=== PATIENT | female | born 1940 | race Caucasian/White ===

== ENCOUNTER 2016-08-28 13:36 | Inpatient (IN) | payer OTHER ==
[~2016-08-28] VITALS: Ht 165.1 cm; Wt 68.1 kg
[~2016-08-28 13:36] MED LIST: HYDC25 PO; LVXUNK
[2016-08-28] MEDS ORDERED: SODIUM CHLORIDE 0.9% 1000ML 1,000 ML IV STA ×2 (14:14→16:19)
[2016-08-28] MEDS ORDERED: ALBUT/IPRATROP 3MG/0.5MG NEB 3 ML VIAL INH STA (14:19)
[2016-08-28 14:30] LABS: INR 1.3 (0.9-1.1); PROTHROMBIN TIME (PATIENT) 14.3 SECONDS (9.0-12.0)
[2016-08-28 14:37] LABS: HEMATOCRIT 32.1 % (37-47); MEAN CELL VOLUME 85.4 fL (80-100); MEAN CORPUSCULAR HEMOGLOBIN 30.3 pg (25-34); MEAN CORPUSCULAR HGB CONC 35.5 g/dl (32-36); PLATELET COUNT 21 K/uL (130-400); RED BLOOD COUNT 3.76 M/uL (4.2-5.4)
[2016-08-28 14:40] LABS: ALT/SGPT 25 U/L (12-78); AST/SGOT 68 U/L (15-37); BLOOD UREA NITROGEN 16 mg/dl (7-18); BUN/CREATININE RATIO 18.5 (10-20); CALCIUM 7.8 mg/dl (8.5-10.1); CARBON DIOXIDE 24 mmol/L (21-32); CHLORIDE 95 mmol/L (98-107); CREATININE 0.88 mg/dl (0.60-1.20); GLUCOSE 91 mg/dl (70-99); POTASSIUM 3.4 mmol/L (3.5-5.1); SODIUM 131 mmol/L (136-145)
[2016-08-28 14:45] LABS: ALB/GLOB RATIO 1.3 (0.9-2); ALKALINE PHOSPHATASE 114 U/L (45-117)
[2016-08-28] MEDS ORDERED: HYDR12.56 PO (14:51)
[2016-08-28] MEDS ORDERED: LEVO100T PO (14:51)
[2016-08-28] MEDS ORDERED: CHOL100010 PO (14:51)
[2016-08-28 14:53] LABS: BASO % 0.3 %; BASO ABS # 0.01 K/uL (0-0.2); COMPLETE YES; IG% 1.5 %; LYMPH % 28.8 %; LYMPH ABS # 0.95 K/uL (1.2-3.4); NEUT % 49.4 %
--- NOTE | 2016-08-28 14:53 | DIAGNOSTIC IMAGING REPORT ---
CHEST ONE VIEW PORTABLE CLINICAL HISTORY: sob dyspnea COMPARISON STUDY: 09/15/2009 FINDINGS: The bones soft tissues and hemidiaphragms are normal. The cardiomediastinal silhouette is normal. The lungs are clear. The pulmonary vasculature is normal. IMPRESSION: Negative chest. Electronically signed by: Bassam Veliz M.D. 08/28/2016 2:52 PM Dictated Date/Time: 08/28/2016 2:51 PM
[2016-08-28] MEDS ORDERED: ONDANSETRON INJ 2 MG/ML 2 ML VIAL IV PRN (17:45)
--- NOTE | 2016-08-28 17:55 | EMERGENCY ROOM VISIT NOTE ---
History Report prepared by [place]: Nyasia Campos Under the Supervision of: Dr. Radha Lee D.O. First contact with patient: 13:58 Chief Complaint: SHORTNESS OF BREATH Stated Complaint: CAN'T BREATH -DIZZY Nursing Triage Summary: pt here with increased sob, dizziness x a few days. pt currently undergoing chemo tx for lymphoma. denies any cough or fevers History of Present Illness The patient is a 76 year old female who presents to the Emergency Room with complaints of worsening shortness of breath that started several weeks ago. The shortness of breath is worse with exertion. The patient's daughter states that the patient has received two chemotherapy treatments for lymphoma in her chest and abdomen. The patient's most recent treatment was around August 07 and she is due for her next treatment on September 09. The patient receives fluids the day after receiving treatment to make sure that she stays hydrated. The patient is also experiencing dizziness and lightheadedness with changes in position as well as a decreased appetite. She is also experiencing diffuse abdominal pain, but denies abdominal bloating. The patient states that her bowel movements have been intermittent, which may be secondary to her decreased food intake as well as being on pain pills prior to starting chemotherapy treatments. The patient's daughter states that the patient experienced constipation when she was on pain medication, but since then she has been taking a stool softener. She denies fevers, chills, chest pain or pressure, and diarrhea. The patient's daughter states that the patient has experienced some nausea and vomiting this morning. The patient is on medication for hypertension, which she took this morning. The patient's daughter adds that the patient was seen by her PCP twice, once 4 days ago and once 7 days ago. The patient was tachycardic during both of those visits in the 110s, per the patient's daughter. When the patient was seen by her PCP 7 days ago, she had an EKG and a chest x-ray done, which were both unremarkable. She also had a chest CT done 4 days ago and it showed that the lymphoma in her chest has decreased in size. The patient's daughter adds that the patient has an order for nasal cannula oxygen, but they have not picked it up yet. The patient's daughter called the patient's PCP and they recommended coming into the ED to make sure that there wasn't anything more significant going on. The patient denies any history of heart problems and she is not on any blood thinners. She denies any history of asthma or COPD. Source of History: patient, family (daughter) Onset: several weeks ago Position: chest Quality: other (shortness of breath) Timing: worsening Associated Symptoms: + abdominal pain (diffuse), + nausea, + vomiting, No chest pain, No chills, No diarrhea, No fevers Note: dizziness and lightheadedness with changes in position, decreased appetite, no abdominal bloating Review of Systems See HPI for pertinent positives & negatives. A total of 10 systems reviewed and were otherwise negative. 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 (2) Hypertension (3) Lymphoma (4) SOBOE (shortness of breath on exertion) (5) Thrombocytopenia Surgical Problems: (1) History of hysterectomy Family History Cancer Heart disease Hypertension Social History Smoking Status: Former Smoker Marital Status: Current/Historical Medications Scheduled Cholecalciferol (Vitamin D), 1,000 UNITS PO DAILY Hydrochlorothiazide (Hctz), 12.5 MG PO DAILY Levothyroxine Sodium (Synthroid), 100 MCG PO DAILY Allergies Coded Allergies: No Known Allergies (Unverified , 08/28/16) Physical Exam Vital Signs Date Time Temp Pulse Resp B/P Pulse Ox O2 Delivery O2 Flow Rate FiO2 08/28/16 17:17 94/47 08/28/16 17:16 82 23 95 08/28/16 16:46 92 23 77 08/28/16 16:41 107/48 08/28/16 16:34 95 22 92/42 94 Room Air 08/28/16 16:16 94 21 08/28/16 16:08 92/42 08/28/16 16:07 82/41 08/28/16 15:46 93 20 08/28/16 15:41 95 17 08/28/16 15:13 89/50 08/28/16 15:11 98 15 08/28/16 14:41 102 18 08/28/16 14:36 101 13 08/28/16 14:31 106 19 08/28/16 14:26 107 21 08/28/16 14:21 104 20 08/28/16 14:16 105 15 08/28/16 14:11 110 15 08/28/16 14:06 109 18 08/28/16 14:01 109 16 08/28/16 13:56 112 22 08/28/16 13:55 95 Room Air 08/28/16 13:55 37.1 114 20 75/44 95 Room Air 08/28/16 13:53 95 Room Air 08/28/16 13:52 114 08/28/16 13:51 95 Room Air 08/28/16 13:51 93/49 08/28/16 13:39 37.1 118 20 75/44 88 Room Air Physical Exam GENERAL: alert, ill appearing, well nourished, no distress, non-toxic, thin EYE EXAM: normal conjunctiva, PERRL and EOM's grossly intact OROPHARYNX: dentures in place, no exudate, no erythema, lips, buccal mucosa, and tongue normal and mucous membranes are moist NECK: supple, no nuchal rigidity, no adenopathy, non-tender LUNGS: Clear to auscultation. Normal chest wall mechanics HEART: no murmurs, S1 normal and S2 normal ABDOMEN: abdomen soft, generalized discomfort during exam, normo-active bowel sounds, no masses, no rebound or guarding. BACK: Back is symmetrical on inspection and there is no deformity, no midline tenderness, no CVA tenderness. SKIN: no rashes and no bruising UPPER EXTREMITIES: upper extremities are grossly normal. LOWER EXTREMITIES: No pitting edema. NEURO EXAM: Normal sensorium, cranial nerves II-XII grossly intact, normal speech, no gross weakness of arms, no gross weakness of legs. Medical Decision & Procedures ER Provider Diagnostic Interpretation: Radiology results have been interpreted by the radiologist and reviewed by me. CHEST ONE VIEW PORTABLE FINDINGS: The bones soft tissues and hemidiaphragms are normal. The cardiomediastinal silhouette is normal. The lungs are clear. The pulmonary vasculature is normal. IMPRESSION: Negative chest. Electronically signed by: Bassam Veliz M.D. 08/28/2016 2:52 PM Dictated Date/Time: 08/28/2016 2:51 PM Laboratory Results 08/28/16 14:06 Red Blood Count 3.76, Mean Corpuscular Volume 85.4, Mean Corpuscular Hemoglobin 30.3, Mean Corpuscular Hemoglobin Concent 35.5, Neutrophils (%) (Auto) 49.4, Lymphocytes (%) (Auto) 28.8, Monocytes (%) (Auto) 20.0, Eosinophils (%) (Auto) 0.0, Basophils (%) (Auto) 0.3, Neutrophils # (Auto) 1.63, Lymphocytes # (Auto) 0.95, Monocytes # (Auto) 0.66, Eosinophils # (Auto) 0.00, Basophils # (Auto) 0.01 08/28/16 14:06 Test 08/28/16 14:06 08/28/16 14:32 White Blood Count 3.30 K/uL (4.8-10.8) Red Blood Count 3.76 M/uL (4.2-5.4) Hemoglobin 11.4 g/dL (12.0-16.0) Hematocrit 32.1 % (37-47) Mean Corpuscular Volume 85.4 fL (80-100) Mean Corpuscular Hemoglobin 30.3 pg (25-34) Mean Corpuscular Hemoglobin Concent 35.5 g/dl (32-36) Platelet Count 21 K/uL (130-400) Neutrophils (%) (Auto) 49.4 % Lymphocytes (%) (Auto) 28.8 % Monocytes (%) (Auto) 20.0 % Eosinophils (%) (Auto) 0.0 % Basophils (%) (Auto) 0.3 % Neutrophils # (Auto) 1.63 K/uL (1.4-6.5) Lymphocytes # (Auto) 0.95 K/uL (1.2-3.4) Monocytes # (Auto) 0.66 K/uL (0.11-0.59) Eosinophils # (Auto) 0.00 K/uL (0-0.5) Basophils # (Auto) 0.01 K/uL (0-0.2) RDW Standard Deviation 53.5 fL (36.4-46.3) RDW Coefficient of Variation 17.1 % (11.5-14.5) Immature Granulocyte % (Auto) 1.5 % Immature Granulocyte # (Auto) 0.05 K/uL (0.00-0.02) Nucleated RBC Absolute Count (auto) 0.03 K/uL (0-0) Nucleated Red Blood Cells % 0.8 % Prothrombin Time 14.3 SECONDS (9.0-12.0) Prothromb Time International Ratio 1.3 (0.9-1.1) Activated Partial Thromboplast Time 25.2 SECONDS (21.0-31.0) Partial Thromboplastin Ratio 1.0 D-Dimer 370 ug/L FEU (0-500) Anion Gap 12.0 mmol/L (3-11) Est Creatinine Clear Calc Drug Dose 45.3 ml/min Estimated GFR () 74.5 Estimated GFR (Non- 64.3 BUN/Creatinine Ratio 18.5 (10-20) Calcium Level 7.8 mg/dl (8.5-10.1) Total Bilirubin 1.7 mg/dl (0.2-1) Aspartate Amino Transf (AST/SGOT) 68 U/L (15-37) Alanine Aminotransferase (ALT/SGPT) 25 U/L (12-78) Alkaline Phosphatase 114 U/L (45-117) Troponin I < 0.015 ng/ml (0-0.045) Pro-B-Type Natriuretic Peptide 868 pg/ml (0-900) Total Protein 5.0 gm/dl (6.4-8.2) Albumin 2.8 gm/dl (3.4-5.0) Globulin 2.2 gm/dl (2.5-4.0) Albumin/Globulin Ratio 1.3 (0.9-2) Bedside Troponin I 0.000 ng/ml (0-0.045) Laboratory results per my review. Medications Administered Medications (Trade) Dose Ordered Sig/Shiela Route Start Time Stop Time Status Last Admin Dose Admin Sodium Chloride (Nss 1000ml) 1,000 ml @ 999 mls/hr Q1H1M STAT IV 08/28/16 14:14 08/28/16 15:14 DC 08/28/16 14:54 999 MLS/HR Albuterol/ Ipratropium 3 ml 3 ml NOW STAT INH 08/28/16 14:19 08/28/16 14:20 DC 08/28/16 14:52 3 ML Sodium Chloride (Nss 1000ml) 1,000 ml @ 999 mls/hr Q1H1M STAT IV 08/28/16 16:19 08/28/16 17:19 DC 08/28/16 16:34 999 MLS/HR Acetaminophen (Tylenol Tab) 650 mg Q4H PRN PO 08/28/16 17:45 09/27/16 17:44 08/28/16 23:15 650 MG ECG Indication: SOB/dyspnea Rate (beats per minute): 110 Rhythm: sinus tachycardia Findings: PAC (occasional), no acute ischemic change, left axis deviation ( otherwise normal intervals), other (low voltage throughout) ED Course 1400: The patient was evaluated in room C8. A complete history and physical exam was performed. 1414: Ordered Sodium Chloride 1000 ml @ 999 mls/hr IV 1419: Ordered DuoNeb 3 ml INH 1507: I reassessed the patient. Her breathing is better and her tachycardia has improved. She is still hypotensive. 1607: I reevaluated the patient. She is resting comfortably, but her blood pressure is still low. 1619: Ordered Sodium Chloride 1000 ml @ 999 mls/hr IV 1640: I reassessed the patient. Her blood pressure is coming up. 1709: I reviewed the patient's case with Dr. Davi John. He asked me to call Hematology/Oncology. He will evaluate the patient for further management. 1716: Upon reevaluation, the patient is resting comfortably. I discussed the findings and the treatment plan with the patient. She expresses agreement and understanding. [facility] The patient will be evaluated for further management. 1725: I reviewed the patient's case with Dr. Hernandez - Hematology. He is in agreement with the treatment plan and agrees with not doing anything to further treat the patient at this time. Medical Decision Differential diagnoses includes but is not limited to pneumonia, bronchitis, COPD/Asthma exacerbation, pneumothorax, pulmonary embolism, congestive heart failure, acute coronary syndrome. Medication Reconciliation: I attest that I have personally reviewed the patient' s current medication list. Blood pressure screening: Patient was found to have an elevated blood pressure and was referred to their primary doctor for recheck and further treatment. Pt improved here following IVF and neb tx. No hypoxia. BP improved into 2nd liter of IVF. No further difficulty breathing after neb tx. Likely underlying copd, pt is a reformed smoker. Dimer negative, cxr negative, given improvement in breathing did not feel warranted emergent repeat chest Ct. Doubt cardiac pathology. Pt dehydrated, pancytopenic and worsening thrombocytopenia compared to outpt labs last week reviewed. Bilirubin improved from last week. No abd pain. Pt Bp and HR improved here, however pt still clinically dehydrated, admitted given immunocompromised, dehydrated, monitoring of labs. No active bleeding noted. No indication for platelet transfusion. Doubt bacteremia/ sepsis. Doubt neutropenic fever. Doubt vascular etiology. Other labs reassuring, doubt acute Gi pathology. Generalized discomfort, doubt perf, mesenteric ischemia, colitis, volvulus, Gu pathology. Pt with constipation and dehydration, decreased po intake all likely contributing. Abd soft, no r/g, no distention or tympany. Consults Time Called: 1705 Consulting Physician: Dr. Davi John Returned Call: 1709 I reviewed the patient's case with Dr. Davi John. He asked me to call Hematology/Oncology. He will evaluate the patient for further management. Additional Consults: Time Called: 1716 Consulted Physician: Dr. David Benson Returned Call: 1725 Additional Comments: I reviewed the patient's case with Dr. David Benson. He is in agreement with the treatment plan and agrees with not doing anything to further treat the patient at this time. Impression Primary Impression: Dehydration Additional Impressions: Dyspnea Hypotension Critical Care I have personally spent 30 minutes of critical care time in the direct management of this patient. This includes bedside care, interpretation of diagnostic studies, and testing, discussion with consultants, patient, and family members, and other required patient management activities. This 30 minutes is in excess of all separately billable procedures. Scribe Attestation The scribe's documentation has been prepared under my direction and personally reviewed by me in its entirety. I confirm that the note above accurately reflects all work, treatment, procedures, and medical decision making performed by me. Departure Information Dispostion Being Evaluated By Hospitalist Laurita Acuña M.D. (PCP) Patient Instructions My [facility] Problem Qualifiers Additional Impressions: Dyspnea Dyspnea type: dyspnea on exertion Qualified Codes: R06.09 - Other forms of dyspnea Hypotension Hypotension type: unspecified hypotension type Qualified Codes: I95.9 - Hypotension, unspecified
[2016-08-28] MEDS ORDERED: ALBUTEROL 0.083% NEBU SOLN 3 ML VIAL INH PRN (18:00)
[2016-08-28 18:30] VITALS: BP 95/56; TEMP 37; BMI 19.3
[2016-08-28 18:36] VITALS: BP 95/56; PULSE 97; TEMP 37; O2SAT 92
[2016-08-28] MEDS ORDERED: IV FLUIDS COMPLETED PRN (19:30)
--- NOTE | 2016-08-28 19:57 | HISTORY & PHYSICAL EXAMINATION ---
DATE OF ADMISSION: 08/28/2016 PRIMARY CARE PHYSICIAN: Dr. Azevedo. CHIEF COMPLAINT: Shortness of breath for the last 2 months. HISTORY OF PRESENT COMPLAINT: She is a 76-year-old female with significant past medical history including chronic lymphocytic leukemia, in relapse on monthly chemotherapy, chronic kidney disease stage III, thrombocytopenia, hypertension, hypothyroidism, apparently has been complaining of shortness of breath which has been ongoing for the last few months. The condition has gotten worse for the last few days and apparently she was seen by her primary care physician on for the same problem. She was advised to take oxygen, but the condition got worse and she was brought into the Emergency Room for further evaluation. She has had her chemo on 12 of August with [place] and she has had blood test done on that showed a white count of 4.30, hemoglobin 12.8, hematocrit 37.5, and platelets 49. She also had a CAT scan done that was on 24 August and reported as improved lymphadenopathy in the chest and abdomen with the exception of an enlarging right hilar lymph node with possible post infection/inflammatory changes in the right lung. In the Emergency Room, she got better with treatment with albuterol and also she got some IV fluid. She denies to any fever, chills or rigors. No abdominal pain, nausea, vomiting, no swelling of the legs. No weight gain, no chest pain, palpitation, no problem with urine and/or bowel habit. No dizziness, no blurred vision, no numbness or tingling in the extremities. At ER, her lab works remained fairly unremarkable, but she was admitted to medical floor for continuation of care. PAST MEDICAL HISTORY: Significant for chronic lymphocytic leukemia, in relapse and with ongoing chemo; thrombocytopenia, chronic kidney disease stage III, hypothyroidism and hypertension. PAST SURGICAL HISTORY: Significant for total hysterectomy in 1983 secondary to fibroids. FAMILY HISTORY: Brother has heart disease status post PTCA; father had heart disease, CABGs at the age of 50s and at 82; sister has heart disease as well; mother had a stroke at the age of 82. SOCIAL HISTORY: She is a . She lives alone. She quit smoking years ago with a 10-year, 10-packet history of smoking, does not use any alcohol and she has been reasonably ambulant. ALLERGIES: NKDA. MEDICATIONS AN OUTPATIENT: She has been on hydrochlorothiazide 12.5 mg daily, vitamin D 1000 units daily, and levothyroxine 100 mcg daily. REVIEW OF SYSTEMS: Other systemic system review unremarkable except those mentioned in history of present complaint. PHYSICAL EXAMINATION: GENERAL: On examination, in the Emergency Room, she was not having any acute distress. VITAL SIGNS: Temperature 37.1, pulse was 93, blood pressure 92/42 and saturation 95% on room air. HEENT: Unremarkable. NECK: Supple. No JVD, no bruit. CHEST: Clear to auscultate bilaterally. HEART: S1, S2 regular, no murmur. ABDOMEN: Soft, benign, nontender, no organomegaly. Bowel sounds present. EXTREMITIES: 1+ edema bilaterally. MUSCULOSKELETAL SYSTEM: No acute arthritis involving any joint. CENTRAL NERVOUS SYSTEM: She was alert, awake, oriented x3 and no focal sensory and/or motor deficit appreciated. LABORATORY DATA: Noted today - white count was 3.30, H\T\H 11.4/32.1 and platelet was 21. Her counts are better on with a white count 4.30, H\T\H 12.8/37.5, platelets 49. Sodium 131, potassium 3.4, chloride 95, carbon dioxide 24, BUN 16, creatinine 0.88, random glucose 91. Calcium 7.8, total bilirubin 1.7, AST 68. Troponin less than 0.05. Albumin was 2.8. PT/INR unremarkable. Her INR 1.3. IMAGING DATA: Chest x-ray, negative chest. EKG was in sinus rhythm, a rate of 110 per minute, normal axis and a few atrial premature complexes. IMPRESSION AND PLAN: 1. Progressive shortness of breath, the causes could be related to chronic obstructive pulmonary disease of being a smoker in the past. No evidence of any infiltration and/or effusion on x-ray, no evidence of congestive heart failure. We will get echocardiograph to evaluate cardiac function. The patient improved with bronchodilator. We will give nebulized bronchodilator while in the hospital. Will need to see bread racker as an outpatient and no antibiotic at this time because no signs or symptoms of infection. 2. Chronic lymphocytic leukemia in the labs, has been getting chemotherapy monthly. Last chemo was on 12 of August. She does have pancytopenia with Platelet count of 21, as of today. Will observe that in the hospital. 3. Pancytopenia with thrombocytopenia, in part due to ongoing chemo. No transfusion until the Platelet count is count below 10 or any bleeding episodes. The case was discussed with it applications manager home school coordinator. 4. Hypertension, has been on hydrochlorothiazide. Will hold for hypotension and give her a small amount of IV fluid. 5. Hyperthyroidism. Continue with replacement. 6. Gastrointestinal prophylaxis with Maalox, Mylanta. 7. Deep venous thrombosis prophylaxis with sequential compression devices. No pharmacological anticoagulation due to low platelet. 8. Code status - she will be a full code. In my clinical judgment, the beneficiary meets criteria as per CMS for 2-midnight stay in the hospital. MTDD
[2016-08-28] MEDS: NSS + 20MEQ KCL 1000ML 1,000 ML IV SCH (20:23)
[2016-08-28] MEDS: ACETAMINOPHEN 325 MG TAB PO PRN (23:15)
[2016-08-28 23:54] VITALS: BP 96/54; PULSE 107; TEMP 38.8; O2SAT 94
[2016-08-29] VITALS (12 sets, daily range): BP systolic 80–119; BP diastolic 45–68; PULSE 75–100; TEMP 36.4–37.6; O2SAT 92–99; BMI 20.2
[2016-08-29] MEDS: LEVOTHYROXINE 100 MCG TAB PO SCH (06:28)
[2016-08-29 06:57] LABS: BUN/CREATININE RATIO 18.1 (10-20); CALCIUM 7.1 mg/dl (8.5-10.1); CREATININE 0.72 mg/dl (0.60-1.20); MAGNESIUM 1.5 mg/dl (1.8-2.4); PHOSPHORUS 1.6 mg/dl (2.5-4.9); POTASSIUM 3.1 mmol/L (3.5-5.1)
[2016-08-29 07:00] LABS: HEMATOCRIT 28.5 % (37-47); MEAN CELL VOLUME 85.8 fL (80-100); MEAN CORPUSCULAR HEMOGLOBIN 28.6 pg (25-34); MEAN CORPUSCULAR HGB CONC 33.3 g/dl (32-36); PLATELET COUNT 14 K/uL (130-400); RED BLOOD COUNT 3.32 M/uL (4.2-5.4); WHITE BLOOD COUNT 2.32 K/uL (4.8-10.8)
[2016-08-29] MEDS ORDERED: POTASSIUM PHOS 3 MMOL/1 ML INFUSION IV STA (07:52)
[2016-08-29] MEDS ORDERED: POTASSIUM PHOSPHATE INJ 30 MMOL in SODIUM CHLORIDE 0.9% 500ML 500 ML IV ONE (08:30)
[2016-08-29] MEDS: CHOLECALCIFEROL 1000 INTER.UNIT TAB PO SCH (08:32)
[2016-08-29] MEDS: NSS + 20MEQ KCL 1000ML 1,000 ML IV SCH ×2 (08:36→23:53)
[2016-08-29] MEDS: MAGNESIUM SULFATE 1GM / D5W 1 GM in PREMIXED IN D5W 100 ML IV SCH ×2 (08:41→10:09)
[2016-08-29] MEDS: ACETAMINOPHEN 325 MG TAB PO PRN (15:32)
--- NOTE | 2016-08-29 16:28 | Progress Note ---
Internal Med Progress Note Date of Service: August 29, 2016. Provider Documentation: SUBJECTIVE: The patient was seen and examined Much better today NO SOB at rest OBJECTIVE: Vital Signs-as noted below Exam: General-no distress at rest Eyes-normal ENT-normal Neck-supple Lungs-Clear to auscultate bilaterally Heart-Regular,no murmur Abdomen-Benign,no masses,bowel sound present Extremities-trace edema bilaterally [id number] Lab data as noted below. ASSESSMENT & PLAN: Progressive shortness of breath, -The causes could be related to chronic obstructive pulmonary disease of being a smoker in the past. -No evidence of any infiltration and/or effusion on x-ray, -No evidence of any overt congestive heart failure. -We will get echocardiograph to evaluate cardiac function. -Nebulized Bronchodilators -Inhalers on discharge and OP Pulmonary appoint Electrolytes Imbalance Will supplement Recheck Chronic lymphocytic leukemia in the labs, has been getting chemotherapy monthly. Last chemo was on 12 of August. She does have pancytopenia with Platelet count of 21, as of today. Platelet 14 today Discussed with Oncology No platelet until it drops below Hypertension, has been on hydrochlorothiazide. Will hold for hypotension and give her a small amount of IV fluid. Hyperthyroidism. Continue with replacement. Gastrointestinal prophylaxis with Maalox, Mylanta. Deep venous thrombosis prophylaxis with sequential compression devices. No pharmacological anticoagulation due to low platelet. Code status Vital Signs: Date Time Temp Pulse Resp B/P Pulse Ox O2 Delivery O2 Flow Rate FiO2 08/29/16 14:51 37.6 94 16 97/45 93 Room Air 08/29/16 11:10 37.1 85 18 87/54 95 08/29/16 10:59 91 88/46 08/29/16 10:11 83 84/47 08/29/16 08:00 Room Air 08/29/16 07:17 36.5 75 16 80/46 99 Room Air 08/29/16 04:00 36.4 84 20 87/54 95 Room Air 87/45 08/29/16 02:13 36.6 08/29/16 00:00 95 Room Air 08/28/16 23:54 38.8 107 20 96/54 94 Room Air 08/28/16 18:36 37.0 97 20 95/56 92 08/28/16 18:30 37.0 20 95/56 Room Air 08/28/16 18:16 37.1 96 23 94/47 95 08/28/16 17:55 96 08/28/16 17:17 94/47 08/28/16 17:16 82 23 95 08/28/16 16:46 92 23 77 08/28/16 16:41 107/48 08/28/16 16:34 95 22 92/42 94 Room Air Lab Results: Results Past 24 Hours Test 08/29/16 05:43 Range/Units White Blood Count 2.32 4.8-10.8 K/uL Red Blood Count 3.32 4.2-5.4 M/uL Hemoglobin 9.5 12.0-16.0 g/dL Hematocrit 28.5 37-47 % Mean Corpuscular Volume 85.8 80-100 fL Mean Corpuscular Hemoglobin 28.6 25-34 pg Mean Corpuscular Hemoglobin Concent 33.3 32-36 g/dl RDW Standard Deviation 54.3 36.4-46.3 fL RDW Coefficient of Variation 17.1 11.5-14.5 % Platelet Count 14 130-400 K/uL Sodium Level 135 136-145 mmol/L Potassium Level 3.1 3.5-5.1 mmol/L Chloride Level 102 98-107 mmol/L Carbon Dioxide Level 23 21-32 mmol/L Anion Gap 10.0 3-11 mmol/L Blood Urea Nitrogen 13 7-18 mg/dl Creatinine 0.72 0.60-1.20 mg/dl Est Creatinine Clear Calc Drug Dose 58.8 ml/min Estimated GFR () 94.9 Estimated GFR (Non- 81.9 BUN/Creatinine Ratio 18.1 10-20 Random Glucose 97 70-99 mg/dl Calcium Level 7.1 8.5-10.1 mg/dl Phosphorus Level 1.6 2.5-4.9 mg/dl Magnesium Level 1.5 1.8-2.4 mg/dl
[2016-08-30] VITALS (10 sets, daily range): BP systolic 90–136; BP diastolic 50–72; PULSE 74–120; TEMP 36.4–38.1; O2SAT 90–96; BMI 21.0
[2016-08-30] MEDS: LEVOTHYROXINE 100 MCG TAB PO SCH (07:03)
[2016-08-30] MEDS: CHOLECALCIFEROL 1000 INTER.UNIT TAB PO SCH (07:57)
[2016-08-30 08:18] LABS: PLATELET COUNT 11 K/uL (130-400)
[2016-08-30 08:19] LABS: HEMATOCRIT 27.2 % (37-47); MEAN CELL VOLUME 86.3 fL (80-100); MEAN CORPUSCULAR HEMOGLOBIN 30.2 pg (25-34); RED BLOOD COUNT 3.15 M/uL (4.2-5.4); WHITE BLOOD COUNT 2.87 K/uL (4.8-10.8)
[2016-08-30 08:34] LABS: BUN/CREATININE RATIO 15.4 (10-20); CREATININE 0.59 mg/dl (0.60-1.20); MAGNESIUM 1.7 mg/dl (1.8-2.4); POTASSIUM 3.9 mmol/L (3.5-5.1)
[2016-08-30 08:48] LABS: MEAN CORPUSCULAR HGB CONC 34.9 g/dl (32-36)
[2016-08-30 08:50] LABS: CALCIUM 7.3 mg/dl (8.5-10.1); PHOSPHORUS 1.4 mg/dl (2.5-4.9)
[2016-08-30] MEDS ORDERED: SODIUM PHOSPHATE 3 MMOL/1 ML INFUSION IV STA (09:00)
[2016-08-30] MEDS ORDERED: SODIUM PHOSPHATE INJ 30 MMOL in SODIUM CHLORIDE 0.9% 500ML 500 ML IV ONE (09:45)
--- NOTE | 2016-08-30 09:50 | ECHOCARDIOGRAM REPORT ---
*NOTICE TO RECEIVING [facility] This information is strictly Confidential and protected under [place] law. [place] law prohibits you from making any further disclosure of this information unless further disclosure is expressly permitted by the written consent of the person to whom it pertains or is authorized by law. A general authorization for the release of medical or other information is not sufficient for this purpose. Hospital accepts no responsibility if the information is made available to any other person, INCLUDING THE PATIENT. Interpretation Summary * Name: KIERA STARKEY Study Date: 08/30/2016 07:39 AM BP: 90/50 mmHg * Patient Location: [id number]\S\E419\S\1 HR: 88 * : 1940 (M/d/yyyy) Gender: Female Height: 64 in * Age: 76 yrs Ethnicity: CA Weight: 114 lb * Ordering Physician: Thien Tomlinson * Referring Physician: Laurita Azevedo * Performed By: Irina Foster * * Reason For Study: PROGRESSIVE SOB, LEG EDEMA * BSA: 1.5 m2 * -- Conclusions -- * The left ventricle is normal in size. * The left ventricular wall motion is normal. * Ejection Fraction = >70 %. * Grade I diastolic dysfunction, (abnormal relaxation pattern). * There is mild tricuspid regurgitation. * Right ventricular systolic pressure is elevated at 40-50mmHg. Procedure Details * A complete two-dimensional transthoracic echocardiogram was performed (2D, M-mode, Doppler and color flow Doppler). Left Ventricle * The left ventricle is normal in size. * There is moderate concentric left ventricular hypertrophy. * Ejection Fraction = >70 %. * Left ventricular systolic function is normal. * The left ventricular wall motion is normal. Right Ventricle * The right ventricle is normal in size and function. Atria * The left atrial size is normal. * Right atrial size is normal. * No ASD detected; PFO is not assessed. Mitral Valve * The mitral valve anatomy is normal. * There is no mitral valve stenosis. * There is trace mitral regurgitation. Tricuspid Valve * The tricuspid valve anatomy is normal. * There is no tricuspid stenosis. * There is mild tricuspid regurgitation. * Right ventricular systolic pressure is elevated at 40-50mmHg. Aortic Valve * The aortic valve is trileaflet. * No hemodynamically significant valvular aortic stenosis. * No aortic regurgitation is present. Pulmonic Valve * The pulmonic valve is not well visualized. * There is no pulmonic valvular stenosis. * Trace pulmonic valvular regurgitation. Great Vessels * The aortic root is normal size. Pericardium/Pleural * There is no pericardial effusion. Great Vessels * Normal inferior vena cava diameter and respiratory variation suggests normal central venous pressure. Left Ventricular Diastolic Function * Grade I diastolic dysfunction, (abnormal relaxation pattern). MMode 2D Measurements and Calculations IVSd 1.4 cm IVSs 1.9 cm LVIDd 3.4 cm LVIDs 2.0 cm LVPWd 1.0 cm LVPWs 1.6 cm IVS/LVPW 1.3 FS 41.6 % EDV(Teich) 46.9 ml ESV(Teich) 12.3 ml EF(Teich) 73.7 % EDV(cubed) 38.8 ml ESV(cubed) 7.7 ml EF(cubed) 80.1 % % IVS thick 38.8 % % LVPW thick 57.5 % LV mass(C)d 130.4 grams LV mass(C)dI 84.7 grams/m\S\2 LV mass(C)s 134.2 grams LV mass(C)sI 87.1 grams/m\S\2 SV(Teich) 34.6 ml SI(Teich) 22.4 ml/m\S\2 SV(cubed) 31.0 ml SI(cubed) 20.1 ml/m\S\2 ACS 1.7 cm LA dimension 2.6 cm asc Aorta Diam 3.1 cm LVOT diam 2.0 cm LVOT area 3.3 cm\S\2 LVAd ap4 17.4 cm\S\2 LVLd ap4 6.6 cm EDV(MOD-sp4) 38.9 ml EDV(sp4-el) 39.2 ml LVAs ap4 8.0 cm\S\2 LVLs ap4 5.3 cm ESV(MOD-sp4) 11.0 ml ESV(sp4-el) 10.4 ml EF(MOD-sp4) 71.6 % EF(sp4-el) 73.4 % LVAd ap2 14.2 cm\S\2 LVLd ap2 6.3 cm EDV(MOD-sp2) 27.1 ml EDV(sp2-el) 27.1 ml LVAs ap2 6.5 cm\S\2 LVLs ap2 5.1 cm ESV(MOD-sp2) 7.4 ml ESV(sp2-el) 7.1 ml EF(MOD-sp2) 72.7 % EF(sp2-el) 73.7 % LVLd %diff -4.07 % EDV(MOD-bp) 33.0 ml LVLs %diff -3.27 % ESV(MOD-bp) 9.1 ml EF(MOD-bp) 72.5 % SV(MOD-sp4) 27.9 ml SI(MOD-sp4) 18.1 ml/m\S\2 SV(MOD-sp2) 19.7 ml SI(MOD-sp2) 12.8 ml/m\S\2 SV(MOD-bp) 23.9 ml SI(MOD-bp) 15.5 ml/m\S\2 SV(sp4-el) 28.8 ml SI(sp4-el) 18.7 ml/m\S\2 SV(sp2-el) 20.0 ml SI(sp2-el) 13.0 ml/m\S\2 Doppler Measurements and Calculations MV E max vic 72.3 cm/sec MV A max vic 82.5 cm/sec MV E/A 0.88 MV dec time 0.33 sec Ao V2 max 125.8 cm/sec Ao max PG 6.3 mmHg Ao max PG (full) 2.2 mmHg DEVONTE(V,A) 2.6 cm\S\2 DEVONTE(V,D) 2.6 cm\S\2 LV V1 max PG 4.1 mmHg LV V1 max 101.4 cm/sec PA V2 max 82.0 cm/sec PA max PG 2.7 mmHg PI end-d vic 95.1 cm/sec TR max vic 335.5 cm/sec
[2016-08-30] MEDS: MAGNESIUM SULFATE 1GM / D5W 1 GM in PREMIXED IN D5W 100 ML IV SCH ×2 (10:01→11:11)
[2016-08-30] MEDS: NSS + 20MEQ KCL 1000ML 1,000 ML IV SCH (11:15)
[2016-08-30] MEDS: ACETAMINOPHEN 325 MG TAB PO PRN (13:25)
[2016-08-30] MEDS ORDERED: VANCOMYCIN 1GM/270ML NSS IV STA (13:32)
--- NOTE | 2016-08-30 14:10 | Progress Note ---
Internal Med Progress Note Date of Service: August 30, 2016. Provider Documentation: SUBJECTIVE: The patient was seen and examined This morning and again immediately after Platelet transfusion Has had fever of 39 deg and shakes with confusion immediately after the transfusion OBJECTIVE: Vital Signs-as noted below Exam: General-minimal distress at rest Pleasantly confused Eyes-normal ENT-normal Neck-supple Lungs-occasional crackles bilaterally Heart-Regular,no murmur Abdomen-Benign,no masses,bowel sound present Extremities-trace edema bilaterally Neuro-AAox3 Lab data as noted below. ASSESSMENT & PLAN: Fever,chills with confusion Immediately after Platelet transfusion Could be secondary to transfusion reaction,Sepsis with neutropenia No focal neuro deficit to suggest any IC bleed-will monitor Blood cultures,CXR,Blood tests including Lactate and started on IV Zosyn and Vanco for sepsis If deteriorates will transfer to [facility] Progressive shortness of breath, -The causes could be related to chronic obstructive pulmonary disease of being a smoker in the past. -No evidence of any infiltration and/or effusion on x-ray, -No evidence of any overt congestive heart failure. -We will get echocardiograph to evaluate cardiac function. -Nebulized Bronchodilators -Inhalers on discharge and OP Pulmonary appoint Electrolytes Imbalance Will supplement Recheck Chronic lymphocytic leukemia in the labs, has been getting chemotherapy monthly. Last chemo was on 12 of August. She does have pancytopenia with Platelet count of 21, as of today. Platelet 11 today Discussed with Oncology Transfused 1 unit of platelet Hypertension, has been on hydrochlorothiazide. Will hold for hypotension and give her a small amount of IV fluid. Hyperthyroidism. Continue with replacement. Gastrointestinal prophylaxis with Maalox, Mylanta. Deep venous thrombosis prophylaxis with sequential compression devices. No pharmacological anticoagulation due to low platelet. Code status -Full Discussed with the Daughter Vital Signs: Date Time Temp Pulse Resp B/P Pulse Ox O2 Delivery O2 Flow Rate FiO2 08/30/16 13:16 38.1 119 24 120/63 90 Room Air 08/30/16 11:44 37.1 108 18 136/72 08/30/16 11:29 37.1 96 18 101/61 08/30/16 11:09 36.7 105 20 93/52 96 Room Air 08/30/16 08:00 Room Air 08/30/16 07:24 36.5 88 18 90/50 92 08/30/16 04:12 36.9 120 24 97/55 92 Room Air 08/30/16 00:00 95 Room Air 08/29/16 23:47 37.6 100 20 119/68 93 Room Air 08/29/16 23:38 37.6 100 20 119/68 93 Room Air 08/29/16 19:01 36.5 81 18 91/53 92 Room Air 08/29/16 16:30 36.7 08/29/16 16:00 Room Air 08/29/16 14:51 37.6 94 16 97/45 93 Room Air Lab Results: Results Past 24 Hours Test 08/30/16 08:00 08/30/16 13:32 08/30/16 13:39 Range/Units White Blood Count 2.87 4.8-10.8 K/uL Red Blood Count 3.15 4.2-5.4 M/uL Hemoglobin 9.5 12.0-16.0 g/dL Hematocrit 27.2 37-47 % Mean Corpuscular Volume 86.3 80-100 fL Mean Corpuscular Hemoglobin 30.2 25-34 pg Mean Corpuscular Hemoglobin Concent 34.9 32-36 g/dl RDW Standard Deviation 55.3 36.4-46.3 fL RDW Coefficient of Variation 17.6 11.5-14.5 % Platelet Count 11 130-400 K/uL Sodium Level 135 136-145 mmol/L Potassium Level 3.9 3.5-5.1 mmol/L Chloride Level 103 98-107 mmol/L Carbon Dioxide Level 21 21-32 mmol/L Anion Gap 11.0 3-11 mmol/L Blood Urea Nitrogen 9 7-18 mg/dl Creatinine 0.59 0.60-1.20 mg/dl Est Creatinine Clear Calc Drug Dose 74.1 ml/min Estimated GFR () 103.9 Estimated GFR (Non- 89.7 BUN/Creatinine Ratio 15.4 10-20 Random Glucose 93 70-99 mg/dl Calcium Level 7.3 8.5-10.1 mg/dl Phosphorus Level 1.4 2.5-4.9 mg/dl Magnesium Level 1.7 1.8-2.4 mg/dl Microbiology Results 08/30/16 Blood Culture, Fabi Batch Pending 08/30/16 Blood Culture, Fabi Batch Pending
[2016-08-30 14:26] LABS: INR 1.3 (0.9-1.1); PROTHROMBIN TIME (PATIENT) 13.7 SECONDS (9.0-12.0)
[2016-08-30] MEDS ORDERED: HYDROCORTISONE IV 100 MG in SYRINGE 0 ML IV ONE (14:30)
[2016-08-30] MEDS ORDERED: PIPERACILL/TAZOBAC CONSULT ACTIVE PRN (14:30)
[2016-08-30] MEDS ORDERED: VANCOMYCIN CONSULT ACTIVE PRN (14:30)
[2016-08-30 14:39] LABS: HEMATOCRIT 26.8 % (37-47); MEAN CELL VOLUME 86.5 fL (80-100); MEAN CORPUSCULAR HEMOGLOBIN 30.3 pg (25-34); MEAN CORPUSCULAR HGB CONC 35.1 g/dl (32-36); PLATELET COUNT 20 K/uL (130-400); WHITE BLOOD COUNT 2.66 K/uL (4.8-10.8)
[2016-08-30 14:43] LABS: BUN/CREATININE RATIO 11.6 (10-20); CALCIUM 7.1 mg/dl (8.5-10.1); CREATININE 0.81 mg/dl (0.60-1.20); POTASSIUM 3.9 mmol/L (3.5-5.1)
--- NOTE | 2016-08-30 14:45 | DIAGNOSTIC IMAGING REPORT ---
CHEST ONE VIEW PORTABLE CLINICAL HISTORY: Sepsis. COMPARISON STUDY: Chest radiograph August 28, 2016. FINDINGS: The patient is mildly rotated. Cardiomediastinal silhouette is stable. There is no pneumothorax or pleural effusion. There is no evidence of pulmonary edema. Minimal right lower lung opacity is present. IMPRESSION: Minimal right lower lung opacity which could reflect atelectasis or a mild infectious process. Electronically signed by: Kelton Garvey M.D. 08/30/2016 2:44 PM Dictated Date/Time: 08/30/2016 2:42 PM
[2016-08-30] MEDS ORDERED: PIPERACILL/TAZOBAC IV 3.375 GM in DEXTROSE 5% 100ML 100 ML IV SCH (15:00)
[2016-08-30] MEDS ORDERED: VANCOMYCIN INJ 1,400 MG in SODIUM CHLORIDE 0.9% 500ML 500 ML IV SCH (15:00)
[2016-08-30 15:10] LABS: ANISOCYTOSIS PRESENT; COMPLETE YES; LYMPH ABS # 0.87 K/uL (1.2-3.4); LYMPHOCYTE % 32.8 %; META ABS # 0.02 K/uL (0-0); METAMYELOCYTE % 0.9 %; NEUTROPHILS % 53.4 %; SMUDGE CELLS PRESENT
--- NOTE | 2016-08-30 15:13 | Pharmacy Progress Note ---
Pharmacy Abx Initial Consult Date of Service August 30, 2016. Pharmacy Dosing Scope Date of Consult: 08/30/16 Consultation requested by: Dr. Tomlinson Pharmacy is consulted to initiate Vancomycin IV dosing therapy, order appropriate labs and adjust drug dose/frequency. Subjective The patient is a 76 year old female admitted on August 28, 2016 at 17:48. Objective Height (Feet): 5 Height (Inches): 5.00 Weight (Kilograms): 57.300 Vital Signs (Past 12Hrs) Vital Signs Past 12 Hours Date Time Temp Pulse Resp B/P Pulse Ox O2 Delivery O2 Flow Rate FiO2 08/30/16 14:35 94 Nasal Cannula 2.0 08/30/16 14:29 37.4 18 104/61 92 Room Air 08/30/16 13:16 38.1 119 24 120/63 90 Room Air 08/30/16 11:44 37.1 108 18 136/72 08/30/16 11:29 37.1 96 18 101/61 08/30/16 11:09 36.7 105 20 93/52 96 Room Air 08/30/16 08:00 Room Air 08/30/16 07:24 36.5 88 18 90/50 92 08/30/16 04:12 36.9 120 24 97/55 92 Room Air Lab Results (24Hrs) Test 08/30/16 08:00 08/30/16 14:01 White Blood Count 2.87 K/uL (4.8-10.8) 2.66 K/uL (4.8-10.8) Red Blood Count 3.15 M/uL (4.2-5.4) 3.10 M/uL (4.2-5.4) Hemoglobin 9.5 g/dL (12.0-16.0) 9.4 g/dL (12.0-16.0) Hematocrit 27.2 % (37-47) 26.8 % (37-47) Mean Corpuscular Volume 86.3 fL (80-100) 86.5 fL (80-100) Mean Corpuscular Hemoglobin 30.2 pg (25-34) 30.3 pg (25-34) Mean Corpuscular Hemoglobin Concent 34.9 g/dl (32-36) 35.1 g/dl (32-36) RDW Standard Deviation 55.3 fL (36.4-46.3) 55.7 fL (36.4-46.3) RDW Coefficient of Variation 17.6 % (11.5-14.5) 17.7 % (11.5-14.5) Platelet Count 11 K/uL (130-400) 20 K/uL (130-400) Sodium Level 135 mmol/L (136-145) 135 mmol/L (136-145) Potassium Level 3.9 mmol/L (3.5-5.1) 3.9 mmol/L (3.5-5.1) Chloride Level 103 mmol/L (98-107) 103 mmol/L (98-107) Carbon Dioxide Level 21 mmol/L (21-32) 24 mmol/L (21-32) Anion Gap 11.0 mmol/L (3-11) 8.0 mmol/L (3-11) Blood Urea Nitrogen 9 mg/dl (7-18) 9 mg/dl (7-18) Creatinine 0.59 mg/dl (0.60-1.20) 0.81 mg/dl (0.60-1.20) Est Creatinine Clear Calc Drug Dose 74.1 ml/min 54.0 ml/min Estimated GFR () 103.9 82.3 Estimated GFR (Non- 89.7 71.0 BUN/Creatinine Ratio 15.4 (10-20) 11.6 (10-20) Random Glucose 93 mg/dl (70-99) 110 mg/dl (70-99) Calcium Level 7.3 mg/dl (8.5-10.1) 7.1 mg/dl (8.5-10.1) Phosphorus Level 1.4 mg/dl (2.5-4.9) Magnesium Level 1.7 mg/dl (1.8-2.4) Nucleated RBC Absolute Count (auto) 0.03 K/uL (0-0) Nucleated Red Blood Cells % 1.2 % Prothrombin Time 13.7 SECONDS (9.0-12.0) Prothromb Time International Ratio 1.3 (0.9-1.1) Activated Partial Thromboplast Time 26.8 SECONDS (21.0-31.0) Partial Thromboplastin Ratio 1.0 Lactic Acid Level 3.7 mmol/L (0.4-2.0) Total Bilirubin 1.0 mg/dl (0.2-1) Direct Bilirubin 0.3 mg/dl (0-0.2) Aspartate Amino Transf (AST/SGOT) 65 U/L (15-37) Alanine Aminotransferase (ALT/SGPT) 20 U/L (12-78) Alkaline Phosphatase 107 U/L (45-117) Total Protein 4.2 gm/dl (6.4-8.2) Albumin 2.2 gm/dl (3.4-5.0) Micro Results Date/Time Source Procedure Growth Status 08/30/16 14:01 Blood Blood Culture Pending Received 08/30/16 13:57 Blood Blood Culture Pending Received 08/28/16 14:25 Blood Blood Culture - Preliminary NO GROWTH TO DATE. Resulted 08/28/16 14:06 Blood Blood Culture - Preliminary NO GROWTH TO DATE. Resulted Risk Factors for Resistance * Immunocompromised because of monthly chemotherapy. Patient has CLL. Assessment & Plan Assessment 76 year old female on monthly chemotherapy for CLL. Immunocompromised and probably with neutropenia. Plan Vancomycin for empiric treatment of possible Sepsis with neutropenia. Vancomycin IV * Loading dose: 1400 mg (25mg/kg) ordered today. * Maintenance dose: Vancomycin 1000 mg IV (17.5 mg/kg) every 24 hours * Goal trough level for Sepsis : 15 to 20 mcg/mL * A trough level has not been ordered yet since Vancomycin is going to auto-d/c after 48 hrs since indication of empiric therapy. * If Sepsis is confirmed and Vanco continues beyond 48h, will draw a trough on . * Patient with CKD stage [address] Tomlinson's notes. Hence will use Scr of 0.8, Crcl ~54. Pharmacy will continue to follow and will adjust dose/frequency as necessary. Thank you.
[2016-08-30] MEDS ORDERED: SODIUM CHLORIDE 0.9% 1000ML 1,000 ML IV SCH (16:00)
[2016-08-30] MEDS ORDERED: NURSING VERBAL MED ORDER ONE (16:15)
[2016-08-30] MEDS: PIPERACILL/TAZOBAC IV 3.375 GM in DEXTROSE 5% 100ML 100 ML IV SCH (20:26)
[2016-08-31] VITALS (8 sets, daily range): BP systolic 91–113; BP diastolic 56–73; PULSE 71–98; TEMP 36.4–36.7; O2SAT 93–97; Ht 165.1 cm; Wt 68.1 kg
[2016-08-31] MEDS: NSS + 20MEQ KCL 1000ML 1,000 ML IV SCH ×2 (01:40→13:58)
[2016-08-31] MEDS: PIPERACILL/TAZOBAC IV 3.375 GM in DEXTROSE 5% 100ML 100 ML IV SCH ×3 (03:49→21:59)
[2016-08-31] MEDS: LEVOTHYROXINE 100 MCG TAB PO SCH (05:49)
[2016-08-31 07:08] LABS: BUN/CREATININE RATIO 14.5 (10-20); CALCIUM 7.3 mg/dl (8.5-10.1); CREATININE 0.58 mg/dl (0.60-1.20); POTASSIUM 4.1 mmol/L (3.5-5.1)
[2016-08-31 07:31] LABS: HEMATOCRIT 30.9 % (37-47); MEAN CELL VOLUME 86.3 fL (80-100); MEAN CORPUSCULAR HEMOGLOBIN 29.9 pg (25-34); MEAN CORPUSCULAR HGB CONC 34.6 g/dl (32-36); PLATELET COUNT 10 K/uL (130-400); RED BLOOD COUNT 3.58 M/uL (4.2-5.4); WHITE BLOOD COUNT 3.07 K/uL (4.8-10.8)
[2016-08-31 07:32] LABS: PLT ESTIMATE SIGNIFIC DECREASED
[2016-08-31] MEDS: CHOLECALCIFEROL 1000 INTER.UNIT TAB PO SCH (07:38)
[2016-08-31] MEDS ORDERED: SODIUM PHOSPHATE 3 MMOL/1 ML INFUSION IV STA (09:55)
[2016-08-31] MEDS ORDERED: SODIUM PHOSPHATE INJ 24 MMOL in SODIUM CHLORIDE 0.9% 500ML 500 ML IV SCH (10:30)
[2016-08-31] MEDS ORDERED: VANCOMYCIN INJ 1,000 MG in SODIUM CHLORIDE 0.9% 250ML 250 ML IV SCH (14:00)
--- NOTE | 2016-08-31 14:51 | Progress Note ---
Internal Med Progress Note Date of Service: August 31, 2016. Provider Documentation: SUBJECTIVE: The patient was seen and examined This morning and again immediately after Platelet transfusion Has had fever of 39 deg and shakes with confusion immediately after the transfusion 08/30/16 Much better now No more confusion OBJECTIVE: Vital Signs-as noted below Exam: General-minimal distress at rest Pleasantly confused Eyes-normal ENT-normal Neck-supple Lungs-occasional crackles bilaterally Heart-Regular,no murmur Abdomen-Benign,no masses,bowel sound present Extremities-trace edema bilaterally Neuro-AAox3 Lab data as noted below. ASSESSMENT & PLAN: Fever,chills with confusion Immediately after Platelet transfusion Could be secondary to transfusion reaction,Sepsis with neutropenia No focal neuro deficit to suggest any IC bleed-will monitor Blood cultures,CXR,Blood tests including Lactate and started on IV Zosyn and Vanco for sepsis If deteriorates will transfer to [facility] Resolved Received another unit of Platelet without any problem Continue current antibiotic for now Progressive shortness of breath, -The causes could be related to chronic obstructive pulmonary disease of being a smoker in the past. -No evidence of any infiltration and/or effusion on x-ray, -No evidence of any overt congestive heart failure. -We will get echocardiograph to evaluate cardiac function. -ECHO:: * The left ventricle is normal in size. * The left ventricular wall motion is normal. * Ejection Fraction = >70 %. * Grade I diastolic dysfunction, (abnormal relaxation pattern). * There is mild tricuspid regurgitation. * Right ventricular systolic pressure is elevated at 40-50mmHg. -Nebulized Bronchodilators -Inhalers on discharge and OP Pulmonary appoint Electrolytes Imbalance Will supplement Recheck Chronic lymphocytic leukemia in the labs, has been getting chemotherapy monthly. Last chemo was on 12 of August. She does have pancytopenia with Platelet count of 21, as of today. Platelet 11 today Discussed with Oncology Transfused 2 units of platelet so far Hypertension, has been on hydrochlorothiazide. Will hold for hypotension and give her a small amount of IV fluid. Hyperthyroidism. Continue with replacement. Gastrointestinal prophylaxis with Maalox, Mylanta. Deep venous thrombosis prophylaxis with sequential compression devices. No pharmacological anticoagulation due to low platelet. Code status -Full Discussed with the Daughter again Likely home in a day or two Vital Signs: Date Time Temp Pulse Resp B/P Pulse Ox O2 Delivery O2 Flow Rate FiO2 08/31/16 11:50 36.5 98 16 112/73 96 08/31/16 11:20 36.4 89 16 100/65 08/31/16 11:05 36.5 89 16 103/64 97 08/31/16 10:45 36.6 97 18 107/68 08/31/16 08:06 36.5 80 16 111/65 95 Room Air 08/31/16 08:00 Room Air 08/31/16 03:57 36.4 71 20 91/56 97 Room Air 08/31/16 00:00 Room Air 08/30/16 23:19 36.4 74 18 107/65 96 Room Air 08/30/16 16:00 Room Air Lab Results: Results Past 24 Hours Test 08/31/16 06:25 Range/Units White Blood Count 3.07 4.8-10.8 K/uL Red Blood Count 3.58 4.2-5.4 M/uL Hemoglobin 10.7 12.0-16.0 g/dL Hematocrit 30.9 37-47 % Mean Corpuscular Volume 86.3 80-100 fL Mean Corpuscular Hemoglobin 29.9 25-34 pg Mean Corpuscular Hemoglobin Concent 34.6 32-36 g/dl RDW Standard Deviation 55.3 36.4-46.3 fL RDW Coefficient of Variation 17.3 11.5-14.5 % Platelet Count 10 130-400 K/uL Platelet Estimate SIGNIFIC DECREASED Sodium Level 139 136-145 mmol/L Potassium Level 4.1 3.5-5.1 mmol/L Chloride Level 107 98-107 mmol/L Carbon Dioxide Level 24 21-32 mmol/L Anion Gap 8.0 3-11 mmol/L Blood Urea Nitrogen 8 7-18 mg/dl Creatinine 0.58 0.60-1.20 mg/dl Est Creatinine Clear Calc Drug Dose 75.4 ml/min Estimated GFR () 104.5 Estimated GFR (Non- 90.2 BUN/Creatinine Ratio 14.5 10-20 Random Glucose 113 70-99 mg/dl Calcium Level 7.3 8.5-10.1 mg/dl Phosphorus Level 2.0 2.5-4.9 mg/dl Magnesium Level 2.0 1.8-2.4 mg/dl
--- NOTE | 2016-08-31 15:17 | Pharmacy Progress Note ---
Pharmacy Antibiotic Prog Note Date of Service August 31, 2016. Subjective The patient is currently receiving vancomycin and zosyn for PNA The patient is currently on day # 2 of IV therapy. Objective Height (Feet): 5 Height (Inches): 5.00 Weight (Kilograms): 60.000 Lab Results (24hrs): Test 08/31/16 06:25 White Blood Count 3.07 K/uL (4.8-10.8) Red Blood Count 3.58 M/uL (4.2-5.4) Hemoglobin 10.7 g/dL (12.0-16.0) Hematocrit 30.9 % (37-47) Mean Corpuscular Volume 86.3 fL (80-100) Mean Corpuscular Hemoglobin 29.9 pg (25-34) Mean Corpuscular Hemoglobin Concent 34.6 g/dl (32-36) RDW Standard Deviation 55.3 fL (36.4-46.3) RDW Coefficient of Variation 17.3 % (11.5-14.5) Platelet Count 10 K/uL (130-400) Platelet Estimate SIGNIFIC DECREASED Sodium Level 139 mmol/L (136-145) Potassium Level 4.1 mmol/L (3.5-5.1) Chloride Level 107 mmol/L (98-107) Carbon Dioxide Level 24 mmol/L (21-32) Anion Gap 8.0 mmol/L (3-11) Blood Urea Nitrogen 8 mg/dl (7-18) Creatinine 0.58 mg/dl (0.60-1.20) Est Creatinine Clear Calc Drug Dose 75.4 ml/min Estimated GFR () 104.5 Estimated GFR (Non- 90.2 BUN/Creatinine Ratio 14.5 (10-20) Random Glucose 113 mg/dl (70-99) Calcium Level 7.3 mg/dl (8.5-10.1) Phosphorus Level 2.0 mg/dl (2.5-4.9) Magnesium Level 2.0 mg/dl (1.8-2.4) Assessment & Plan Patient on vancomycin and zosyn empirically for possible pneumonia. BC x 2 are no growth, repeat BC are pending. Vancomycin: * Scr improved from 0.8 to 0.58 mg/dL today (CrCl ~75 ml/min) * Will adjust vancomycin to 1000 mg iv q 14 hrs to achieve an estimated trough ~ 15-20 mcg/ml * Abx ordered as empiric, will assess 09/01 if need to be continued * Estimated kinetics: t1/2~11 hrs, ke~0.06 hr-1 Zosyn: * 3.375 gm iv q 8 hrs (appropriate for CrCl >20 ml/min); no change Pharmacy will continue to follow and will adjust dose/frequency as necessary. Thank you
[2016-09-01] VITALS (8 sets, daily range): BP systolic 108–118; BP diastolic 60–73; PULSE 72–106; TEMP 36.4–38.8; O2SAT 91–96
[2016-09-01] MEDS: NSS + 20MEQ KCL 1000ML 1,000 ML IV SCH ×2 (04:04→16:54)
[2016-09-01] MEDS: PIPERACILL/TAZOBAC IV 3.375 GM in DEXTROSE 5% 100ML 100 ML IV SCH ×3 (04:04→21:07)
[2016-09-01] MEDS: VANCOMYCIN INJ 1,000 MG in SODIUM CHLORIDE 0.9% 250ML 250 ML IV SCH ×2 (04:09→18:25)
[2016-09-01] MEDS: LEVOTHYROXINE 100 MCG TAB PO SCH (05:36)
[2016-09-01 06:41] LABS: BUN/CREATININE RATIO 16.1 (10-20); CREATININE 0.66 mg/dl (0.60-1.20); MAGNESIUM 1.7 mg/dl (1.8-2.4); PHOSPHORUS 1.7 mg/dl (2.5-4.9); POTASSIUM 4.1 mmol/L (3.5-5.1)
[2016-09-01 06:57] LABS: HEMATOCRIT 29.7 % (37-47); MEAN CELL VOLUME 86.8 fL (80-100); MEAN CORPUSCULAR HEMOGLOBIN 29.8 pg (25-34); MEAN CORPUSCULAR HGB CONC 34.3 g/dl (32-36); PLATELET COUNT 14 K/uL (130-400); RED BLOOD COUNT 3.42 M/uL (4.2-5.4); WHITE BLOOD COUNT 2.76 K/uL (4.8-10.8)
[2016-09-01 06:58] LABS: PLT ESTIMATE SIGNIFIC DECREASED
[2016-09-01] MEDS ORDERED: SODIUM PHOSPHATE 3 MMOL/1 ML INFUSION IV STA (07:20)
[2016-09-01] MEDS ORDERED: SODIUM PHOSPHATE INJ 24 MMOL in SODIUM CHLORIDE 0.9% 500ML 500 ML IV SCH (07:30)
[2016-09-01] MEDS: CHOLECALCIFEROL 1000 INTER.UNIT TAB PO SCH (07:39)
[2016-09-01] MEDS: ACETAMINOPHEN 325 MG TAB PO PRN ×2 (11:40→23:43)
--- NOTE | 2016-09-01 13:51 | Progress Note ---
Internal Med Progress Note Date of Service: September 01, 2016. Provider Documentation: SUBJECTIVE: The patient was seen and examined Has had Fever following Platelet transfusion Started on IV antibiotics Still having occasional fever No more confusion Wants to go home OBJECTIVE: Vital Signs-as noted below Exam: General-minimal distress at rest No more confusion Eyes-normal ENT-normal Neck-supple Lungs-occasional crackles bilaterally Heart-Regular,no murmur Abdomen-Benign,no masses,bowel sound present Extremities-trace edema bilaterally Neuro-AAox3 Lab data as noted below. ASSESSMENT & PLAN: Fever,chills with confusion Immediately after Platelet transfusion Could be secondary to transfusion reaction,Sepsis with neutropenia No focal neuro deficit to suggest any IC bleed-will monitor Blood cultures,CXR,Blood tests including Lactate and started on IV Zosyn and Vanco for sepsis Confusion Resolved Received another unit of Platelet without any problem 08/30/16 Continue current antibiotic for now Still having occasional fever with chills Has a lot of anxiety Try oral Ativan Progressive shortness of breath, -The causes could be related to chronic obstructive pulmonary disease of being a smoker in the past. -No evidence of any infiltration and/or effusion on x-ray, -No evidence of any overt congestive heart failure. -We will get echocardiograph to evaluate cardiac function. -ECHO:: * The left ventricle is normal in size. * The left ventricular wall motion is normal. * Ejection Fraction = >70 %. * Grade I diastolic dysfunction, (abnormal relaxation pattern). * There is mild tricuspid regurgitation. * Right ventricular systolic pressure is elevated at 40-50mmHg. -Nebulized Bronchodilators -Inhalers on discharge and OP Pulmonary appoint -remains moderate SOB at rest Electrolytes Imbalance Will supplement and re-supplement Recheck Chronic lymphocytic leukemia in the labs, has been getting chemotherapy monthly. Last chemo was on 12 of August. She does have pancytopenia with Platelet count of 21, as of today. Platelet 14 today Discussed with Oncology Will put Oncology consult with Dr Jordan Hypertension, has been on hydrochlorothiazide. Will hold for hypotension and give her a small amount of IV fluid. D/C IVF Hyperthyroidism. Continue with replacement. Gastrointestinal prophylaxis with Maalox, Mylanta. Deep venous thrombosis prophylaxis with sequential compression devices. No pharmacological anticoagulation due to low platelet. Code status -Full Discussed with the Daughter again Likely home in a day or two Vital Signs: Date Time Temp Pulse Resp B/P Pulse Ox O2 Delivery O2 Flow Rate FiO2 09/01/16 12:32 37.1 09/01/16 11:29 38.8 105 18 118/73 93 Room Air 09/01/16 11:18 Room Air 09/01/16 07:20 36.9 106 16 118/71 91 Room Air 09/01/16 05:42 36.4 09/01/16 04:41 37.6 103 19 114/67 92 Room Air 09/01/16 00:30 Room Air 09/01/16 00:11 36.9 72 16 108/61 93 Room Air 08/31/16 18:52 36.7 93 18 104/65 93 Room Air 08/31/16 17:20 36.7 93 16 113/68 95 2.0 08/31/16 16:00 Room Air Lab Results: Results Past 24 Hours Test 09/01/16 05:47 Range/Units White Blood Count 2.76 4.8-10.8 K/uL Red Blood Count 3.42 4.2-5.4 M/uL Hemoglobin 10.2 12.0-16.0 g/dL Hematocrit 29.7 37-47 % Mean Corpuscular Volume 86.8 80-100 fL Mean Corpuscular Hemoglobin 29.8 25-34 pg Mean Corpuscular Hemoglobin Concent 34.3 32-36 g/dl RDW Standard Deviation 56.4 36.4-46.3 fL RDW Coefficient of Variation 17.8 11.5-14.5 % Platelet Count 14 130-400 K/uL Platelet Estimate SIGNIFIC DECREASED Sodium Level 139 136-145 mmol/L Potassium Level 4.1 3.5-5.1 mmol/L Chloride Level 107 98-107 mmol/L Carbon Dioxide Level 22 21-32 mmol/L Anion Gap 10.0 3-11 mmol/L Blood Urea Nitrogen 11 7-18 mg/dl Creatinine 0.66 0.60-1.20 mg/dl Est Creatinine Clear Calc Drug Dose 66.3 ml/min Estimated GFR () 100.2 Estimated GFR (Non- 86.4 BUN/Creatinine Ratio 16.1 10-20 Random Glucose 85 70-99 mg/dl Calcium Level 7.0 8.5-10.1 mg/dl Phosphorus Level 1.7 2.5-4.9 mg/dl Magnesium Level 1.7 1.8-2.4 mg/dl
[2016-09-01] MEDS ORDERED: LORAZEPAM 0.5 MG TAB PO ONE (14:15)
[2016-09-02] VITALS (13 sets, daily range): BP systolic 98–156; BP diastolic 58–81; PULSE 72–122; TEMP 36.4–39.5; O2SAT 91–96
[2016-09-02] MEDS: PIPERACILL/TAZOBAC IV 3.375 GM in DEXTROSE 5% 100ML 100 ML IV SCH ×4 (04:20→19:54)
[2016-09-02] MEDS: NSS + 20MEQ KCL 1000ML 1,000 ML IV SCH ×2 (05:22→19:45)
[2016-09-02] MEDS: LEVOTHYROXINE 100 MCG TAB PO SCH (05:22)
[2016-09-02 07:07] LABS: URINE APPEARANCE CLEAR (CLEAR); URINE BILIRUBIN NEG (NEG); URINE COLOR YELLOW; URINE NITRITE NEG (NEG); URINE SPECIFIC GRAVITY 1.015 (1.000-1.030); UROBILINOGEN NEG (NEG); ZZUR CULT IF INDIC CLEAN CATCH NO
[2016-09-02 07:11] LABS: MANUAL MICROSCOPIC REQUIRED? NO; REVIEW REQ? NO
[2016-09-02] MEDS ORDERED: VANCOMYCIN TROUGH SCH (07:30)
[2016-09-02] MEDS: CHOLECALCIFEROL 1000 INTER.UNIT TAB PO SCH (07:48)
[2016-09-02] MEDS: VANCOMYCIN INJ 1,000 MG in SODIUM CHLORIDE 0.9% 250ML 250 ML IV SCH ×2 (08:58→21:53)
[2016-09-02 09:44] LABS: POTASSIUM 4.3 mmol/L (3.5-5.1)
[2016-09-02 09:45] LABS: MAGNESIUM 1.7 mg/dl (1.8-2.4)
[2016-09-02 09:49] LABS: BUN/CREATININE RATIO 13.5 (10-20); CALCIUM 7.4 mg/dl (8.5-10.1); CREATININE 0.72 mg/dl (0.60-1.20)
[2016-09-02 11:11] LABS: MEAN CELL VOLUME 86.1 fL (80-100); MEAN CORPUSCULAR HEMOGLOBIN 28.3 pg (25-34); MEAN CORPUSCULAR HGB CONC 32.9 g/dl (32-36); PLT ESTIMATE SIGNIFIC DECREASED; WHITE BLOOD COUNT 3.42 K/uL (4.8-10.8)
[2016-09-02] MEDS ORDERED: SODIUM PHOSPHATE 3 MMOL/1 ML INFUSION IV STA (11:19)
[2016-09-02 11:24] LABS: PLATELET COUNT 10 K/uL (130-400)
[2016-09-02] MEDS ORDERED: MAGNESIUM OXIDE 400 MG TAB PO ONE (12:00)
[2016-09-02] MEDS: ACETAMINOPHEN 325 MG TAB PO PRN (12:17)
--- NOTE | 2016-09-02 12:57 | Progress Note ---
Internal Med Progress Note Date of Service: September 02, 2016. Provider Documentation: SUBJECTIVE: The patient was seen and examined Has had Fever following Platelet transfusion Started on IV antibiotics Still having occasional fever No more confusion Wants to go home Remains reasonably stable today OBJECTIVE: Vital Signs-as noted below Exam: General-minimal distress at rest No more confusion Eyes-normal ENT-normal Neck-supple Lungs-occasional crackles bilaterally Heart-Regular,no murmur Abdomen-Benign,no masses,bowel sound present Extremities-trace edema bilaterally Neuro-AAox3 Lab data as noted below. ASSESSMENT & PLAN: Fever,chills with confusion Immediately after Platelet transfusion Could be secondary to transfusion reaction,Sepsis with neutropenia No focal neuro deficit to suggest any IC bleed-will monitor Started on IV Zosyn and Vanco for sepsis Confusion Resolved Received another unit of Platelet without any problem 08/30/16 Continue current antibiotic for now Blood cultures -negative Has a lot of anxiety Try oral Ativan prn -helping Progressive shortness of breath, -The causes could be related to chronic obstructive pulmonary disease of being a smoker in the past. -No evidence of any infiltration and/or effusion on x-ray, -No evidence of any overt congestive heart failure. -We will get echocardiograph to evaluate cardiac function. -ECHO:: * The left ventricle is normal in size. * The left ventricular wall motion is normal. * Ejection Fraction = >70 %. * Grade I diastolic dysfunction, (abnormal relaxation pattern). * There is mild tricuspid regurgitation. * Right ventricular systolic pressure is elevated at 40-50mmHg. -Nebulized Bronchodilators -Inhalers on discharge and OP Pulmonary appoint -remains moderate SOB at rest Electrolytes Imbalance Will supplement and re-supplement Recheck Pancytopenia with Thrombocytopenia Chronic lymphocytic leukemia in relapse, has been getting chemotherapy monthly. Last chemo was on 12 of August. She does have pancytopenia with Platelet count of 21 on admission Received 2 units of Platelet so far Will give another unit today ,count 10 Discussed with Oncology Will put Oncology consult with Dr Jordan Will talk to him if does not come to see her today Hypertension, has been on hydrochlorothiazide. Will hold for hypotension and give her a small amount of IV fluid. D/C IVF Hyperthyroidism. Continue with replacement. Gastrointestinal prophylaxis with Maalox, Mylanta. Deep venous thrombosis prophylaxis with sequential compression devices. No pharmacological anticoagulation due to low platelet. Code status -Full Discussed with the Daughter again Likely home in a day or two Vital Signs: Date Time Temp Pulse Resp B/P Pulse Ox O2 Delivery O2 Flow Rate FiO2 09/02/16 12:10 36.9 116 20 127/70 96 0.0 09/02/16 11:51 36.9 109 20 146/76 95 Nasal Cannula 2.0 09/02/16 09:54 Nasal Cannula 2.0 09/02/16 07:52 Room Air 09/02/16 07:48 36.8 84 20 101/58 95 Room Air 09/02/16 04:18 36.5 80 20 98/61 92 Room Air 09/02/16 00:06 39.5 113 20 106/58 91 Room Air 09/02/16 00:00 Room Air 09/01/16 19:23 36.7 99 20 112/60 96 Room Air 09/01/16 16:00 Room Air 09/01/16 15:07 36.8 91 16 113/66 96 Room Air Lab Results: Results Past 24 Hours Test 09/02/16 05:30 09/02/16 08:57 09/02/16 10:29 Range/Units Urine Color YELLOW Urine Appearance CLEAR CLEAR Urine pH 5.0 4.5-7.5 Urine Specific [place] 1.015 1.000-1.030 Urine Protein NEG NEG Urine Glucose (UA) NEG NEG Urine Ketones NEG NEG Urine Occult Blood NEG NEG Urine Nitrite NEG NEG Urine Bilirubin NEG NEG Urine Urobilinogen NEG NEG Urine Leukocyte Esterase NEG NEG Sodium Level 139 136-145 mmol/L Potassium Level 4.3 3.5-5.1 mmol/L Chloride Level 107 98-107 mmol/L Carbon Dioxide Level 23 21-32 mmol/L Anion Gap 9.0 3-11 mmol/L Blood Urea Nitrogen 10 7-18 mg/dl Creatinine 0.72 0.60-1.20 mg/dl Est Creatinine Clear Calc Drug Dose 60.7 ml/min Estimated GFR () 94.9 Estimated GFR (Non- 81.9 BUN/Creatinine Ratio 13.5 10-20 Random Glucose 89 70-99 mg/dl Calcium Level 7.4 8.5-10.1 mg/dl Phosphorus Level 2.0 2.5-4.9 mg/dl Magnesium Level 1.7 1.8-2.4 mg/dl Vancomycin Level Trough 13.1 SEE COMMENT mcg/ml White Blood Count 3.42 4.8-10.8 K/uL Red Blood Count 3.60 4.2-5.4 M/uL Hemoglobin 10.2 12.0-16.0 g/dL Hematocrit 31.0 37-47 % Mean Corpuscular Volume 86.1 80-100 fL Mean Corpuscular Hemoglobin 28.3 25-34 pg Mean Corpuscular Hemoglobin Concent 32.9 32-36 g/dl RDW Standard Deviation 55.7 36.4-46.3 fL RDW Coefficient of Variation 17.9 11.5-14.5 % Platelet Count 10 130-400 K/uL Mean Platelet Volume 7.4-10.4 fL Nucleated RBC Absolute Count (auto) 0.03 0-0 K/uL Nucleated Red Blood Cells % 0.7 % Platelet Estimate SIGNIFIC DECREASED
[2016-09-02] MEDS: SODIUM PHOSPHATE INJ 30 MMOL in SODIUM CHLORIDE 0.9% 500ML 500 ML IV ONE ×2 (13:18→14:14)
[2016-09-02] MEDS: DEXAMETHASONE 4 MG TAB PO SCH (13:19)
--- NOTE | 2016-09-02 15:18 | Pharmacy Progress Note ---
Pharmacy Abx Dose Short Note Date of Service September 02, 2016. Assessment & Plan Assessment 76 year old female receiving Vancomycin/Zosyn IV for treatment of fever in setting of neutropenia- unknown source. Day # 4 of antimicrobial therapy. Spoke with provider regarding ABX. OK to D/C tomorrow and continue at current frequency. Plan Vancomycin * Trough level of 13.1 mcg/mL is subtherapeutic BUT trough was drawn 1.5 hours late. I suspect trough to be closer to 15 mcg/mL. * Continue dose of 1000 mg IV every 14 hours X 24 hours and D/C 6/ @1500 unless changed by MD. * Goal trough level for unknown source of infection: ~15 mcg/mL * No further levels orders as antibiotics set to D/C tomorrow. Zosyn * Continue 3.375 g IV every 8 hours * Antibiotic will D/C 09/03 @1500 unless extended by MD. Pharmacy will continue to follow and will adjust dose/frequency as necessary. Thank you.
[2016-09-02] MEDS: MAGNESIUM OXIDE 400 MG TAB PO SCH (19:47)
[2016-09-03] VITALS (9 sets, daily range): BP systolic 86–117; BP diastolic 56–79; PULSE 74–97; TEMP 36.3–36.8; O2SAT 93–96
[2016-09-03] MEDS: PIPERACILL/TAZOBAC IV 3.375 GM in DEXTROSE 5% 100ML 100 ML IV SCH ×2 (03:43→11:39)
[2016-09-03] MEDS: LEVOTHYROXINE 100 MCG TAB PO SCH (06:41)
[2016-09-03 07:27] LABS: HEMATOCRIT 28.1 % (37-47); MEAN CELL VOLUME 85.2 fL (80-100); MEAN CORPUSCULAR HEMOGLOBIN 28.5 pg (25-34); MEAN CORPUSCULAR HGB CONC 33.5 g/dl (32-36); PLATELET COUNT 8 K/uL (130-400); PLT ESTIMATE SIGNIFIC DECREASED; WHITE BLOOD COUNT 3.94 K/uL (4.8-10.8)
[2016-09-03 07:28] LABS: CALCIUM 7.4 mg/dl (8.5-10.1); CREATININE 0.62 mg/dl (0.60-1.20); MAGNESIUM 1.8 mg/dl (1.8-2.4); POTASSIUM 4.4 mmol/L (3.5-5.1)
[2016-09-03 07:30] LABS: PHOSPHORUS 2.7 mg/dl (2.5-4.9)
[2016-09-03] MEDS: MAGNESIUM OXIDE 400 MG TAB PO SCH (08:06)
[2016-09-03] MEDS: CHOLECALCIFEROL 1000 INTER.UNIT TAB PO SCH (08:06)
[2016-09-03] MEDS: DEXAMETHASONE 4 MG TAB PO SCH (08:07)
[2016-09-03] MEDS ORDERED: NURSING VERBAL MED ORDER ONE (10:45)
[2016-09-03] MEDS: VANCOMYCIN INJ 1,000 MG in SODIUM CHLORIDE 0.9% 250ML 250 ML IV SCH (11:39)
--- NOTE | 2016-09-03 12:07 | HEMATOLOGY CONSULTATION ---
DATE OF CONSULTATION: 09/03/2016 DATE OF CONSULTATION: 09/03/2016. CONSULTATION WAS REQUESTED BY Dr. Tomlinson. REASON FOR CONSULTATION: Chronic lymphocytic leukemia on chemotherapy, shortness of breath. HISTORY OF PRESENT ILLNESS: Ms. Vargas is a 76-year-old woman whom I have followed and treated periodically for her CLL. Recently, her disease became much more aggressive and I restarted her on Rituxan and bendamustine chemotherapy. Throughout this course, she has been very weak, complaining of excessive dyspnea. Initially I thought her dyspnea was aggravated due to her mediastinal adenopathy. However, a recent CT scan of her chest showed a marked improvement in her adenopathy due to her recent chemotherapy administration. Of note, she does have a history of COPD and prior smoking. She is now admitted with progressive shortness of breath. Her initial CBCD on admission showed a white count of 3030 with 49% neutrophils, hemoglobin 11.4, and platelet count 21,000. During her hospitalization, her white count has improved, but her hemoglobin fell slightly and her platelet count fell to a low of 8,000 on 09/03/2016. She was transfused with 4 units of apheresis platelets. Yesterday I started her on pulse Decadron 20 mg daily for 4 days in a row to see if that would help increase her platelet count. For the time being, she will require prophylactic platelet transfusions of 1 unit of apheresis platelets as long as her platelet count is below 10,000. If her count rises above 10,000, platelet transfusion can be held unless she is actively bleeding. I will continue to follow along closely while she remains hospitalized. At this time, I see no reason for me to see her as I have nothing else to offer. She should be seen by pulmonary medicine to evaluate her dyspnea if not already ordered. MTDD
--- NOTE | 2016-09-03 12:59 | Clinical Documentation Query ---
CLINICAL DOCUMENTATION QUERY Query #1/2 76 year old female who presents to the Emergency Room with complaints of worsening shortness of breath. Presenting CXR was clear however after rehydration a repeat CXR done 08/30 showed right lower lung opacity which could reflect atelectasis or a mild infectious process. Patient was started on IV Vancomycin & IV Zosyn. In your clinical opinion is this patient being managed for: ( ) Suspected Gram Negative or Staphylococcal pneumonia in setting of immunocompromised condition. ( ) Present On Admission (POA) ( ) Acquired after admission ( ) Other explanation of clinical findings (Please Explain) ( ) Unable to determine (Please Define) ( ) Need to Discuss ( ) Not Agree The medical record reflects the following clinical findings, treatment, and risk factors. Clinical Indicators: As above. WBC 3.30, Treatment: IVF's with boluses, IV Vancomycin, IV Zosyn, Risk Factors: Age, chemotherapy, CLL Query #2/2 In your clinical opinion is this patient being managed for: ( ) Sepsis due to transfusion reaction ( ) Sepsis POA due to pneumonia ( ) Other explanation of clinical findings (Please Explain) ( ) Unable to determine (Please Define) ( ) Need to Discuss ( ) Not Agree The medical record reflects the following clinical findings, treatment, and risk factors. Clinical Indicators: Hypotensive on presentation 75/44 with tachycardia 118. Again hypotensive with initial platelet transfusion, but tolerated remaining platelets fine. WBC 3.30, Lactic acid done 08/30 was 3.7. Repeat CXR showed Minimal right lower lung opacity which could reflect atelectasis or a mild infectious process. Treatment: IV Vancomycin, IV Zosyn, IVF's with boluses. Risk Factors: Age, chemotherapy, CLL Please clarify and document your clinical opinion in the progress notes and discharge summary. Terms such as "probable", "suspected", "likely", "questionable", "possible", or "still to be ruled out" are acceptable. IF IN AGREEMENT, YOU MUST DOCUMENT ABOVE DIAGNOSTIC STATEMENT IN DAILY PROGRESS NOTES AND DISCHARGE SUMMARY. This document is not part of the patient's record. Thank You, Alejandro Barry, RN [phone]
--- NOTE | 2016-09-03 16:45 | Progress Note ---
Internal Med Progress Note Date of Service: Sep 03, 2016. Provider Documentation: SUBJECTIVE: The patient was seen and examined Has had Fever following Platelet transfusion Started on IV antibiotics No more fever and no more confusion NO more SOB and wants to go home OBJECTIVE: Vital Signs-as noted below Exam: General-minimal distress at rest No more confusion Eyes-normal ENT-normal Neck-supple Lungs-occasional crackles bilaterally Heart-Regular,no murmur Abdomen-Benign,no masses,bowel sound present Extremities-trace edema bilaterally Neuro-AAox3 Lab data as noted below. ASSESSMENT & PLAN: Fever,chills with confusion Immediately after Platelet transfusion Could be secondary to transfusion reaction,Sepsis with neutropenia No focal neuro deficit to suggest any IC bleed-will monitor Started on IV Zosyn and Vanco for sepsis Confusion Resolved Received another unit of Platelet without any problem 08/30/16 Continue current antibiotic for now Blood cultures -negativeX2 Has a lot of anxiety Try oral Ativan prn -helping No more fever and signs of infection Progressive shortness of breath, -The causes could be related to chronic obstructive pulmonary disease of being a smoker in the past. -No evidence of any infiltration and/or effusion on x-ray, -No evidence of any overt congestive heart failure. -We will get echocardiograph to evaluate cardiac function. -ECHO:: * The left ventricle is normal in size. * The left ventricular wall motion is normal. * Ejection Fraction = >70 %. * Grade I diastolic dysfunction, (abnormal relaxation pattern). * There is mild tricuspid regurgitation. * Right ventricular systolic pressure is elevated at 40-50mmHg. -Nebulized Bronchodilators -Inhalers on discharge and OP Pulmonary appoint -remains moderate SOB at rest -no more SOB and or wheezing Electrolytes Imbalance Will supplement and re-supplement Recheck-corrected Pancytopenia with Thrombocytopenia Chronic lymphocytic leukemia in relapse, has been getting chemotherapy monthly. Last chemo was on 12 of August. She does have pancytopenia with Platelet count of 21 on admission Received 2 units of Platelet so far Will give another unit today ,count 10 Discussed with Oncology Will put Oncology consult with Dr Jordan Will talk to him if does not come to see her today Discussed with Dr Jordan-can be discharged Hypertension, has been on hydrochlorothiazide. Will hold for hypotension and give her a small amount of IV fluid. D/C IVF Hyperthyroidism. Continue with replacement. Gastrointestinal prophylaxis with Maalox, Mylanta. Deep venous thrombosis prophylaxis with sequential compression devices. No pharmacological anticoagulation due to low platelet. Code status -Full Discussed with the Daughter again Likely home in a day or two Likely to discharge today if Platelet >10 Vital Signs: Date Time Temp Pulse Resp B/P (MAP) Pulse Ox O2 Delivery O2 Flow Rate FiO2 09/03/16 14:35 36.8 76 18 117/79 (92) 93 Room Air 09/03/16 10:30 36.3 85 18 107/68 09/03/16 09:30 36.5 91 20 108/57 09/03/16 09:15 36.4 94 18 107/70 09/03/16 09:00 36.7 97 18 89/56 09/03/16 08:51 36.7 97 18 86/56 09/03/16 07:56 36.4 89 18 107/64 (78) 95 Room Air 09/03/16 07:24 Room Air 09/03/16 04:23 36.3 74 20 101/60 (74) 96 Room Air 09/03/16 00:00 Room Air 09/02/16 23:55 36.4 72 18 110/63 (79) 96 Room Air 09/02/16 20:01 96 Nasal Cannula 2.0 09/02/16 19:46 36.4 84 20 107/64 (78) 94 Room Air Lab Results: Results Past 24 Hours Test 09/03/16 06:40 09/03/16 16:23 Range/Units White Blood Count 3.94 4.8-10.8 K/uL Red Blood Count 3.30 4.2-5.4 M/uL Hemoglobin 9.4 12.0-16.0 g/dL Hematocrit 28.1 37-47 % Mean Corpuscular Volume 85.2 80-100 fL Mean Corpuscular Hemoglobin 28.5 25-34 pg Mean Corpuscular Hemoglobin Concent 33.5 32-36 g/dl RDW Standard Deviation 54.8 36.4-46.3 fL RDW Coefficient of Variation 17.6 11.5-14.5 % Platelet Count 8 130-400 K/uL Nucleated RBC Absolute Count (auto) 0.02 0-0 K/uL Nucleated Red Blood Cells % 0.6 % Platelet Estimate SIGNIFIC DECREASED Sodium Level 141 136-145 mmol/L Potassium Level 4.4 3.5-5.1 mmol/L Chloride Level 109 98-107 mmol/L Carbon Dioxide Level 22 21-32 mmol/L Anion Gap 10.0 3-11 mmol/L Blood Urea Nitrogen 10 7-18 mg/dl Creatinine 0.62 0.60-1.20 mg/dl Est Creatinine Clear Calc Drug Dose 70.5 ml/min Estimated GFR () 102.2 Estimated GFR (Non- 88.2 BUN/Creatinine Ratio 16.0 10-20 Random Glucose 114 70-99 mg/dl Calcium Level 7.4 8.5-10.1 mg/dl Phosphorus Level 2.7 2.5-4.9 mg/dl Magnesium Level 1.8 1.8-2.4 mg/dl
[2016-09-03 16:56] LABS: PLATELET COUNT 12 K/uL (130-400)
[2016-09-03] MEDS ORDERED: LEVOFLOXACIN 500 MG TAB PO ONE (16:59)
[2016-09-03 17:17] LABS: HEMATOCRIT 28.1 % (37-47); MEAN CELL VOLUME 86.2 fL (80-100); MEAN CORPUSCULAR HEMOGLOBIN 29.1 pg (25-34); MEAN CORPUSCULAR HGB CONC 33.8 g/dl (32-36); RED BLOOD COUNT 3.26 M/uL (4.2-5.4); WHITE BLOOD COUNT 5.16 K/uL (4.8-10.8)
[2016-09-03 17:18] LABS: PLT ESTIMATE SIGNIFIC DECREASED
[2016-09-03] MEDS ORDERED: LCTX PO (17:28)
[2016-09-03] MEDS ORDERED: DXM4 PO (17:28)
[2016-09-03] MEDS ORDERED: LVQ500 PO (17:28)
[2016-09-03] MEDS ORDERED: PRVHFAIN INH (17:28)
--- NOTE | 2016-09-03 17:30 | Discharge Instructions ---
Discharge Instructions Date of Service Sep 03, 2016. Admission Reason for Admission: Cll (Chronic Lymphoid Leukemia) In Relapse, Discharge Discharge Diagnosis / Problem: SOB,Pancytopenia secondary to Chemo for CLL, Thrombocytopenia Discharge Goals Goal(s): Prevent Disease Progression Activity Recommendations Activity Limitations: resume your previous activity (Take it easy) . Instructions / Follow-Up Instructions / Follow-Up Dr Azevedo on 09/08/16 10:25AM.Dr Jordan's office will call with appointment.Will need a follow up with Pulmonary Current Hospital Diet Patient's current hospital diet: Regular Diet Discharge Diet Recommended Diet: Regular Diet Pending Studies Studies pending at discharge: no Medical Emergencies . Who to Call and When: Medical Emergencies: If at any time you feel your situation is an emergency, please call 911 immediately. . Non-Emergent Contact Non-Emergency issues call your: Primary Care Provider . Past History Medical & Surgical History: (1) Thrombocytopenia (2) CLL (chronic lymphoid leukemia) in relapse (3) SOBOE (shortness of breath on exertion) (4) Pancytopenia (5) Hypertension (6) History of hysterectomy . "Provider Documentation" section prepared by Thien Tomlinson. . VTE Core Measure Inpt VTE Proph given/why not?: SCD's
[2016-09-04] MEDS ORDERED: LEVOFLOXACIN 500 MG TAB PO SCH (11:00)
--- NOTE | 2016-09-04 12:53 | Discharge Summary ---
Discharge Summary Date of Service Sep 04, 2016. Discharge Summary Admission Date: September 02, 2016 at 14:16 Discharge Date: Sep 03, 2016 Discharge Disposition: Home Principal Diagnosis: SOB,Pancytopenia secondary to Chemo for CLL,Thrombocytopenia Secondary Diagnoses/Problems: Please see H&P and Hospital Progress note Consultations: Hematology Medication Reconciliation New Medications: Albuterol (Ventolin Hfa) 60 Puffs/5400 Mcg Aers 2 PUFF INH Q4H for SOB/Wheezing, #1 Lactobacillus Acidophilus (Lactinex) Tab 2 TAB PO BID17, #30 TAB Dexamethasone (Dexamethasone) 4 Mg Tab 20 MG PO DAILY for 2 Days, #10 TAB Levofloxacin (Levofloxacin) 500 Mg Tab 500 MG PO DAILY@11 for 5 Days, #5 TAB Continued Medications: Cholecalciferol (Vitamin D) 1,000 Unit Tab 1000 UNITS PO DAILY Hydrochlorothiazide (Hctz) 12.5 Mg Cap 12.5 MG PO DAILY, TAB Levothyroxine Sodium (Synthroid) 100 Mcg Tab 100 MCG PO DAILY, TAB Admission Information HPI (per Admitting provider): DATE OF ADMISSION: 08/28/2016 PRIMARY CARE PHYSICIAN: Dr. Azevedo. CHIEF COMPLAINT: Shortness of breath for the last 2 months. HISTORY OF PRESENT COMPLAINT: She is a 76-year-old female with significant past medical history including chronic lymphocytic leukemia, in relapse on monthly chemotherapy, chronic kidney disease stage III, thrombocytopenia, hypertension, hypothyroidism, apparently has been complaining of shortness of breath which has been ongoing for the last few months. The condition has gotten worse for the last few days and apparently she was seen by her primary care physician on for the same problem. She was advised to take oxygen, but the condition got worse and she was brought into the Emergency Room for further evaluation. She has had her chemo on 12 of August with Bend[place] and she has had blood test done on that showed a white count of 4.30, hemoglobin 12.8, hematocrit 37.5, and platelets 49. She also had a CAT scan done that was on 24 August and reported as improved lymphadenopathy in the chest and abdomen with the exception of an enlarging right hilar lymph node with possible post infection/inflammatory changes in the right lung. In the Emergency Room, she got better with treatment with albuterol and also she got some IV fluid. She denies to any fever, chills or rigors. No abdominal pain, nausea, vomiting, no swelling of the legs. No weight gain, no chest pain, palpitation, no problem with urine and/or bowel habit. No dizziness, no blurred vision, no numbness or tingling in the extremities. At ER, her lab works remained fairly unremarkable, but she was admitted to medical floor for continuation of care. PAST MEDICAL HISTORY: Significant for chronic lymphocytic leukemia, in relapse and with ongoing chemo; thrombocytopenia, chronic kidney disease stage III, hypothyroidism and hypertension. PAST SURGICAL HISTORY: Significant for total hysterectomy in 1983 secondary to fibroids. FAMILY HISTORY: Brother has heart disease status post PTCA; father had heart disease, CABGs at the age of 50s and at 82; sister has heart disease as well; mother had a stroke at the age of 82. SOCIAL HISTORY: She is a . She lives alone. She quit smoking years ago with a 10-year, 10-packet history of smoking, does not use any alcohol and she has been reasonably ambulant. ALLERGIES: NKDA. MEDICATIONS AN OUTPATIENT: She has been on hydrochlorothiazide 12.5 mg daily, vitamin D 1000 units daily, and levothyroxine 100 mcg daily. REVIEW OF SYSTEMS: Other systemic system review unremarkable except those mentioned in history of present complaint. PHYSICAL EXAMINATION: GENERAL: On examination, in the Emergency Room, she was not having any acute distress. VITAL SIGNS: Temperature 37.1, pulse was 93, blood pressure 92/42 and saturation 95% on room air. HEENT: Unremarkable. NECK: Supple. No JVD, no bruit. CHEST: Clear to auscultate bilaterally. HEART: S1, S2 regular, no murmur. ABDOMEN: Soft, benign, nontender, no organomegaly. Bowel sounds present. EXTREMITIES: 1+ edema bilaterally. MUSCULOSKELETAL SYSTEM: No acute arthritis involving any joint. CENTRAL NERVOUS SYSTEM: She was alert, awake, oriented x3 and no focal sensory and/or motor deficit appreciated. LABORATORY DATA: Noted today - white count was 3.30, H\\T\\H 11.4/32.1 and platelet was 21. Her counts are better on with a white count 4.30, H\\T\\H 12.8/37.5, platelets 49. Sodium 131, potassium 3.4, chloride 95, carbon dioxide 24, BUN 16, creatinine 0.88, random glucose 91. Calcium 7.8, total bilirubin 1.7, AST 68. Troponin less than 0.05. Albumin was 2.8. PT/INR unremarkable. Her INR 1.3. IMAGING DATA: Chest x-ray, negative chest. EKG was in sinus rhythm, a rate of 110 per minute, normal axis and a few atrial premature complexes. IMPRESSION AND PLAN: 1. Progressive shortness of breath, the causes could be related to chronic obstructive pulmonary disease of being a smoker in the past. No evidence of any infiltration and/or effusion on x-ray, no evidence of congestive heart failure. We will get echocardiograph to evaluate cardiac function. The patient improved with bronchodilator. We will give nebulized bronchodilator while in the hospital. Will need to see garment presser as an outpatient and no antibiotic at this time because no signs or symptoms of infection. 2. Chronic lymphocytic leukemia in the labs, has been getting chemotherapy monthly. Last chemo was on 12 of August. She does have pancytopenia with Platelet count of 21, as of today. Will observe that in the hospital. 3. Pancytopenia with thrombocytopenia, in part due to ongoing chemo. No transfusion until the Platelet count is count below 10 or any bleeding episodes. The case was discussed with independent contractor investigative research specialist. 4. Hypertension, has been on hydrochlorothiazide. Will hold for hypotension and give her a small amount of IV fluid. 5. Hyperthyroidism. Continue with replacement. 6. Gastrointestinal prophylaxis with Maalox, Mylanta. 7. Deep venous thrombosis prophylaxis with sequential compression devices. No pharmacological anticoagulation due to low platelet. 8. Code status - she will be a full code. In my clinical judgment, the beneficiary meets criteria as per CMS for 2-midnight stay in the hospital. Dictated: 08/28/16 1800 Transcribed: 08/28/161956 <Electronically signed by Thien Tomlinson M.D.> Signed: 08/29/16 0929 ES Thien Tomlinson M.D. Hospital Course CXR Possible Right Lower Lung Opacity May have developing Pneumonia Will continue Fever,chills with confusion Immediately after Platelet transfusion Could be secondary to transfusion reaction,Sepsis with neutropenia No focal neuro deficit to suggest any IC bleed-will monitor Started on IV Zosyn and Vanco for sepsis Confusion Resolved Received another unit of Platelet without any problem 08/30/16 Continue current antibiotic for now Blood cultures -negativeX2 Has a lot of anxiety Try oral Ativan prn -helping No more fever and signs of infection Progressive shortness of breath, -The causes could be related to chronic obstructive pulmonary disease of being a smoker in the past. -No evidence of any infiltration and/or effusion on x-ray, -No evidence of any overt congestive heart failure. -We will get echocardiograph to evaluate cardiac function. -ECHO:: * The left ventricle is normal in size. * The left ventricular wall motion is normal. * Ejection Fraction = >70 %. * Grade I diastolic dysfunction, (abnormal relaxation pattern). * There is mild tricuspid regurgitation. * Right ventricular systolic pressure is elevated at 40-50mmHg. -Nebulized Bronchodilators -Inhalers on discharge and OP Pulmonary appoint -remains moderate SOB at rest -no more SOB and or wheezing Electrolytes Imbalance Will supplement and re-supplement Recheck-corrected Pancytopenia with Thrombocytopenia Chronic lymphocytic leukemia in relapse, has been getting chemotherapy monthly. Last chemo was on 12 of August. She does have pancytopenia with Platelet count of 21 on admission Received 2 units of Platelet so far Will give another unit today ,count 10 Discussed with Oncology Will put Oncology consult with Dr Jordan Will talk to him if does not come to see her today Discussed with Dr Jordan-can be discharged Hypertension, has been on hydrochlorothiazide. Will hold for hypotension and give her a small amount of IV fluid. D/C IVF Hyperthyroidism. Continue with replacement. Gastrointestinal prophylaxis with Maalox, Mylanta. Deep venous thrombosis prophylaxis with sequential compression devices. No pharmacological anticoagulation due to low platelet. Code status -Full Discussed with the Daughter again Likely home in a day or two Likely to discharge today if Platelet >10 Total time spent on discharge = 35 minutes This includes examination of the patient, discharge planning, medication reconciliation, and communication with other providers. Discharge Instructions Date of Service Sep 03, 2016. Admission Reason for Admission: Cll (Chronic Lymphoid Leukemia) In Relapse, Discharge Discharge Diagnosis / Problem: SOB,Pancytopenia secondary to Chemo for CLL, Thrombocytopenia Discharge Goals Goal(s): Prevent Disease Progression Activity Recommendations Activity Limitations: resume your previous activity (Take it easy) . Instructions / Follow-Up Instructions / Follow-Up Dr Azevedo on 09/08/16 10:25AM.Dr Jordan's office will call with appointment.Will need a follow up with Pulmonary Current Hospital Diet Patient's current hospital diet: Regular Diet Discharge Diet Recommended Diet: Regular Diet Pending Studies Studies pending at discharge: no Medical Emergencies . Who to Call and When: Medical Emergencies: If at any time you feel your situation is an emergency, please call 911 immediately. . Non-Emergent Contact Non-Emergency issues call your: Primary Care Provider . Past History Medical & Surgical History: (1) Thrombocytopenia (2) CLL (chronic lymphoid leukemia) in relapse (3) SOBOE (shortness of breath on exertion) (4) Pancytopenia (5) Hypertension (6) History of hysterectomy . "Provider Documentation" section prepared by Thien Tomlinson. . VTE Core Measure Inpt VTE Proph given/why not?: SCD's <Electronically signed by Thien Tomlinson M.D.> Signed: 09/03/16 6949 Additional Copies To Laurita Azevedo M.D.
[2016-09-06] MEDS ORDERED: ACETAMINOPHEN 325 MG TAB PO ONE (17:15)
--- NOTE | 2016-09-07 10:15 | EDITING REQUIRED CODING QUERY ---
SEPSIS To promote full compliance with coding requirements relating to patient care, physician participation is requested in all cases of master plumber uncertainty. Please assist us with the question(s) below: In responding to this query, please exercise your independent professional judgement. The fact that a question is asked does not imply that any particular answer is desired or expected. We appreciate your clarification on this issue. Throughout the medical record, you have clearly documented a localized infection and your patient has clinical evidence of a generalized sepsis or severe sepsis. The term urosepsis is a nonspecific entity and is coded as an UTI. If the patient has sepsis, severe sepsis, from an urinary source or some other source, please clarify in your response below. The medical record reflects the following clinical findings: Patient admitted with shortness of breath- 2 months prior to admission. Progress note 08/30 documents chills, confusion with ? sepsis after platelet transfusion. Please check below the diagnosis you were treating, if appropriate. Thank you! Arie Hayes [facility] ( )Bacteremia (Nonspecific laboratory finding of bacteria in the blood) Specify Organism ( ) Present on Admission ( ) Not present on admission ( ) Unable to clinically determine ( ) Septicemia (Systemic disease associated with the presence of pathogenic microorganisms in the blood): Specify Organism ( ) Present on Admission ( ) Not present on admission ( ) Unable to clinically determine ( ) Sepsis Specify Organism Specify Associated Condition/Diagnosis ( ) Present on Admission ( ) Not present on admission ( ) Unable to clinically determine ( ) Severe Sepsis (Sepsis associated with acute organ dysfunction) Specify Organism Specify Associated Condition/Diagnosis ( ) Present on Admission ( ) Not present on admission ( ) Unable to clinically determine ( ) Septic Shock (Severe sepsis with acute circulatory failure, unexplained by other causes) ( ) Present on Admission () Not present on admission ( ) Unable to clinically determine (+ ) Other, patient has:Infective process likely due to Developing Pneumonia
== END 2016-09-03 18:50 | disposition home or self-care (01) | DRG 190 ==
LOC: ENRESERVTM → ENRESERVDT → C.EDB 13:37 → C.4E 17:48 → EDBEDREQ 17:54 → OBSVTOIN 09-02 14:16
PROVIDERS: ADMIT Internal Medicine; ATTEND Internal Medicine
DX: J44.0 Chronic obstructive pulmonary disease with (acute) lower respiratory infection (principal); J18.9 Pneumonia, unspecified organism; D61.811 Other drug-induced pancytopenia; C91.90 Lymphoid leukemia, unspecified not having achieved remission; T80.89XA Other complications following infusion, transfusion and therapeutic injection, initial encounter; E86.0 Dehydration; N18.3 Chronic kidney disease, stage 3 (moderate); I12.9 Hypertensive chronic kidney disease with stage 1 through stage 4 chronic kidney disease, or unspecified chronic kidney disease; Z87.891 Personal history of nicotine dependence; R50.9 Fever, unspecified; R41.0 Disorientation, unspecified; T45.1X5A Adverse effect of antineoplastic and immunosuppressive drugs, initial encounter; E05.90 Thyrotoxicosis, unspecified without thyrotoxic crisis or storm; Y92.009 Unspecified place in unspecified non-institutional (private) residence as the place of occurrence of the external cause; Y84.8 Other medical procedures as the cause of abnormal reaction of the patient, or of later complication, without mention of misadventure at the time of the procedure; Y92.239 Unspecified place in hospital as the place of occurrence of the external cause

== ENCOUNTER 2016-09-06 13:06 | Inpatient (IN) | payer OTHER ==
[~2016-09-06] VITALS: Ht 165.1 cm; Wt 72.9 kg
[~2016-09-06 13:06] MED LIST changes: +CHOL100010 PO; +DXM4 PO; -HYDC25 PO; +HYDR12.56 PO; +LCTX PO; +LEVO100T PO; +LVQ500 PO; -LVXUNK; +PRVHFAIN INH
--- NOTE | 2016-09-06 13:51 | EMERGENCY ROOM VISIT NOTE ---
History Report prepared by Linwood: Justyn Fam Under the Supervision of: Dr. Radha Lee D.O. First contact with patient: 13:18 Chief Complaint: SHORTNESS OF BREATH Stated Complaint: SOB Nursing Triage Summary: pt has LE edema and SOB was here in the hospital last week and got transfused and now has worsening SOB History of Present Illness The patient is a 76 year old female with a history of CLL who presents to the Emergency Room with gradually worsening shortness of breath. She becomes more short of breath with exertion. The breathing does not improve or worsen when she is laying down or sitting up. The patient has also been retaining fluid. The patient was admitted to the hospital last week and discharged three days ago. Per family, she weighed 115 when she came to the ED last week and increased to 150 by the time she was discharged from the hospital. The patient also had a low platelet count. The patient is not on a diuretic currently. The patient has not had any specific fevers but the daughter states that the patient felt warm to touch. The patient denies vomiting, diarrhea, or urinary symptoms. Source of History: patient, family Onset: Since being disharged from the hospital three days ago Position: other (respiratory) Quality: other (short of breath) Timing: worsening Modifying Factors (Worsening): exertion Associated Symptoms: No vomiting, No diarrhea, No urinary symptoms Note: + lower extremity swelling Review of Systems See HPI for pertinent positives & negatives. A total of 10 systems reviewed and were otherwise negative. Past Medical & Surgical Medical Problems: (1) Anemia (2) Chronic lymphocytic leukemia (3) CKD (chronic kidney disease), stage III (4) CLL (chronic lymphoid leukemia) in relapse (5) HTN (hypertension) (6) Hypertension (7) Hypothyroidism (8) Lymphoma (9) Pancytopenia (10) SOB (shortness of breath) (11) SOBOE (shortness of breath on exertion) (12) Thrombocytopenia Surgical Problems: (1) History of hysterectomy Family History Cancer Heart disease Hypertension Social History Smoking Status: Former Smoker Marital Status: Current/Historical Medications Scheduled Albuterol (Ventolin Hfa), 2 PUFF INH Q4H Cholecalciferol (Vitamin D), 1,000 UNITS PO DAILY Hydrochlorothiazide (Hctz), 12.5 MG PO DAILY Lactobacillus Acidophilus (Lactinex), 2 TAB PO BID17 Levofloxacin (Levofloxacin), 500 MG PO DAILY@11 Levothyroxine Sodium (Synthroid), 100 MCG PO DAILY Allergies Coded Allergies: No Known Allergies (Unverified , 08/28/16) Physical Exam Vital Signs Date Time Temp Pulse Resp B/P (MAP) Pulse Ox O2 Delivery O2 Flow Rate FiO2 09/06/16 18:49 37.2 118 20 103/54 95 2.0 09/06/16 18:32 37.0 120 20 95 2.0 09/06/16 18:20 114 09/06/16 18:07 117 97 Nasal Cannula 2.0 09/06/16 17:43 92 Room Air 09/06/16 15:47 121 22 123/72 92 Room Air 09/06/16 13:46 96 Room Air 09/06/16 13:44 121 09/06/16 13:10 37.4 85 22 111/62 96 Physical Exam GENERAL: alert, well appearing, well nourished, no distress, non-toxic EYE EXAM: normal conjunctiva. OROPHARYNX: no exudate, no erythema, lips, buccal mucosa, and tongue normal and mucous membranes are moist NECK: supple, no nuchal rigidity, no adenopathy, non-tender LUNGS: Mildly decreased breath sounds bilaterally, no wheezes rales or rhonchi. Normal chest wall mechanics HEART: no murmurs, S1 normal and S2 normal ABDOMEN: abdomen soft, non-tender. BACK: Back is symmetrical on inspection and there is no deformity, no midline tenderness, no CVA tenderness. SKIN: no rashes, bruising noted on b/l arms consistent with recent IV's. EXTREMITIES: Edema of all 4 extremities with petechiae. Multiple areas of bruising consistent with recent IVs and blood pressure cuffs. Neurovascularly intact. NEURO EXAM: Normal sensorium, cranial nerves II-XII grossly intact, normal speech, no gross weakness of arms, no gross weakness of legs. Gross sensation intact. Medical Decision & Procedures ER Provider Diagnostic Interpretation: Radiology results have been interpreted by the radiologist and reviewed by me. SINGLE VIEW CHEST CLINICAL HISTORY: Dyspnea. FINDINGS: An AP, portable, upright chest radiograph is compared to study dated 08/30/2016. Correlation is made with chest CT dated 08/24/2016. The examination is degraded by portable technique and patient rotation. The cardiomediastinal silhouette is unremarkable. Chronic interstitial thickening is similar to previous. The lungs and pleural spaces are otherwise clear. No pneumothorax is seen. The skeletal structures are osteopenic. The bony thorax is grossly intact. Degenerative change and scoliosis are noted in the thoracic spine. IMPRESSION: No acute cardiopulmonary abnormality. Electronically signed by: Mehdi Nicolas M.D. 09/06/2016 2:12 PM Dictated Date/Time: 09/06/2016 2:11 PM Laboratory Results Test 09/06/16 15:35 Microcytosis PRESENT Prothrombin Time 13.4 SECONDS (9.0-12.0) Prothromb Time International Ratio 1.2 (0.9-1.1) Troponin I 0.017 ng/ml (0-0.045) Pro-B-Type Natriuretic Peptide 1409 pg/ml (0-900) 25-Hydroxy Vitamin D Total 11.1 ng/ml (30-100) Thyroid Stimulating Hormone (TSH) 4.260 uIu/ml (0.300-4.500) Laboratory results per my review. Medications Administered Medications (Trade) Dose Ordered Sig/Shiela Route Start Time Stop Time Status Last Admin Dose Admin Acetaminophen (Tylenol Tab) 650 mg ONE ONCE PO 09/06/16 17:30 09/06/16 17:34 DC 09/06/16 18:01 650 MG Diphenhydramine HCl (Benadryl Cap) 25 mg ONE ONCE PO 09/06/16 17:30 09/06/16 17:34 DC 09/06/16 18:02 25 MG ECG Indication: SOB/dyspnea Rate (beats per minute): 121 Rhythm: sinus tachycardia Findings: other (normal axis, normal intervals, low voltage) ED Course 1342: The patient was evaluated in room B8. A complete history and physical exam was performed. 1520: Bedside US performed to draw blood from the patient. 1640: Updated the patient. 1645: NSS 1000 ml @ 125 mls/hr. 1657: Discussed the case with Dr. Lan, [facility] Hospitalist. The patient will be evaluated. 1700: Platelet consent signed. Medical Decision Differential diagnoses includes but is not limited to pneumonia, bronchitis, COPD/Asthma exacerbation, pneumothorax, pulmonary embolism, congestive heart failure, acute coronary syndrome Blood pressure screening: Patient was found to have normal blood pressure on screening and does not require follow-up. Medication Reconciliation: I attest that I have personally reviewed the patient' s current medication list. Pt with worsening STEPHENSON and edema since DC 3 days prior. Known interstitial lung dz, recent echo reassuring, no current use of diuretics. Pt denies any other symptoms. Pt just given platelet transfusion during last admission, last count 12 at ID. Today found to be 3, other WBC/RBC stable compared to prior with chronic pancytopenia. Renal function normal. No fevers. Pt with no hypoxia. Initially no tachycardia, some then following multiple IV attempts, but improving. Platelets ordered and transfusion started in ER. Pt aware of all results and need for readmission. BP stable. Doubt CHF, effusion/pneumonia. Doubt bacteremia/sepsis. Doubt PE - recent evaluation negative and sx only with exertion, no hypoxia in ED. Pt denies any overt bleeding or seeing blood in urine/stool. Consults Time Called: 1649 Consulting Physician: Dr. Lan [facility] Hospitalist Returned Call: [phone] The patient will be evaluated. Impression Primary Impression: Dyspnea Additional Impressions: Pancytopenia Edema Chronic lymphocytic leukemia Critical Care I have personally spent 35 minutes of critical care time in the direct management of this patient. This includes bedside care, interpretation of diagnostic studies, and testing, discussion with consultants, patient, and family members, and other required patient management activities. This 35 minutes is in excess of all separately billable procedures. Scribe Attestation The scribe's documentation has been prepared under my direction and personally reviewed by me in its entirety. I confirm that the note above accurately reflects all work, treatment, procedures, and medical decision making performed by me. Departure Information Dispostion Being Evaluated By Hospitalist Referrals Laurita Azevedo M.D. (PCP) Patient Instructions My [facility] Problem Qualifiers Primary Impression: Dyspnea Dyspnea type: dyspnea on exertion Qualified Codes: R06.09 - Other forms of dyspnea Additional Impressions: Edema Edema type: unspecified Qualified Codes: R60.9 - Edema, unspecified
--- NOTE | 2016-09-06 14:13 | DIAGNOSTIC IMAGING REPORT ---
SINGLE VIEW CHEST CLINICAL HISTORY: Dyspnea. FINDINGS: An AP, portable, upright chest radiograph is compared to study dated 08/30/2016. Correlation is made with chest CT dated 08/24/2016. The examination is degraded by portable technique and patient rotation. The cardiomediastinal silhouette is unremarkable. Chronic interstitial thickening is similar to previous. The lungs and pleural spaces are otherwise clear. No pneumothorax is seen. The skeletal structures are osteopenic. The bony thorax is grossly intact. Degenerative change and scoliosis are noted in the thoracic spine. IMPRESSION: No acute cardiopulmonary abnormality. Electronically signed by: Mehdi Nicolas M.D. 09/06/2016 2:12 PM Dictated Date/Time: 09/06/2016 2:11 PM
[2016-09-06 16:02] LABS: URINE APPEARANCE CLEAR (CLEAR); URINE BILIRUBIN NEG (NEG); URINE COLOR YELLOW; URINE NITRITE NEG (NEG); URINE SPECIFIC GRAVITY 1.018 (1.000-1.030); UROBILINOGEN NEG (NEG); ZZUR CULT IF INDIC CLEAN CATCH NO
[2016-09-06 16:03] LABS: MANUAL MICROSCOPIC REQUIRED? NO; REVIEW REQ? NO
[2016-09-06 16:18] LABS: ALT/SGPT 19 U/L (12-78); AST/SGOT 89 U/L (15-37); BLOOD UREA NITROGEN 22 mg/dl (7-18); BUN/CREATININE RATIO 21.8 (10-20); CALCIUM 7.9 mg/dl (8.5-10.1); CARBON DIOXIDE 21 mmol/L (21-32); CHLORIDE 105 mmol/L (98-107); GLUCOSE 82 mg/dl (70-99); POTASSIUM 4.1 mmol/L (3.5-5.1); SODIUM 139 mmol/L (136-145)
[2016-09-06 16:23] LABS: ALB/GLOB RATIO 1.2 (0.9-2); ALKALINE PHOSPHATASE 115 U/L (45-117)
[2016-09-06 16:26] LABS: HEMATOCRIT 28.1 % (37-47); MEAN CELL VOLUME 86.7 fL (80-100); MEAN CORPUSCULAR HGB CONC 33.5 g/dl (32-36); PLATELET COUNT 3 K/uL (130-400); RED BLOOD COUNT 3.24 M/uL (4.2-5.4); WHITE BLOOD COUNT 3.32 K/uL (4.8-10.8)
[2016-09-06 16:41] LABS: ANISOCYTOSIS PRESENT; MICROCYTOSIS PRESENT; SMUDGE CELLS PRESENT; TOXIC GRANULATION 1+; VACUOLIZATION 1+
[2016-09-06 16:45] LABS: COMPLETE YES
[2016-09-06] MEDS ORDERED: SODIUM CHLORIDE 0.9% 1000ML 1,000 ML IV STA (16:45)
[2016-09-06] MEDS ORDERED: ACETAMINOPHEN 325 MG TAB PO ONE (17:30)
[2016-09-06 17:43] VITALS: O2SAT 92; Ht 165.1 cm; Wt 72.9 kg
[2016-09-06 18:32] VITALS: PULSE 120; TEMP 37; O2SAT 95
[2016-09-06 18:49] VITALS: BP 103/54; PULSE 118; TEMP 37.2; O2SAT 95
[2016-09-06] MEDS ORDERED: POLYETHYLENE (MIRALAX) 17 GM PACK PO PRN (19:15)
--- NOTE | 2016-09-06 19:37 | History and Physical ---
History & Physical Date & Time of Service: Sep 06, 2016 at 19:25 Chief Complaint: SOB Primary Care Physician: Laurita Azevedo M.D. History of Present Illness Source: patient, family, clinic records, hospital records 76 yo F with CLL on chemo, last treatment was August 12, who presents with worsening shortness of breath and weight gain with swelling of lower extremities at home. She was recently discharged from the hospital last week and states that she was short of breath with swelling at that time, but had felt improved. She was discharged on levaquin for suspected pneumonia that was seen on CXR and some steroids. She doesn't typically require oxygen and is requiring 2L at this time. She denies any cough, fevers, chills, nausea, vomiting, diarrhea, blood in stool. She denies any pain or new LAD or nodules anywhere. Daughter is at bedside and states that her mother has been very fatigued for the past two months and mostly sleeps all day. Her weight has fluctuated where she was around 150lbs early last year, then most recently in the clinic was noted to be 114lb on 08/24/16. Today, on 09/06/16, her weight is 150lbs. She did have a CT scan in June 2016 that revealed new extensive retroperitoneal and mesenteric LAD. In the ER, she is oxygenating well on 2L via NC. Workup reveals a respiratory alkalosis with metabolic compensation. CXR does not reveal a pneumonia as before, and she was give IVF. Past Medical/Surgical History Medical Problems: (1) Anemia Status: Chronic (2) Chronic lymphocytic leukemia Status: Chronic (3) CKD (chronic kidney disease), stage III Status: Chronic (4) HTN (hypertension) Status: Chronic (5) Hypertension Status: Chronic (6) Hypothyroidism Status: Chronic (7) Lymphoma Status: Chronic (8) Thrombocytopenia Status: Chronic Surgical Problems: (1) History of hysterectomy Status: Chronic Family History Cancer Heart disease Hypertension Social History Smoking Status: Former Smoker Smokeless Tobacco Use: No Drug Use: none Housing status: lives alone Occupational Status: retired Immunizations History of Influenza Vaccine: Yes Influenza Vaccine Date: Feb 25, 2016 History of Tetanus Vaccine?: Yes Tetanus Immunization Date: Apr 17, 2013 History of Pneumococcal: Yes Pneumococcal Date: May 29, 2014 History of Hepatitis B Vaccine: No Multi-Drug Resistant Organisms History of MDRO: No Allergies Coded Allergies: No Known Allergies (Unverified , 08/28/16) Home Medications Scheduled Albuterol (Ventolin Hfa), 2 PUFF INH Q4H Cholecalciferol (Vitamin D), 1,000 UNITS PO DAILY Hydrochlorothiazide (Hctz), 12.5 MG PO DAILY Lactobacillus Acidophilus (Lactinex), 2 TAB PO BID17 Levofloxacin (Levofloxacin), 500 MG PO DAILY@11 Levothyroxine Sodium (Synthroid), 100 MCG PO DAILY Review of Systems Ten systems were reviewed and negative except as indicated in HPI. Physical Exam Vital Signs Date Time Temp Pulse Resp B/P (MAP) Pulse Ox O2 Delivery O2 Flow Rate FiO2 09/06/16 18:49 37.2 118 20 103/54 95 2.0 09/06/16 18:32 37.0 120 20 95 2.0 09/06/16 18:20 114 09/06/16 18:07 117 97 Nasal Cannula 2.0 09/06/16 17:43 92 Room Air 09/06/16 15:47 121 22 123/72 92 Room Air 09/06/16 13:46 96 Room Air 09/06/16 13:44 121 09/06/16 13:10 37.4 85 22 111/62 96 GEN: WNWD, in no acute distress, alert and appropriate but falls asleep easily. Appears pale and very fatigued. No increased work of breathing on 2L NC. HEENT: NC/AT, PERRL, normal sclerae, conjunctival hemorrhage in R eye was noted. MMM, Posterior pharyngeal whitish exudate noted all throughout the posterior pharynx, no cervical LAD CARDIO: reg rate, S1/2 heard without m/g/r LUNGS: CTA bilaterally, no crackles, rales or wheezes, good diaphragmatic excursion ABD: soft, non-tender, non-distended, no rebound or guarding, +BS EXTREMITY: RP and DP palpable 2+ bilat, warm and well-perfused. She has 3+ pitting edema on bother legs up past her knees and some abdominal swelling. She has petechiae on the lower extremities and significant ecchymosis on the LUE posteriorly. NEURO: Limited exam 2/2 significant fatigue, CN 2-12 grossly intact, mentating well MUSC: 5/5 strength throughout, however, she is moving very slowly around in the bed as it appears to take a large amount of energy to move. SKIN: warm and dry and changes as above. Diagnostics Laboratory Results Results Past 24 Hours Test 09/06/16 15:35 09/06/16 15:50 09/06/16 15:55 09/06/16 19:19 Range/Units White Blood Count 3.32 4.8-10.8 K/uL Red Blood Count 3.24 4.2-5.4 M/uL Hemoglobin 9.4 12.0-16.0 g/dL Hematocrit 28.1 37-47 % Mean Corpuscular Volume 86.7 80-100 fL Mean Corpuscular Hemoglobin 29.0 25-34 pg Mean Corpuscular Hemoglobin Concent 33.5 32-36 g/dl Platelet Count 3 130-400 K/uL RDW Standard Deviation 56.5 36.4-46.3 fL RDW Coefficient of Variation 18.3 11.5-14.5 % Nucleated RBC Absolute Count (auto) 0.11 0-0 K/uL Neutrophils % (Manual) 72.0 % Lymphocytes % (Manual) 24.0 % Monocytes % (Manual) 2.0 % Myelocytes % 2.0 % Nucleated Red Blood Cells % 3.2 % Neutrophils # (Manual) 2.39 1.4-6.5 K/uL Total Absolute Neutrophils 2.39 1.4-6.5 K/uL Lymphocytes # (Manual) 0.80 1.2-3.4 K/uL Total Absolute Lymphocytes 0.80 1.2-3.4 K/uL Monocytes # (Manual) 0.07 0.11-0.59 K/uL Myelocytes # 0.07 0-0 K/uL Smudge Cells PRESENT Toxic Granulation 1+ Toxic Vacuolation 1+ Anisocytosis PRESENT Microcytosis PRESENT Sodium Level 139 136-145 mmol/L Potassium Level 4.1 3.5-5.1 mmol/L Chloride Level 105 98-107 mmol/L Carbon Dioxide Level 21 21-32 mmol/L Anion Gap 13.0 3-11 mmol/L Blood Urea Nitrogen 22 7-18 mg/dl Creatinine 1.00 0.60-1.20 mg/dl Estimated GFR () 63.8 Estimated GFR (Non- 55.1 BUN/Creatinine Ratio 21.8 10-20 Random Glucose 82 70-99 mg/dl Calcium Level 7.9 8.5-10.1 mg/dl Total Bilirubin 0.9 0.2-1 mg/dl Aspartate Amino Transf (AST/SGOT) 89 15-37 U/L Alanine Aminotransferase (ALT/SGPT) 19 12-78 U/L Alkaline Phosphatase 115 45-117 U/L Troponin I 0.017 0-0.045 ng/ml Pro-B-Type Natriuretic Peptide 1409 0-900 pg/ml Total Protein 4.3 6.4-8.2 gm/dl Albumin 2.3 3.4-5.0 gm/dl Globulin 2.0 2.5-4.0 gm/dl Albumin/Globulin Ratio 1.2 0.9-2 Urine Color YELLOW Urine Appearance CLEAR CLEAR Urine pH 5.0 4.5-7.5 Urine Specific [place] 1.018 1.000-1.030 Urine Protein NEG NEG Urine Glucose (UA) NEG NEG Urine Ketones NEG NEG Urine Occult Blood NEG NEG Urine Nitrite NEG NEG Urine Bilirubin NEG NEG Urine Urobilinogen NEG NEG Urine Leukocyte Esterase NEG NEG Lactic Acid Level 6.0 0.4-2.0 mmol/L Diagnostic Radiology SINGLE VIEW CHEST CLINICAL HISTORY: Dyspnea. FINDINGS: An AP, portable, upright chest radiograph is compared to study dated 08/30/2016. Correlation is made with chest CT dated 08/24/2016. The examination is degraded by portable technique and patient rotation. The cardiomediastinal silhouette is unremarkable. Chronic interstitial thickening is similar to previous. The lungs and pleural spaces are otherwise clear. No pneumothorax is seen. The skeletal structures are osteopenic. The bony thorax is grossly intact. Degenerative change and scoliosis are noted in the thoracic spine. IMPRESSION: No acute cardiopulmonary abnormality. EKG ST 121. Impression Assessment and Plan 76 yo F with CLL who was recently discharged after treatment for pneumonia and lower platelets who presents with new hypoxia and significant thrombocytopenia 1. SOB with Hypoxia-pt is now hypoxic, in setting of malignancy and other clinical findings (tachycardia, worsened fatigue, resp alkalosis), concern for PE. CTA chest ordered to rule this out. ABG reveals respiratory alkalosis with appropriate metabolic compensation. Other etiologies include but are not limited to anxiety and CONFERENCE CONCIERGE stimulation from brain mass or CVA (less likely with out focal deficits, however, she is very fatigued so will order CT head to rule out). Also, this could be symptomatic anemia. Cont oxygen support--do not think this is a primary lung condition although that is possible. With h/o CLL that had progressed in June, I have concern for further progression despite chemo that may be causing lymph node obstruction. I have ordered a repeat CT a/ p with IV and PO contrast to re-evaluate this now. Oncology (Dr. Hernandez) is aware of the patient. 2. Edema- this appears less likely from hypervolemia and more from possible obstruction of circulation. Fluid status is difficult to determine with all the swelling but she has been eating and drinking well and there are clear lungs on exam with no signs of heart failure in the setting of a normal TTE last week. Initially considered consulting Nephro for acute fluid overload, however, will await repeat CT above and rule out LN obstruction first. TEDs in place. 3. Anemia -multifactorial, chronically low 2/2 bone marrow suppression from chemo and malignancy. Also recently phlebotomized frequently in hospital. No active bleeding at this time. Repeat H/H 10/23, so will transfuse 2 Units LR irradiated blood. 4. Thrombocytopenia-gave PLT transfusion in ER, repeat CBC 1 hr after tx, consult Heme (Dr. Hernandez aware)--Repeat PLT count came back at 11. Will give another platelet transfusion now. 5. Fatigue-25OH checked and she is deficient, TSH, B12, Folate 6. Thrush found on exam-fluconazole started, sputum culture ordered. 7. CKDIII-at baseline 8. CLL-denies constitutional symptoms, last chemo was August 12. Management per Oncology 9. Hypothyroidism-TSH was normal, fatigue likely 2/2 other causes. Cont current dose Synthroid. DVT proph-TEDs, otherwise contraindicated FULL CODE per patient with daughter present, discussed on admission Dispo-to telemetry Tiffani Lan DO [facility] Level of Care Telemetry Advanced Directives Existing Living Will: No Existing Power of Engineering Design Supervisor: No Resuscitation Status FULL RESUSCITATION VTE Prophylaxis VTE Risk Assessment Done? Y/N: Yes Risk Level: High Given or contraindicated: T.E.D. Stockings, Contraindicated
[2016-09-06 19:45] VITALS: PULSE 102; TEMP 37.2; O2SAT 96
[2016-09-06 19:57] LABS: INR 1.2 (0.9-1.1); PROTHROMBIN TIME (PATIENT) 13.4 SECONDS (9.0-12.0)
[2016-09-06 20:05] LABS: ARTERIAL BLD GAS O2 SATURATION 98.2 % (90-95); ARTERIAL BLOOD GAS BASE EXCESS -2.2 mEq/L (-9-1.8); ARTERIAL BLOOD GAS HCO3 21 mmol/L (19-24); ARTERIAL BLOOD GAS PO2 152 mm/Hg (80-95); ARTERIAL BLOOD GAS pH 7.48 (7.35-7.45)
[2016-09-06 20:09] LABS: ALLEN TEST POS (POS); O2 ADMINISTRATION 2L
[2016-09-06 20:47] VITALS: BP 100/51; PULSE 91; TEMP 36.9; O2SAT 97
[2016-09-06] MEDS ORDERED: FLUCONAZOLE SUSP 40 MG/ML 35 ML PO STA (21:18)
[2016-09-06 21:30] VITALS: BP 96/57; PULSE 91; TEMP 36.6
[2016-09-06 22:44] LABS: MEAN CELL VOLUME 85.7 fL (80-100); MEAN CORPUSCULAR HEMOGLOBIN 29.4 pg (25-34); MEAN CORPUSCULAR HGB CONC 34.3 g/dl (32-36); MEAN PLATELET VOLUME 8.4 fL (7.4-10.4); PLATELET COUNT 11 K/uL (130-400); RED BLOOD COUNT 2.45 M/uL (4.2-5.4); WHITE BLOOD COUNT 3.15 K/uL (4.8-10.8)
[2016-09-06] MEDS: ERGOCALCIFEROL 50,000 INTER.UNIT CAP PO SCH (23:26)
[2016-09-06] MEDS ORDERED: ACETAMINOPHEN 325 MG TAB PO STA (23:53)
[2016-09-07] VITALS (10 sets, daily range): BP systolic 101–131; BP diastolic 61–73; PULSE 82–123; TEMP 36.3–37.9; O2SAT 90–100
[2016-09-07] MEDS ORDERED: OPTIRAY 320 IV PRN (00:15)
--- NOTE | 2016-09-07 02:19 | Progress Note ---
Internal Med Progress Note Date of Service: Sep 07, 2016. Provider Documentation: Made aware by RN of lack if IV access precluding IV dye studies and blood product transfusion. VQ scan to ro PE instead of CT PE study (IV access does not have to be gauge 18) . PICC line consult in AM. Will relay to AM provider. Vital Signs: Date Time Temp Pulse Resp B/P (MAP) Pulse Ox O2 Delivery O2 Flow Rate FiO2 09/07/16 06:53 36.9 115 26 101/61 (74) 90 Room Air 09/07/16 04:52 36.5 121 18 123/70 (87) 91 Room Air 09/07/16 04:00 Room Air 09/07/16 00:00 36.3 93 18 123/73 (90) 100 Nasal Cannula 09/07/16 00:00 Room Air 09/06/16 21:30 36.6 91 20 96/57 Room Air 09/06/16 20:56 96 20 100/51 97 09/06/16 20:47 36.9 91 20 100/51 97 2.0 09/06/16 19:45 37.2 102 96 2.0 09/06/16 18:49 37.2 118 20 103/54 95 2.0 09/06/16 18:32 37.0 120 20 95 2.0 09/06/16 18:20 114 09/06/16 18:07 117 97 Nasal Cannula 2.0 09/06/16 17:43 92 Room Air 09/06/16 15:47 121 22 123/72 92 Room Air 09/06/16 13:46 96 Room Air 09/06/16 13:44 121 09/06/16 13:10 37.4 85 22 111/62 96 Lab Results: Results Past 24 Hours Test 09/06/16 15:35 09/06/16 15:50 09/06/16 15:55 09/06/16 19:55 Range/Units White Blood Count 3.32 4.8-10.8 K/uL Red Blood Count 3.24 4.2-5.4 M/uL Hemoglobin 9.4 12.0-16.0 g/dL Hematocrit 28.1 37-47 % Mean Corpuscular Volume 86.7 80-100 fL Mean Corpuscular Hemoglobin 29.0 25-34 pg Mean Corpuscular Hemoglobin Concent 33.5 32-36 g/dl Platelet Count 3 130-400 K/uL RDW Standard Deviation 56.5 36.4-46.3 fL RDW Coefficient of Variation 18.3 11.5-14.5 % Nucleated RBC Absolute Count (auto) 0.11 0-0 K/uL Neutrophils % (Manual) 72.0 % Lymphocytes % (Manual) 24.0 % Monocytes % (Manual) 2.0 % Myelocytes % 2.0 % Nucleated Red Blood Cells % 3.2 % Neutrophils # (Manual) 2.39 1.4-6.5 K/uL Total Absolute Neutrophils 2.39 1.4-6.5 K/uL Lymphocytes # (Manual) 0.80 1.2-3.4 K/uL Total Absolute Lymphocytes 0.80 1.2-3.4 K/uL Monocytes # (Manual) 0.07 0.11-0.59 K/uL Myelocytes # 0.07 0-0 K/uL Smudge Cells PRESENT Toxic Granulation 1+ Toxic Vacuolation 1+ Anisocytosis PRESENT Microcytosis PRESENT Prothrombin Time 13.4 9.0-12.0 SECONDS Prothromb Time International Ratio 1.2 0.9-1.1 Sodium Level 139 136-145 mmol/L Potassium Level 4.1 3.5-5.1 mmol/L Chloride Level 105 98-107 mmol/L Carbon Dioxide Level 21 21-32 mmol/L Anion Gap 13.0 3-11 mmol/L Blood Urea Nitrogen 22 7-18 mg/dl Creatinine 1.00 0.60-1.20 mg/dl Estimated GFR () 63.8 Estimated GFR (Non- 55.1 BUN/Creatinine Ratio 21.8 10-20 Random Glucose 82 70-99 mg/dl Calcium Level 7.9 8.5-10.1 mg/dl Total Bilirubin 0.9 0.2-1 mg/dl Aspartate Amino Transf (AST/SGOT) 89 15-37 U/L Alanine Aminotransferase (ALT/SGPT) 19 12-78 U/L Alkaline Phosphatase 115 45-117 U/L Troponin I 0.017 0-0.045 ng/ml Pro-B-Type Natriuretic Peptide 1409 0-900 pg/ml Total Protein 4.3 6.4-8.2 gm/dl Albumin 2.3 3.4-5.0 gm/dl Globulin 2.0 2.5-4.0 gm/dl Albumin/Globulin Ratio 1.2 0.9-2 25-Hydroxy Vitamin D Total 11.1 30-100 ng/ml Thyroid Stimulating Hormone (TSH) 4.260 0.300-4.500 uIu/ml Urine Color YELLOW Urine Appearance CLEAR CLEAR Urine pH 5.0 4.5-7.5 Urine Specific [place] 1.018 1.000-1.030 Urine Protein NEG NEG Urine Glucose (UA) NEG NEG Urine Ketones NEG NEG Urine Occult Blood NEG NEG Urine Nitrite NEG NEG Urine Bilirubin NEG NEG Urine Urobilinogen NEG NEG Urine Leukocyte Esterase NEG NEG Lactic Acid Level 6.0 0.4-2.0 mmol/L Arterial Blood pH 7.48 7.35-7.45 Arterial Blood Partial Pressure CO2 29 35-46 mmHg Arterial Blood Partial Pressure O2 152 80-95 mm/Hg Arterial Blood HCO3 21 19-24 mmol/L Arterial Blood Oxygen Saturation 98.2 90-95 % Arterial Blood Base Excess -2.2 -9-1.8 mEq/L Arterial Blood Gas Delivery 2L Nick Test POS POS Test 09/06/16 21:56 09/06/16 22:29 09/07/16 04:25 Range/Units Lactic Acid Level 4.9 5.2 0.4-2.0 mmol/L White Blood Count 3.15 2.87 4.8-10.8 K/uL Red Blood Count 2.45 2.48 4.2-5.4 M/uL Hemoglobin 7.2 7.2 12.0-16.0 g/dL Hematocrit 21.0 21.4 37-47 % Mean Corpuscular Volume 85.7 86.3 80-100 fL Mean Corpuscular Hemoglobin 29.4 29.0 25-34 pg Mean Corpuscular Hemoglobin Concent 34.3 33.6 32-36 g/dl RDW Standard Deviation 56.2 56.3 36.4-46.3 fL RDW Coefficient of Variation 18.3 18.3 11.5-14.5 % Platelet Count 11 7 130-400 K/uL Mean Platelet Volume 8.4 7.4-10.4 fL Nucleated RBC Absolute Count (auto) 0.04 0-0 K/uL Nucleated Red Blood Cells % 1.4 % Sodium Level 140 136-145 mmol/L Potassium Level 3.9 3.5-5.1 mmol/L Chloride Level 104 98-107 mmol/L Carbon Dioxide Level 26 21-32 mmol/L Anion Gap 10.0 3-11 mmol/L Blood Urea Nitrogen 21 7-18 mg/dl Creatinine 0.82 0.60-1.20 mg/dl Est Creatinine Clear Calc Drug Dose 58.4 ml/min Estimated GFR () 81.1 Estimated GFR (Non- 70.0 BUN/Creatinine Ratio 25.0 10-20 Random Glucose 75 70-99 mg/dl Calcium Level 7.7 8.5-10.1 mg/dl
[2016-09-07 04:54] LABS: CALCIUM 7.7 mg/dl (8.5-10.1); CREATININE 0.82 mg/dl (0.60-1.20); POTASSIUM 3.9 mmol/L (3.5-5.1)
[2016-09-07 05:25] LABS: HEMATOCRIT 21.4 % (37-47); MEAN CELL VOLUME 86.3 fL (80-100); MEAN CORPUSCULAR HGB CONC 33.6 g/dl (32-36); PLATELET COUNT 7 K/uL (130-400); RED BLOOD COUNT 2.48 M/uL (4.2-5.4); WHITE BLOOD COUNT 2.87 K/uL (4.8-10.8)
--- NOTE | 2016-09-07 06:36 | DIAGNOSTIC IMAGING REPORT ---
CT HEAD WITHOUT CONTRAST (CT) CLINICAL HISTORY: extreme fatigue in CLL patient with unknown cause. COMPARISON STUDY: No previous studies for comparison. TECHNIQUE: Axial CT of the brain is performed from the vertex to the skull base. IV contrast was not administered for this examination. CT DOSE: 537.48 mGy.cm FINDINGS: No intra or extra-axial mass lesions are visualized. There is no CT evidence of acute cortical infarction. There is no evidence of midline shift. There is no acute hemorrhage. No calvarial fractures are visualized. There are minor white matter hypodensities likely on a small vessel basis. There is no evidence of pathologic ventricular dilatation. There is no evidence of acute sinusitis IMPRESSION: No acute intracranial findings Electronically signed by: Fabricio Long M.D. 09/07/2016 6:35 AM Dictated Date/Time: 09/07/2016 6:34 AM
--- NOTE | 2016-09-07 07:06 | DIAGNOSTIC IMAGING REPORT ---
BILATERAL LOWER EXTREMITY VENOUS DOPPLER CLINICAL HISTORY: Shortness of breath. COMPARISON STUDY: No previous studies for comparison. TECHNIQUE: Sonography of the deep venous system of the bilateral lower extremities was performed. Compression and augmentation were evaluated. FINDINGS: The bilateral common femoral, superficial femoral and popliteal veins were compressible. Augmentation was normal. Flow was shown within the deep calf vessels although the calf vessels were suboptimally assessed on this exam. IMPRESSION: No evidence of deep venous thrombus within the bilateral lower extremities. Electronically signed by: Kelton Garvey M.D. 09/07/2016 7:05 AM Dictated Date/Time: 09/07/2016 7:04 AM
--- NOTE | 2016-09-07 07:41 | DIAGNOSTIC IMAGING REPORT ---
CT ABD/PELVIS ORAL CONT ONLY CT DOSE: 378.39 mGy.cm CLINICAL HISTORY: Abdominal pain. Thrombocytopenia. CLL. TECHNIQUE: Axial images of the abdomen and pelvis were obtained without IV contrast. Oral contrast was administered. COMPARISON STUDY: PET CT July 08, [address] August 24, 2016. FINDINGS: Visualized portions of the lower chest demonstrate increased size of the bilateral lateral chest wall musculature including the latissimus dorsi. There is a small left pleural effusion. There is a small amount of ascites. Generalized anasarca is noted. Evaluation of the abdomen and pelvis is suboptimal on this unenhanced exam. Unenhanced images of liver, adrenal glands, kidneys and pancreas are unremarkable. Borderline splenomegaly is noted. Extensive moderate abdominal and pelvic lymphadenopathy has improved since exam of July 08, 2016. This includes rachel hepatis, peripancreatic, para-aortic, mesenteric, iliac and inguinal lymphadenopathy. Lymphadenopathy within the lower chest on that exam has also improved. An index peripancreatic node measures 2 cm on this exam. It measured 2.8 cm on PET/CT of July 08, 2016. A right external iliac node measures 4.3 x 3.3 cm. It previously measured 5.5 x 4.2 cm. A Prabhakar catheter is noted within the bladder. No pneumatosis, free air or portal venous gas is present. IMPRESSION: 1. Extensive abdominal and pelvic lymphadenopathy with moderate improvement since PET/CT of July 08, 2016. Sinus are consistent with history of CLL. 2. Evidence of volume overload, including anasarca, small left pleural effusion and small amount of ascites. 3. Increased size of the bilateral lower lateral chest wall musculature including the latissimus dorsi. This could be due to edema although increased attenuation raise the possibility of intramuscular hematomas. Electronically signed by: Kelton Garvey M.D. 09/07/2016 7:40 AM Dictated Date/Time: 09/07/2016 7:05 AM
[2016-09-07] MEDS: FLUCONAZOLE SUSP 40 MG/ML 35 ML PO SCH (08:05)
[2016-09-07 13:29] LABS: ANISOCYTOSIS PRESENT; SMUDGE CELLS PRESENT; TOXIC GRANULATION 1+; VACUOLIZATION 1+
[2016-09-07 14:19] LABS: LYMPHOCYTE % 20.9 %; META ABS # 0.03 K/uL (0-0); METAMYELOCYTE % 0.9 %; NEUTROPHILS % 75.6 %
[2016-09-07 14:46] LABS: COMPLETE YES
--- NOTE | 2016-09-07 15:00 | DIAGNOSTIC IMAGING REPORT ---
LUNG PERFUSION IMAGING CLINICAL HISTORY: sob thrombocytopenia COMPARISON STUDY: 09/06/2016 chest x-ray FINDINGS: The patient was unable to tolerate the ventilatory portion of the study. The patient was perfused utilizing 5.6 mCi of technetium 99m MAA. The perfusion pattern is slightly heterogeneous with tiny peripheral defects. Given the lack of ventilatory study, the examination is indeterminate. If there is a strong clinical concern over the presence of acute pulmonary embolism, then CT angiography should be obtained in follow-up. IMPRESSION: Indeterminate study. The patient was unable to tolerate the ventilatory portion of the examination. Electronically signed by: Fabricio Long M.D. 09/07/2016 2:59 PM Dictated Date/Time: 09/07/2016 2:56 PM
--- NOTE | 2016-09-07 18:30 | Progress Note ---
Internal Med Progress Note Date of Service: Sep 07, 2016. Provider Documentation: SUBJECTIVE: sitting on the chair comfortably denies pain has diarrhea still has sob no obvious bleeding afebrile OBJECTIVE: Vital Signs-as noted below Exam: General-alert and awake. Not in distress ENT-Normal hearing Neck-no neck masses, supple Lungs-cta b/l no wheezing or crackles Heart-s1 and s2 heard regular rate and rhythm, no murmurs Abdomen-soft bowel sounds present non tender no distension Extremities-lower extremity edema present no erythema Neuro-alert and awake moves extremities Lab data as noted below. ASSESSMENT & PLAN: 76 yo F with CLL who was recently discharged after treatment for pneumonia and lower platelets who presents with new hypoxia and significant thrombocytopenia 1. SOB with Hypoxia-Hx of CLL. currently saturating ok v/q scan intermediate probability lower extremity doppler no DVT CXR no acute findings Could not do Ct chest Pe study as patient is hard stick and only had 22 guage line and was not able to get picc line no heparin as platelets are very low Sob could also be from anemia and CLL plan for central line in am continue to monitor closely. 2. Elevated lactic acid doesnot seem to be in sepsis mostly from CLL will do empiric abx consult nephrology . Edema- Ct abd/pelvis no obvious lymph or venous obstruction has anasarca low albumin will consult nephrology to help with diuretics and possible albumin infusions. 4. Anemia -multifactorial, chronically low 2/2 bone marrow suppression from chemo and malignancy. Also recently phlebotomized frequently in hospital. No active bleeding at this time. Plan for transfusion and awaiting for central line. 4. Thrombocytopenia- had platelet transfusion yesterday., platelets today 7. Transfusing one more unit.Will hold platelets for future transfusions. Will f/u labs in am. 5. Fatigue-25OH checked and she is deficient. TSH, B12, Folate or normal.. 6. Thrush found on exam-fluconazole started, sputum culture ordered. 7. CKDIII-at baseline. 8. CLL-denies constitutional symptoms, last chemo was August 12. Oncology consulted. Await inputs. 9. Hypothyroidism-TSH normal, . Cont current dose Synthroid. Dvt px scds Disposition Close monitor in tele Vital Signs: Date Time Temp Pulse Resp B/P (MAP) Pulse Ox O2 Delivery O2 Flow Rate FiO2 09/07/16 16:29 36.6 113 20 120/66 91 09/07/16 16:00 Room Air 09/07/16 15:23 36.6 116 18 120/66 (84) 91 Room Air 09/07/16 12:00 Room Air 09/07/16 11:38 36.5 82 16 114/63 (80) 95 09/07/16 09:20 92 09/07/16 08:00 Room Air 09/07/16 06:53 36.9 115 26 101/61 (74) 90 Room Air 09/07/16 04:52 36.5 121 18 123/70 (87) 91 Room Air 09/07/16 04:00 Room Air 09/07/16 00:00 36.3 93 18 123/73 (90) 100 Nasal Cannula 09/07/16 00:00 Room Air 09/06/16 21:30 36.6 91 20 96/57 Room Air 09/06/16 20:56 96 20 100/51 97 09/06/16 20:47 36.9 91 20 100/51 97 2.0 09/06/16 19:45 37.2 102 96 2.0 09/06/16 18:49 37.2 118 20 103/54 95 2.0 09/06/16 18:32 37.0 120 20 95 2.0 09/06/16 18:20 114 Lab Results: Results Past 24 Hours Test 09/06/16 19:55 09/06/16 21:56 09/06/16 22:29 09/07/16 04:25 Range/Units Arterial Blood pH 7.48 7.35-7.45 Arterial Blood Partial Pressure CO2 29 35-46 mmHg Arterial Blood Partial Pressure O2 152 80-95 mm/Hg Arterial Blood HCO3 21 19-24 mmol/L Arterial Blood Oxygen Saturation 98.2 90-95 % Arterial Blood Base Excess -2.2 -9-1.8 mEq/L Arterial Blood Gas Delivery 2L Nick Test POS POS Lactic Acid Level 4.9 5.2 0.4-2.0 mmol/L White Blood Count 3.15 2.87 4.8-10.8 K/uL Red Blood Count 2.45 2.48 4.2-5.4 M/uL Hemoglobin 7.2 7.2 12.0-16.0 g/dL Hematocrit 21.0 21.4 37-47 % Mean Corpuscular Volume 85.7 86.3 80-100 fL Mean Corpuscular Hemoglobin 29.4 29.0 25-34 pg Mean Corpuscular Hemoglobin Concent 34.3 33.6 32-36 g/dl RDW Standard Deviation 56.2 56.3 36.4-46.3 fL RDW Coefficient of Variation 18.3 18.3 11.5-14.5 % Platelet Count 11 7 130-400 K/uL Mean Platelet Volume 8.4 7.4-10.4 fL Nucleated RBC Absolute Count (auto) 0.04 0-0 K/uL Neutrophils % (Manual) 75.6 % Lymphocytes % (Manual) 20.9 % Monocytes % (Manual) 1.7 % Metamyelocytes % 0.9 % Blast Cells % 0.9 % Nucleated Red Blood Cells % 1.4 % Neutrophils # (Manual) 2.17 1.4-6.5 K/uL Total Absolute Neutrophils 2.17 1.4-6.5 K/uL Lymphocytes # (Manual) 0.60 1.2-3.4 K/uL Total Absolute Lymphocytes 0.60 1.2-3.4 K/uL Monocytes # (Manual) 0.05 0.11-0.59 K/uL Metamyelocytes # 0.03 0-0 K/uL Blast Cells # 0.03 0-0 K/uL Smudge Cells PRESENT Blood Smear Review Toxic Granulation 1+ Toxic Vacuolation 1+ Anisocytosis PRESENT Sodium Level 140 136-145 mmol/L Potassium Level 3.9 3.5-5.1 mmol/L Chloride Level 104 98-107 mmol/L Carbon Dioxide Level 26 21-32 mmol/L Anion Gap 10.0 3-11 mmol/L Blood Urea Nitrogen 21 7-18 mg/dl Creatinine 0.82 0.60-1.20 mg/dl Est Creatinine Clear Calc Drug Dose 58.4 ml/min Estimated GFR () 81.1 Estimated GFR (Non- 70.0 BUN/Creatinine Ratio 25.0 10-20 Random Glucose 75 70-99 mg/dl Calcium Level 7.7 8.5-10.1 mg/dl Vitamin B12 Level 295 211-911 pg/mL Folate 5.48 >5.38 ng/mL Test 09/07/16 15:04 Range/Units Lactic Acid Level 9.3 0.4-2.0 mmol/L
[2016-09-07] MEDS ORDERED: PIPERACILL/TAZOBAC CONSULT ACTIVE PRN (19:15)
[2016-09-07] MEDS ORDERED: VANCOMYCIN CONSULT ACTIVE PRN (19:15)
[2016-09-07 20:52] LABS: URINE APPEARANCE CLOUDY (CLEAR); URINE BILIRUBIN NEG (NEG); URINE COLOR YELLOW; URINE EPITHELIAL CELL AUTO >30 /lpf (0-5); URINE NITRITE NEG (NEG); URINE SPECIFIC GRAVITY 1.018 (1.000-1.030); UROBILINOGEN NEG (NEG); ZZUR CULT IF INDIC CLEAN CATCH YES
--- NOTE | 2016-09-07 20:52 | Pharmacy Progress Note ---
Pharmacy Antibiotic Consult Date of Service: Sep 07, 2016. Pharmacy Dosing Scope Pharmacy is consulted to initiate Vancomycin/Zosyn IV dosing therapy, order appropriate labs and adjust drug dose/frequency. Subjective The patient is a 76 year old female admitted on Sep 06, 2016 at 19:13. Objective Height (Feet): 5 Height (Inches): 5.00 Weight (Kilograms): 70.600 Lab Results (24hrs): Test 09/06/16 22:29 09/07/16 04:25 09/07/16 15:04 09/07/16 20:35 White Blood Count 3.15 K/uL (4.8-10.8) 2.87 K/uL (4.8-10.8) Red Blood Count 2.45 M/uL (4.2-5.4) 2.48 M/uL (4.2-5.4) Hemoglobin 7.2 g/dL (12.0-16.0) 7.2 g/dL (12.0-16.0) Hematocrit 21.0 % (37-47) 21.4 % (37-47) Mean Corpuscular Volume 85.7 fL (80-100) 86.3 fL (80-100) Mean Corpuscular Hemoglobin 29.4 pg (25-34) 29.0 pg (25-34) Mean Corpuscular Hemoglobin Concent 34.3 g/dl (32-36) 33.6 g/dl (32-36) RDW Standard Deviation 56.2 fL (36.4-46.3) 56.3 fL (36.4-46.3) RDW Coefficient of Variation 18.3 % (11.5-14.5) 18.3 % (11.5-14.5) Platelet Count 11 K/uL (130-400) 7 K/uL (130-400) Mean Platelet Volume 8.4 fL (7.4-10.4) Nucleated RBC Absolute Count (auto) 0.04 K/uL (0-0) Neutrophils % (Manual) 75.6 % Lymphocytes % (Manual) 20.9 % Monocytes % (Manual) 1.7 % Metamyelocytes % 0.9 % Blast Cells % 0.9 % Nucleated Red Blood Cells % 1.4 % Neutrophils # (Manual) 2.17 K/uL (1.4-6.5) Total Absolute Neutrophils 2.17 K/uL (1.4-6.5) Lymphocytes # (Manual) 0.60 K/uL (1.2-3.4) Total Absolute Lymphocytes 0.60 K/uL (1.2-3.4) Monocytes # (Manual) 0.05 K/uL (0.11-0.59) Metamyelocytes # 0.03 K/uL (0-0) Blast Cells # 0.03 K/uL (0-0) Smudge Cells PRESENT Blood Smear Review Toxic Granulation 1+ Toxic Vacuolation 1+ Anisocytosis PRESENT Sodium Level 140 mmol/L (136-145) Potassium Level 3.9 mmol/L (3.5-5.1) Chloride Level 104 mmol/L (98-107) Carbon Dioxide Level 26 mmol/L (21-32) Anion Gap 10.0 mmol/L (3-11) Blood Urea Nitrogen 21 mg/dl (7-18) Creatinine 0.82 mg/dl (0.60-1.20) Est Creatinine Clear Calc Drug Dose 58.4 ml/min Estimated GFR () 81.1 Estimated GFR (Non- 70.0 BUN/Creatinine Ratio 25.0 (10-20) Random Glucose 75 mg/dl (70-99) Lactic Acid Level 5.2 mmol/L (0.4-2.0) 9.3 mmol/L (0.4-2.0) Calcium Level 7.7 mg/dl (8.5-10.1) Vitamin B12 Level 295 pg/mL (211-911) Folate 5.48 ng/mL (>5.38) Micro Results: Item Value Date Time Blood Culture Received 09/07/161902 Blood Pending Blood Culture Received 09/07/161899 Blood Pending Recent Pertinent Medications Item Value Date Time Vancomycin HCl 270 ml @ 125 mls/hr 09/08/16 1100 1000 mg/Sodium Q14H/IV Chloride Vancomycin HCl 535 ml @ 200 mls/hr 09/07/16 2100 1750 mg/Sodium TODAY@2100/IV Chloride Item Value Date Time Piperacillin Sod/ 115 ml @ 200 mls/hr 09/07/16 2000 Tazobactam Sod Q6H/IV 3.375 gm/Dextrose Assessment & Plan Vancomycin * 76 yo F w/ CLL discharged 09/03/16 after being treated for pneumonia/anemia/ thrombocytopenia/neutropenia * re-admitted yesterday with hypoxia & elevated lactic acid, worsening today * Loading dose: Vancomycin 1750mg IV x 1 dose (~25mg/kg) * Maintenance dose: Vancomycin 1gm IV q14h (most recent dosing upon discharge) * Goal peak level: 30-40mcg/mL * Goal trough level: 15-20mcg/mL * Trough level ordered for: 09/09/16 1500 dose Pharmacy will continue to follow and will adjust dose/frequency as necessary. Thank you
[2016-09-07 20:55] LABS: MANUAL MICROSCOPIC REQUIRED? NO; REVIEW REQ? YES
[2016-09-07] MEDS ORDERED: VANCOMYCIN INJ 1,750 MG in SODIUM CHLORIDE 0.9% 500ML 500 ML IV SCH (21:00)
[2016-09-07] MEDS: PIPERACILL/TAZOBAC IV 3.375 GM in DEXTROSE 5% 100ML 100 ML IV SCH (21:06)
[2016-09-07] MEDS: ACETAMINOPHEN 325 MG TAB PO PRN (21:07)
[2016-09-08] VITALS (64 sets, daily range): BP systolic 82–128; BP diastolic 32–68; PULSE 81–113; TEMP 36.5–38.1; O2SAT 92–99
[2016-09-08] MEDS ORDERED: PIPERACILL/TAZOBAC IV 3.375 GM in DEXTROSE 5% 100ML 100 ML IV SCH ×2
[2016-09-08] MEDS: PIPERACILL/TAZOBAC IV 3.375 GM in DEXTROSE 5% 100ML 100 ML IV SCH ×4 (01:59→19:36)
[2016-09-08 07:04] LABS: CREATININE 0.75 mg/dl (0.60-1.20)
--- NOTE | 2016-09-08 08:43 | DIAGNOSTIC IMAGING REPORT ---
CHEST ONE VIEW PORTABLE CLINICAL HISTORY: S/P RIJ 3L CVC - R/O PNX - R/O hematoma COMPARISON STUDY: Chest radiograph September 06, 2016. FINDINGS: There has been interval placement of a right internal jugular central line. Catheter tip projects over the distal SVC. There is no pneumothorax. A small left pleural effusion is unchanged. There is no evidence of pulmonary edema. Cardiomediastinal silhouette is stable. There is no radiographic evidence of a mediastinal hematoma. IMPRESSION: 1. No pneumothorax following placement of a right internal jugular central line. 2. No change in a small left pleural effusion. Electronically signed by: Kelton Garvey M.D. 09/08/2016 8:41 AM Dictated Date/Time: 09/08/2016 8:40 AM
[2016-09-08 08:45] LABS: HEMATOCRIT 17.2 % (37-47); MEAN CELL VOLUME 86.4 fL (80-100); MEAN CORPUSCULAR HEMOGLOBIN 30.2 pg (25-34); MEAN CORPUSCULAR HGB CONC 34.9 g/dl (32-36); MEAN PLATELET VOLUME 9.4 fL (7.4-10.4); PLATELET COUNT 5 K/uL (130-400); RED BLOOD COUNT 1.99 M/uL (4.2-5.4); WHITE BLOOD COUNT 2.46 K/uL (4.8-10.8)
[2016-09-08 08:46] LABS: BUN/CREATININE RATIO 24.1 (10-20); CREATININE 0.78 mg/dl (0.60-1.20); POTASSIUM 3.7 mmol/L (3.5-5.1)
[2016-09-08 08:53] LABS: CALCIUM 8.3 mg/dl (8.5-10.1)
--- NOTE | 2016-09-08 08:54 | Procedure Note ---
Procedure Note Procedure Date Sep 08, 2016. Central Line Procedure time out: side/site verified Consent obtained: written Time of procedure: 08:00 Performed by: attending Indications: poor venous access Contraindications: other (thrombocytopenia) Prep: chlorhexadine prep Anesthesia: local injection, lidocaine 1% without epi Volume anesthetic (ml's): 4 Central line lumen: triple Central line location: internal jugular (R) Additional details: ultrasound guidance, Selinger technique used, line sutured , good blood return CXR: appropriate position, no pneumothorax Complications: none Patient tolerated procedure: well Post-procedure vital signs: reviewed and stable Comments: Critical Care Medicine Point of Care Bedside Ultrasound Procedure: Procedural Ultrasound Procedure Date: September 08, 2016 Indication: Poor venous access Attending: Shaila Lui DO Resident/Physician [employer]: Bridget Artery AND Vein visualized: Yes Compressible Vein: Yes Guidewire or Short Catheter seen in vein prior to dilation: Yes Line confirmed in Vein with ultrasound: Yes Lung Sliding on side of attempt (if applicable): NA If no lung sliding or not obtained has CXR been ordered: Yes Impression: Successful Right IJ placement Plan: Okay to use CVL Images obtained are saved for permanent record
--- NOTE | 2016-09-08 09:00 | Critical Care Consultation ---
Critical Care Consultation Date of Consultation: Sep 08, 2016. Attending Physician: Arnold Gleason MD Reason for Consultation: Needs central line access, Elevated lactic acid History of Present Illness Ms aVrgas is a 76 yo F with CLL, on chemo (last tx August 12), who presents to the ICU from telemetry with worsening shortness of breath, worsening anemia and neutropenia, and increased lactic acid level. She has has multiple admissions over the last few months, and reports she feels tired of it all. She knows she is sick and clearly states she does not want any dramatic interventions including intubation or cardiac resuscitation. On review of records, she was in the hospital from 08/28/16 to 09/03/16, and discharged on Levaquin for pneumonia. She was feeling short of breath at that time, and needed 2L oxygen at home. Daughter reports her shortness of breath has been going on for a while, and increasingly fatigued. Her weight has fluctuated significantly, previously losing 35 pounds, then back at baseline ( though she has been increasingly swollen). The patient reports she has also been passing stool more frequently than before , now up to 2-3 times per day. She denies any abdominal pain or blood in the stool. She reports decreased appetite. She denies chest pain. She feels more swollen throughout her body. Past Medical/Surgical History Medical Problems: (1) Anemia (2) Chronic lymphocytic leukemia (3) CKD (chronic kidney disease), stage III (4) CLL (chronic lymphoid leukemia) in relapse (5) HTN (hypertension) (6) Hypertension (7) Hypothyroidism (8) Lymphoma (9) Pancytopenia (10) SOB (shortness of breath) (11) SOBOE (shortness of breath on exertion) (12) Thrombocytopenia Surgical Problems: (1) History of hysterectomy Family History Cancer Heart disease Hypertension Social History Smoking Status: Former Smoker Smokeless Tobacco Use: No Drug Use: none Occupation Status: retired (Used to work at [employer]) Allergies Coded Allergies: No Known Allergies (Unverified , 08/28/16) Home Medications Scheduled Albuterol (Ventolin Hfa), 2 PUFF INH Q4H Cholecalciferol (Vitamin D), 1,000 UNITS PO DAILY Hydrochlorothiazide (Hctz), 12.5 MG PO DAILY Lactobacillus Acidophilus (Lactinex), 2 TAB PO BID17 Levofloxacin (Levofloxacin), 500 MG PO DAILY@11 Levothyroxine Sodium (Synthroid), 100 MCG PO DAILY Current Inpatient Medications Current Inpatient Medications Medications (Trade) Dose Ordered Sig/Shiela Route Start Time Stop Time Status Last Admin Dose Admin Acetaminophen (Tylenol Tab) 650 mg Q4H PRN PO 09/06/16 19:15 10/06/16 19:14 09/07/16 21:07 650 MG Polyethylene (Miralax Powder Packet) 17 gm DAILY PRN PO 09/06/16 19:15 10/06/16 19:14 Fluconazole (Diflucan Susp) 200 mg QAM PO 09/07/16 09:00 09/21/16 08:59 09/07/16 08:05 200 MG Ergocalciferol (Vitamin D Cap) 50,000 interunit Q4D PO 09/06/16 22:00 10/20/16 22:01 09/06/16 23:26 50,000 INTERUNIT Ioversol (Optiray 320) 100 ml UD PRN IV 09/07/16 00:15 09/11/16 00:14 Vancomycin HCl 1000 mg/Sodium Chloride 270 ml @ 125 mls/hr Q14H IV 09/08/16 11:00 09/09/16 23:59 Piperacillin Sod/ Tazobactam Sod 3.375 gm/Dextrose 115 ml @ 200 mls/hr Q6H IV 09/07/16 20:00 09/09/16 19:59 09/08/16 01:59 200 MLS/HR Vancomycin HCl (Consult) 1 ea UD PRN N/A 09/07/16 19:15 10/07/16 19:14 Piperacillin Sod/ Tazobactam Sod (Consult) 1 ea UD PRN N/A 09/07/16 19:15 10/07/16 19:14 Review of Systems Constitutional: + sweats, + weakness, + fatigue, No fever, No chills Eyes: No worsening of vision ENT: No hearing loss Respiratory: + shortness of breath, + dyspnea on exertion, + dyspnea at rest, No cough, No sputum, No wheezing, No hemoptysis Cardiovascular: + edema, No chest pain, No orthopnea, No palpitations Abdomen: + diarrhea, No pain, No nausea, No vomiting, No constipation, No GI bleeding Musculoskeletal: No joint pain, No muscle pain Genitourinary - Female: No dysuria, No hematuria Neurologic: + weakness, No memory loss Psychiatric: No depression symptoms Endocrine: No fatigue Integumentary: No rash Physical Exam Date Time Temp Pulse Resp B/P (MAP) Pulse Ox O2 Delivery O2 Flow Rate FiO2 09/08/16 07:11 36.9 86 20 82/44 (57) 99 Nasal Cannula 2.0 09/08/16 04:00 97 Nasal Cannula 2.0 09/08/16 04:00 36.6 85 20 94/55 (68) 97 Nasal Cannula 2.0 09/08/16 00:01 95 Nasal Cannula 2.0 09/08/16 00:01 36.6 86 20 95/45 (62) 95 Nasal Cannula 2.0 09/07/16 20:00 90 Room Air 2.0 09/07/16 19:52 97 Nasal Cannula 2.0 09/07/16 19:50 37.9 123 20 131/61 (84) 90 Room Air 09/07/16 16:29 36.6 113 20 120/66 91 09/07/16 16:00 Room Air 09/07/16 15:23 36.6 116 18 120/66 (84) 91 Room Air 09/07/16 12:00 Room Air 09/07/16 11:38 36.5 82 16 114/63 (80) 95 09/07/16 09:20 92 General Appearance: other (anasarca) Head: normocephalic Eyes: subconj hemorrhage, other (R sclera hemorrhagic) ENT: normal ear exam Neck: normal range of motion, no stridor, other (R IJ placed 09/08/16) Respiratory: no respiratory distress Cardiovasular: regular rate/rhythm, normal S1S2, no M/G/R, normal peripheral pulses Abdomen: non tender, normal bowel sounds Upper Extremities: edema Lower Extremities: edema Edema: RUE (1+), LUE, Bilateral LE (2+) Neuro: alert, oriented x 3 Laboratory Results Last 24 Hours Test 09/07/16 15:04 09/07/16 20:35 09/08/16 06:10 09/08/16 08:10 Lactic Acid Level 9.3 mmol/L Urine Color YELLOW Urine Appearance CLOUDY Urine pH 5.0 Urine Specific Freedom 1.018 Urine Protein 1+ Urine Glucose (UA) NEG Urine Ketones NEG Urine Occult Blood 3+ Urine Nitrite NEG Urine Bilirubin NEG Urine Urobilinogen NEG Urine Leukocyte Esterase NEG Urine WBC (Auto) 1-5 /hpf Urine RBC (Auto) >30 /hpf Urine Hyaline Casts (Auto) /lpf Urine Epithelial Cells (Auto) >30 /lpf Urine Bacteria (Auto) NEG Urine Renal Epithelial Cells /lpf Urine Pathogenic Casts /lpf Urine Yeast (Auto) Creatinine 0.75 mg/dl 0.78 mg/dl Est Creatinine Clear Calc Drug Dose 63.1 ml/min 60.7 ml/min Estimated GFR () 90.4 86.2 Estimated GFR (Non- 78.0 74.4 White Blood Count 2.46 K/uL Red Blood Count 1.99 M/uL Hemoglobin 6.0 g/dL Hematocrit 17.2 % Mean Corpuscular Volume 86.4 fL Mean Corpuscular Hemoglobin 30.2 pg Mean Corpuscular Hemoglobin Concent 34.9 g/dl Platelet Count 5 K/uL Mean Platelet Volume 9.4 fL RDW Standard Deviation 58.4 fL RDW Coefficient of Variation 18.9 % Nucleated RBC Absolute Count (auto) 0.03 K/uL Nucleated Red Blood Cells % 1.1 % Sodium Level 138 mmol/L Potassium Level 3.7 mmol/L Chloride Level 102 mmol/L Carbon Dioxide Level 23 mmol/L Anion Gap 13.0 mmol/L Blood Urea Nitrogen 19 mg/dl BUN/Creatinine Ratio 24.1 Random Glucose 83 mg/dl Calcium Level 8.3 mg/dl Total Bilirubin 0.9 mg/dl Aspartate Amino Transf (AST/SGOT) 71 U/L Alanine Aminotransferase (ALT/SGPT) 15 U/L Alkaline Phosphatase 77 U/L Total Protein 3.9 gm/dl Albumin 1.9 gm/dl Globulin 2.0 gm/dl Albumin/Globulin Ratio 1.0 Diagnostic Results CXR 09/08/16: IMPRESSION: 1. No pneumothorax following placement of a right internal jugular central line. 2. No change in a small left pleural effusion. V/Q SCAN 09/07/16: IMPRESSION: Indeterminate study. The patient was unable to tolerate the ventilatory portion of the examination. CT ABD/PELVIS: IMPRESSION: 1. Extensive abdominal and pelvic lymphadenopathy with moderate improvement since PET/CT of July 08, 2016. Sinus are consistent with history of CLL. 2. Evidence of volume overload, including anasarca, small left pleural effusion and small amount of ascites. 3. Increased size of the bilateral lower lateral chest wall musculature including the latissimus dorsi. This could be due to edema although increased attenuation raise the possibility of intramuscular hematomas. HEAD CT: IMPRESSION: No acute intracranial findings US: IMPRESSION: No evidence of deep venous thrombus within the bilateral lower extremities. CXR ON ADMISSION: IMPRESSION: No acute cardiopulmonary abnormality. Assessment & Plan TELLER II SCORE: 19 -> Estimated 22% mortality BIOPROCESS DEVELOPMENT ENGINEER/NEURO: GCS 15 CT Head - As above RESP: On 2L NC Will check procalcitonin CVS: CV Drips: None Rhythm: Sinus EKG 09/08/16: 91bpm, sinus rhythm, QTc 445 ECHO: 08/30/16: LV normal size, EF > 70%, Grade I diastolic dysfunction, mild tricuspid regurg, RV systolic pressure elevated at 40-50mmHg RENAL: Cr 0.78, baseline 0.7, eGFR 74.4 I&O's: So far today +390mL, cumulative +147mL Weight 68.8kg from 70.4kg Prabhakar present GI/NUTRITION: Eating about 50% of meals, Nutrition consulted, recommended changing diet to mechanical soft and change diet to 2g Na+ diet, increase snacks, vitamins, and vit D / b12 supplementation. BM: 2 today Will check a C. Diff ENDO: 24 hr glc 75-83 No hx of diabetes, not on insulin HEME: Hb 6.0 today from 9.4 on 09/06 Remains neutropenic and thrombocytopenic DVT Prophylaxis: SHAY Stockings, chemical prophylaxis not indicated SKIN/MSK: Petechiae to extremities Monitor for wounds ID: R IJ placed 09/08/[address] Lui Cultures - Blood, Urine obtained 09/07, Fungal added 09/08 - All pending Vancomycin IV day 2 Zosyn day 2 Fluconazole 200mg qAM day 2 CODE STATUS: Confirmed with patient that she is a DO NOT RESUSCITATE / DO NOT INTUBATE DISPO: Transfer to ICU Resident Physician Supervision Note: Dr. Tomas was resident physician during care of patient. I separately evaluated patient and did history and exam. I discussed the case with the resident and generally agree with the findings and plan. I had an extensive discussion with the patient and her daughter regarding goals of care, she does not desire to be intubated and do undergo CPR in event of cardiac arrest. I discussed the case with Dr. Burt. Reported not accepted for transfer for additional oncology management. Transfuse 2 units for hyperdynamic cardiac status, and 1 unit pooled platelet. Continue to monitor for sepsis. I have personally spent 60 minutes of critical care time in the direct management of this patient. This is a life/limb threatening event. This includes time spent evaluating patient, direct bedside care, chart review, placing orders, interpretation of diagnostic studies, discussion with consultants, patient, and family members, as well as other required patient management activities. This time is exclusive of all separately billable procedures, and teaching time and separate from and in addition to any other critical care service time. Documented By: Lloyd Lui DO Resident Tracking Resident Involvement: Resident Care Provided Care Provided: Adult [facility]
[2016-09-08 09:48] LABS: COMPLETE YES; LYMPH ABS # 0.53 K/uL (1.2-3.4); LYMPHOCYTE % 21.7 %; META ABS # 0.04 K/uL (0-0); METAMYELOCYTE % 1.7 %; MYELOCYTE % 2.6 %; NEUTROPHILS % 71.4 %; POLYCHROMASIA 1+; VACUOLIZATION 3+
[2016-09-08] MEDS: FLUCONAZOLE SUSP 40 MG/ML 35 ML PO SCH (12:00)
[2016-09-08] MEDS: VANCOMYCIN INJ 1,000 MG in SODIUM CHLORIDE 0.9% 250ML 250 ML IV SCH (12:00)
[2016-09-08 12:44] LABS: FIBRINOGEN* 345 mg/dl (184-400)
[2016-09-08 13:03] LABS: HEMATOCRIT 17.9 % (37-47)
--- NOTE | 2016-09-08 14:14 | Clinical Documentation Query ---
QUERY 1 OF [address] GOTTI, In your clinical opinion is this patient being managed for: ( ) Multifactorial Pancytopenia due to combination of chemotherapy and malignancy ( ) Other explanation of clinical findings (Please Explain) ( ) Unable to determine (Please Define) ( ) Need to Discuss ( ) Not Agree The medical record reflects the following clinical findings, treatment, and risk factors. Clinical Indicators: 76 yo female presenting with increasing dyspnea. WBC 3.32, RBC 3.24, Hgb 9.4, Hct 28.1, plts 3. H/P lists anemia and thrombocytopenia separately. Treatment:transfuse 2 U irradiated PRBC, transfuse 2 U Plts, heme/onc consult, serial CBC's Risk Factors:ongoing chemotherapy (last dose in August 2016), CLL QUERY 2 OF 2 There are multiple codes for thrush/candidiasis. Please document specific location. In your clinical opinion is this patient being managed for: ( ) oral thrush ( ) Other explanation of clinical findings (Please Explain) ( ) Unable to determine (Please Define) ( ) Need to Discuss ( ) Not Agree The medical record reflects the following clinical findings, treatment, and risk factors. Clinical Indicators: H/P indicates pt with thrush but does not specify location. Treatment: fluconazole, sputum culture Risk Factors: chemotherapy, CLL, Please clarify and document your clinical opinion in the progress notes and discharge summary. Terms such as "probable", "suspected", "likely", "questionable", "possible", or "still to be ruled out" are acceptable. IF IN AGREEMENT, YOU MUST DOCUMENT ABOVE DIAGNOSTIC STATEMENT IN DAILY PROGRESS NOTES AND DISCHARGE SUMMARY. This document is not part of the patient's record. Thank You, Delia Nguyen, RN [phone]
--- NOTE | 2016-09-08 19:18 | Progress Note ---
Internal Med Progress Note Date of Service: Sep 08, 2016. Provider Documentation: SUBJECTIVE: s/p central line and today and was later transferred to ICU as blood pressure was on lower side and elevated lactic acid had mild temp spike last night currently afebrile and seems comfortable denies any pain sob is ok now no nausea or abdominal pain no signs of obvious bleeding OBJECTIVE: Vital Signs-as noted below Exam: General-alert and awake. Not in distress ENT-Normal hearing Neck-no neck masses, supple Lungs-cta b/l no wheezing or crackles Heart-s1 and s2 heard regular rate and rhythm, no murmurs Abdomen-soft bowel sounds present non tender no distension Extremities-lower extremity edema present no erythema Neuro-alert and awake moves extremities Lab data as noted below. ASSESSMENT & PLAN: 76 yo F with CLL who was recently discharged after treatment for pneumonia and lower platelets who presents with new hypoxia and significant thrombocytopenia 1. SOB with Hypoxia-Hx of CLL. currently saturating ok v/q scan intermediate probability lower extremity doppler no DVT CXR no acute findings Could not do Ct chest Pe study as patient is hard stick and only had 22 guage line and was not able to get picc line no heparin as platelets are very low Sob could also be from anemia and CLL s/p central line today saturating fine on 2lts transferred to ICU for close monitor continue to monitor closely. 2. Elevated lactic acid mild temp spike empiric iv zosyn and vanco await cx transferred to icu . Edema- Ct abd/pelvis no obvious lymph or venous obstruction has anasarca low albumin 4. Anemia -multifactorial, chronically low 2/2 bone marrow suppression from chemo and malignancy. Also recently phlebotomized frequently in hospital. No active bleeding at this time. transfsuing will f/u h and h. 4. Thrombocytopenia- had platelet transfusion yesterday., platelets today 5. Transfusing platelets today. Notifoed heme/onco. Further recommendations per heme/oncology. will f/u labs 5. Fatigue-25OH checked and she is deficient. TSH, B12, Folate or normal.. 6. Thrush found on exam-fluconazole started, sputum culture ordered. 7. CKDIII-at baseline. 8. CLL-denies constitutional symptoms, last chemo was August 12. Oncology consulted and notified 9. Hypothyroidism-TSH normal, . Cont current dose Synthroid. Dvt px scds Disposition Close monitor in ICU Vital Signs: Date Time Temp Pulse Resp B/P (MAP) Pulse Ox O2 Delivery O2 Flow Rate FiO2 09/08/16 18:47 37.6 107 25 108/48 (68) 95 Nasal Cannula 1.0 09/08/16 18:45 106 25 94 09/08/16 18:32 109 26 108/49 (68) 95 09/08/16 18:30 37.4 110 26 93 09/08/16 18:17 108 25 93/44 (60) 94 09/08/16 18:15 109 25 93 09/08/16 18:02 110 25 103/44 (63) 94 09/08/16 18:00 37.4 110 26 93 09/08/16 17:45 111 25 93 09/08/16 17:30 37.2 113 27 94 09/08/16 17:15 37.2 113 27 94 09/08/16 17:02 111 28 109/43 (65) 93 09/08/16 17:00 37.2 113 27 94 09/08/16 16:02 98 23 101/47 (65) 94 09/08/16 16:00 100 23 95 09/08/16 15:02 102 24 106/50 (68) 95 09/08/16 15:00 101 23 94 09/08/16 14:51 93 Nasal Cannula 1.0 09/08/16 14:02 37.2 101 23 100/43 (62) 96 Nasal Cannula 1.0 09/08/16 14:00 105 24 95 09/08/16 13:02 99 19 101/38 (59) 97 09/08/16 13:00 101 23 96 09/08/16 12:02 99 22 99/39 (59) 96 09/08/16 12:00 100 24 95 09/08/16 11:02 93 23 90/37 (54) 97 Nasal Cannula 1.0 09/08/16 11:00 91 21 95 09/08/16 10:45 94 21 94 09/08/16 10:30 95 21 95 09/08/16 10:15 102 21 94 09/08/16 10:02 93 23 91/32 (51) 95 09/08/16 10:00 94 Nasal Cannula 1.0 09/08/16 10:00 102 23 96 09/08/16 09:45 102 23 96 09/08/16 09:40 37.1 96 24 104/45 (64) 95 Nasal Cannula 1.0 09/08/16 09:32 36.9 86 20 96 2.0 09/08/16 09:30 111 09/08/16 09:15 98 09/08/16 09:00 98 09/08/16 08:00 96 Nasal Cannula 2.0 09/08/16 07:11 36.9 86 20 82/44 (57) 99 Nasal Cannula 2.0 09/08/16 04:00 97 Nasal Cannula 2.0 09/08/16 04:00 36.6 85 20 94/55 (68) 97 Nasal Cannula 2.0 09/08/16 00:01 95 Nasal Cannula 2.0 09/08/16 00:01 36.6 86 20 95/45 (62) 95 Nasal Cannula 2.0 09/07/16 20:00 90 Room Air 2.0 09/07/16 19:52 97 Nasal Cannula 2.0 09/07/16 19:50 37.9 123 20 131/61 (84) 90 Room Air Lab Results: Results Past 24 Hours Test 09/07/16 20:35 09/08/16 06:10 09/08/16 08:10 09/08/16 10:02 Range/Units Urine Color YELLOW Urine Appearance CLOUDY CLEAR Urine pH 5.0 4.5-7.5 Urine Specific Delta 1.018 1.000-1.030 Urine Protein 1+ NEG Urine Glucose (UA) NEG NEG Urine Ketones NEG NEG Urine Occult Blood 3+ NEG Urine Nitrite NEG NEG Urine Bilirubin NEG NEG Urine Urobilinogen NEG NEG Urine Leukocyte Esterase NEG NEG Urine WBC (Auto) 1-5 0-5 /hpf Urine RBC (Auto) >30 0-4 /hpf Urine Hyaline Casts (Auto) 0-5 /lpf Urine Epithelial Cells (Auto) >30 0-5 /lpf Urine Bacteria (Auto) NEG NEG Urine Renal Epithelial Cells 0-5 /lpf Urine Pathogenic Casts 0 /lpf Urine Yeast (Auto) NONE PRSENT Creatinine 0.75 0.78 0.60-1.20 mg/dl Est Creatinine Clear Calc Drug Dose 63.1 60.7 ml/min Estimated GFR () 90.4 86.2 Estimated GFR (Non- 78.0 74.4 White Blood Count 2.46 4.8-10.8 K/uL Red Blood Count 1.99 4.2-5.4 M/uL Hemoglobin 6.0 12.0-16.0 g/dL Hematocrit 17.2 37-47 % Mean Corpuscular Volume 86.4 80-100 fL Mean Corpuscular Hemoglobin 30.2 25-34 pg Mean Corpuscular Hemoglobin Concent 34.9 32-36 g/dl Platelet Count 5 130-400 K/uL Mean Platelet Volume 9.4 7.4-10.4 fL RDW Standard Deviation 58.4 36.4-46.3 fL RDW Coefficient of Variation 18.9 11.5-14.5 % Nucleated RBC Absolute Count (auto) 0.03 0-0 K/uL Neutrophils % (Manual) 71.4 % Lymphocytes % (Manual) 21.7 % Monocytes % (Manual) 2.6 % Metamyelocytes % 1.7 % Myelocytes % 2.6 % Nucleated Red Blood Cells % 1.1 % Neutrophils # (Manual) 1.76 1.4-6.5 K/uL Total Absolute Neutrophils 1.76 1.4-6.5 K/uL Lymphocytes # (Manual) 0.53 1.2-3.4 K/uL Total Absolute Lymphocytes 0.53 1.2-3.4 K/uL Monocytes # (Manual) 0.06 0.11-0.59 K/uL Metamyelocytes # 0.04 0-0 K/uL Myelocytes # 0.06 0-0 K/uL Toxic Vacuolation 3+ Polychromasia 1+ Peripheral Blood Smear Path Consult Sodium Level 138 136-145 mmol/L Potassium Level 3.7 3.5-5.1 mmol/L Chloride Level 102 98-107 mmol/L Carbon Dioxide Level 23 21-32 mmol/L Anion Gap 13.0 3-11 mmol/L Blood Urea Nitrogen 19 7-18 mg/dl BUN/Creatinine Ratio 24.1 10-20 Random Glucose 83 70-99 mg/dl Calcium Level 8.3 8.5-10.1 mg/dl Total Bilirubin 0.9 0.2-1 mg/dl Aspartate Amino Transf (AST/SGOT) 71 15-37 U/L Alanine Aminotransferase (ALT/SGPT) 15 12-78 U/L Alkaline Phosphatase 77 45-117 U/L Total Protein 3.9 6.4-8.2 gm/dl Albumin 1.9 3.4-5.0 gm/dl Globulin 2.0 2.5-4.0 gm/dl Albumin/Globulin Ratio 1.0 0.9-2 Procalcitonin 1.84 0-0.5 ng/ml Test 09/08/16 12:01 09/08/16 15:56 Range/Units Hemoglobin 6.1 12.0-16.0 g/dL Hematocrit 17.9 37-47 % Fibrinogen 345 184-400 mg/dl D-Dimer 630 0-500 ug/L FEU Lactate Dehydrogenase 2524 84-246 U/L Microbiology Results 09/08/16 Fungal Smear, Received Pending 09/08/16 Fungal Culture, Received Pending 09/08/16 MRSA DNA Surveillance Screen - Final, Complete Specimen Negative for MRSA by DNA Probe 09/08/16 C.difficile Toxin B Gene (PCR) - Final, Complete No C. difficile toxin B gene detected 09/08/16 Shiga Toxin Test, Received Pending 09/08/16 Stool Culture, Received Pending 09/07/16 Urine Culture - Preliminary, Resulted NO GROWTH - LESS THAN 1,000 COLONIES/...
[2016-09-08] MEDS: ACETAMINOPHEN 325 MG TAB PO PRN (19:25)
--- NOTE | 2016-09-08 19:52 | HEMATOLOGY CONSULTATION ---
DATE OF CONSULTATION: 09/08/2016 HISTORY OF PRESENT ILLNESS: Mrs. Vargas is a 76-year-old woman recently admitted to [facility] with progressive dyspnea and pancytopenia. I treated her with 4 days of pulse high dose Decadron without any improvement in her platelet count. She was discharged home. She was supposed to be followed up as an outpatient but was readmitted to [facility]. Today her white blood count was 2.46 with 71% neutrophils and possible left shifted white blood cell precursors. Hemoglobin was 6 and platelet count was 5000. She was transfused with platelets in the Emergency Room and then admitted. I spoke with Dr. Gleason earlier today regarding her and recommended transfer to the hematology service at the [facility] in [place]. However, he just called me back and said the morale officer on the inpatient service apparently refused to accept her. I told Dr. Gleason to transfuse her with 2 units of packed red blood cells and an additional unit of apheresis platelets. A daily CBC and differential should be obtained. Her hemoglobin should be kept above 8 grams and platelets transfused if platelet count is less than 10,000 or she is clinically bleeding. 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 I will infuse her with gamma globulin 1 gram per kilogram daily for 2 days in a row to see if there is any improvement in her platelet count. If there is no improvement or her count should deteriorate further, then I will personally call the morale officer on the inpatient service at [facility] and demand transfer. ABDIAS
[2016-09-08] MEDS ORDERED: IBUPROFEN 200 MG TAB PO PRN (21:00)
[2016-09-09] VITALS (36 sets, daily range): BP systolic 99–149; BP diastolic 42–76; PULSE 62–117; TEMP 36.3–37.6; O2SAT 90–98
[2016-09-09 01:13] LABS: HEMATOCRIT 25.1 % (37-47); MEAN CELL VOLUME 86.3 fL (80-100); MEAN CORPUSCULAR HEMOGLOBIN 30.6 pg (25-34); MEAN CORPUSCULAR HGB CONC 35.5 g/dl (32-36); MEAN PLATELET VOLUME 8.6 fL (7.4-10.4); PLATELET COUNT 12 K/uL (130-400); RED BLOOD COUNT 2.91 M/uL (4.2-5.4)
[2016-09-09] MEDS: VANCOMYCIN INJ 1,000 MG in SODIUM CHLORIDE 0.9% 250ML 250 ML IV SCH ×2 (01:15→14:40)
[2016-09-09 01:22] LABS: PLT ESTIMATE SIGNIFIC DECREASED
[2016-09-09] MEDS: PIPERACILL/TAZOBAC IV 3.375 GM in DEXTROSE 5% 100ML 100 ML IV SCH (04:18)
[2016-09-09 06:24] LABS: HEMATOCRIT 29.7 % (37-47); MEAN CELL VOLUME 84.4 fL (80-100); MEAN CORPUSCULAR HEMOGLOBIN 27.8 pg (25-34); MEAN PLATELET VOLUME 8.9 fL (7.4-10.4); PLATELET COUNT 10 K/uL (130-400); RED BLOOD COUNT 3.52 M/uL (4.2-5.4); WHITE BLOOD COUNT 2.81 K/uL (4.8-10.8)
[2016-09-09 06:25] LABS: COMPLETE YES; EOSINOPHIL % 0.9 %; LYMPHOCYTE % 3.5 %; META ABS # 0.05 K/uL (0-0); METAMYELOCYTE % 1.7 %; MYELOCYTE % 2.6 %; NEUTROPHILS % 88.7 %
[2016-09-09 06:26] LABS: BUN/CREATININE RATIO 22.4 (10-20); CALCIUM 7.9 mg/dl (8.5-10.1); CREATININE 0.68 mg/dl (0.60-1.20); MAGNESIUM 1.6 mg/dl (1.8-2.4); PHOSPHORUS 1.8 mg/dl (2.5-4.9); POTASSIUM 3.6 mmol/L (3.5-5.1)
--- NOTE | 2016-09-09 06:44 | Critical Care Progress Note ---
Critical Care Progress Note Date of Service Sep 09, 2016. ICU Day ICU Day Number: [address] Lui Subjective Sleeping comfortably, easily arousable. Denied any pain. No major events overnight. Had a POC glc of 66, asymptomatic, resolved with orange juice. Braulio denied pt transfer from Primary service, pt received 2 units PRBC and 1 unit platelets yesterday Objective General Appearance: other (anasarca) Head: normocephalic Eyes: subconj hemorrhage, other (R sclera hemorrhagic) ENT: normal ear exam Neck: normal range of motion, no stridor, other (R IJ placed 09/08/16) Respiratory: no respiratory distress Cardiovasular: regular rate/rhythm, normal S1S2, no M/G/R, normal peripheral pulses Abdomen: non tender, normal bowel sounds Upper Extremities: edema Lower Extremities: edema Edema: RUE (1+), LUE, Bilateral LE (2+) Neuro: alert, oriented x 3 Current SOFA Score SOFA Score Response (Comments) Value Platelets (x10) < 20 4 Bilirubin (mg/dL) < 1.2 0 Yaneth Coma Score 15 0 Level of Hypotension No Hypotension 0 Creatinine (mg/dL) < 1.2 0 Total 4 Assessment & Plan MARSHALL II SCORE: 19 -> Estimated 22% mortality SCHEDULING ADMINISTRATOR/NEURO: GCS 15 Not in any pain RESP: On 1L NC from 2L yesterday Procal 1.84 CVS: CV Drips: None Rhythm: Sinus EKG 09/08/16: 91bpm, sinus rhythm, QTc 445 ECHO: 08/30/16: LV normal size, EF > 70%, Grade I diastolic dysfunction, mild tricuspid regurg, RV systolic pressure elevated at 40-50mmHg RENAL: Cr 0.68, baseline 0.7, eGFR 74.4 I&O's: Yesterday was +1700mL Weight 68.8kg from 70.4kg Prabhakar present GI/NUTRITION: Eating about 50-70% BM: 4BM yesterday C Diff negative ENDO: 24 hr glc 66-83 No hx of diabetes, not on insulin Continue BSG q6h HEME: Receiving immunoglobulin transfusion per Dr Jordan Hb 9.8 after 2 units PRBC Remains neutropenic and thrombocytopenic Hem/Onc following DVT Prophylaxis: SHAY Stockings, chemical prophylaxis not indicated SKIN/MSK: Petechiae to extremities Monitor for wounds ID: R IJ placed 09/08/[address] Lui Cultures - Blood, Urine obtained 09/07, Fungal added 09/08 - All pending Vancomycin IV day 3 Zosyn day 3 Fluconazole 200mg qAM day 3 CODE STATUS: Confirmed with patient that she is a DO NOT RESUSCITATE / DO NOT INTUBATE DISPO: Remains in ICU Resident Physician Supervision Note: Dr. Tomas was resident physician during care of patient. I separately evaluated patient and did history and exam. I discussed the case with the resident and generally agree with the findings and plan. Heart rate and improvement status post 2 units packed RBCs, will continue antibiotics until blood cultures finalized. I do not believe that she is truly septic at this point and the elevated lactic ptosis is secondary to the malignant process. Continued observation for possible improvement thrombocytopenia secondary to IgG. I have personally spent 35 minutes of critical care time in the direct management of this patient. This is a life/limb threatening event. This includes time spent evaluating patient, direct bedside care, chart review, placing orders, interpretation of diagnostic studies, discussion with consultants, patient, and family members, as well as other required patient management activities. This time is exclusive of all separately billable procedures, and teaching time and separate from and in addition to any other critical care service time. Documented By: Lloyd Lui, MARSHALL II Score Date Score Was Generated: Sep 08, 2016 MARSHALL II Total: 19 Consults & Procedures Consultants: Hem/Onc - Dr Jordan Procedures: R IJ placed 09/08/[address] Lui Data Medications: Current Inpatient Medications Medications (Trade) Dose Ordered Sig/Shiela Route Start Time Stop Time Status Last Admin Dose Admin Acetaminophen (Tylenol Tab) 650 mg Q4H PRN PO 09/06/16 19:15 10/06/16 19:14 09/08/16 19:25 650 MG Polyethylene (Miralax Powder Packet) 17 gm DAILY PRN PO 09/06/16 19:15 10/06/16 19:14 Fluconazole (Diflucan Susp) 200 mg QAM PO 09/07/16 09:00 09/21/16 08:59 09/08/16 12:00 200 MG Ergocalciferol (Vitamin D Cap) 50,000 interunit Q4D PO 09/06/16 22:00 10/20/16 22:01 09/06/16 23:26 50,000 INTERUNIT Ioversol (Optiray 320) 100 ml UD PRN IV 09/07/16 00:15 09/11/16 00:14 Vancomycin HCl 1000 mg/Sodium Chloride 270 ml @ 125 mls/hr Q14H IV 09/08/16 11:00 09/09/16 23:59 09/09/16 01:15 125 MLS/HR Vancomycin HCl (Consult) 1 ea UD PRN N/A 09/07/16 19:15 10/07/16 19:14 Piperacillin Sod/ Tazobactam Sod (Consult) 1 ea UD PRN N/A 09/07/16 19:15 10/07/16 19:14 Piperacillin Sod/ Tazobactam Sod 3.375 gm/Dextrose 115 ml @ 28.75 mls/ hr Q8H IV 09/08/16 20:00 09/10/16 19:59 09/09/16 04:18 28.75 MLS/HR Immune Globulin 10 gm/Empty Bag 100 ml @ 41 mls/hr DAILY@0800 IV 09/09/16 08:00 09/10/16 10:27 Immune Globulin 20 gm/Empty Bag 200 ml @ 41 mls/hr TODAY@0900,1000,1100 IV 09/09/16 09:00 09/10/16 15:53 Ibuprofen (Advil Tab) 400 mg Q6H PRN PO 09/08/16 21:00 10/08/16 20:59 Vital Signs: Date Time Temp Pulse Resp B/P (MAP) Pulse Ox O2 Delivery O2 Flow Rate FiO2 09/09/16 05:47 96 23 113/50 (71) 93 1.0 09/09/16 05:32 98 23 114/47 (69) 95 1.0 09/09/16 05:17 97 20 105/51 (69) 93 1.0 09/09/16 05:02 98 20 110/55 (73) 93 1.0 09/09/16 04:47 99 22 104/51 (68) 93 1.0 09/09/16 04:17 99 19 107/53 (71) 94 1.0 09/09/16 04:02 37.1 99 22 100/45 (63) 93 09/09/16 04:02 37.1 99 22 100/45 (63) 93 1.0 09/09/16 04:00 Nasal Cannula 1.0 09/09/16 03:47 99 22 99/48 (65) 93 09/09/16 03:47 99 22 99/48 (65) 93 1.0 09/09/16 03:32 98 21 100/44 (62) 94 09/09/16 03:32 98 21 100/44 (62) 94 1.0 09/09/16 03:17 90 21 102/42 (62) 94 09/09/16 03:17 90 21 102/42 (62) 94 09/09/16 03:02 91 23 100/44 (62) 94 09/09/16 03:02 91 23 100/44 (62) 94 09/09/16 03:00 89 21 95 09/09/16 02:47 95 22 106/50 (68) 94 09/09/16 02:47 95 22 106/50 (68) 94 09/09/16 02:32 92 23 103/48 (66) 94 09/09/16 02:32 92 23 103/48 (66) 94 09/09/16 02:17 106 22 105/46 (65) 94 09/09/16 02:17 106 22 105/46 (65) 94 09/09/16 02:02 88 22 103/45 (64) 94 09/09/16 02:02 88 22 103/45 (64) 94 09/09/16 02:00 85 22 93 09/09/16 01:47 87 22 104/42 (62) 94 09/09/16 01:32 91 23 102/59 (73) 95 09/09/16 01:32 91 23 102/59 (73) 95 09/09/16 01:17 85 21 103/47 (65) 97 09/09/16 01:17 85 21 103/47 (65) 97 09/09/16 01:05 85 22 136/55 (82) 96 Room Air 09/09/16 01:02 83 20 101/45 (63) 97 09/09/16 01:02 83 20 101/45 (63) 97 Room Air 09/09/16 00:50 37.6 84 21 93 Room Air 09/09/16 00:47 84 20 101/46 (64) 94 09/09/16 00:32 82 21 108/48 (68) 94 09/09/16 00:17 84 21 103/49 (67) 95 09/09/16 00:02 36.5 83 20 102/49 (66) 95 09/08/16 23:59 Nasal Cannula 1.0 09/08/16 23:47 81 20 103/48 (66) 94 09/08/16 23:32 83 20 90/42 (58) 95 09/08/16 23:30 81 20 93 09/08/16 23:17 85 21 100/47 (64) 94 Nasal Cannula 1.0 09/08/16 23:02 36.5 82 19 94/42 (59) 95 Nasal Cannula 1.0 09/08/16 22:47 85 20 106/42 (63) 94 Nasal Cannula 1.0 09/08/16 22:32 36.8 87 20 84/41 (55) 95 Nasal Cannula 1.0 09/08/16 22:17 92 21 105/44 (64) 94 Nasal Cannula 1.0 09/08/16 22:02 36.8 88 20 91/43 (59) 92 Nasal Cannula 1.0 09/08/16 21:47 92 19 96/44 (61) 94 Nasal Cannula 1.0 09/08/16 21:32 37.1 101 20 96/45 (62) 93 Nasal Cannula 1.0 09/08/16 21:18 98 25 95/53 (67) 93 Nasal Cannula 1.0 09/08/16 21:02 38.1 102 24 109/54 (72) 93 Nasal Cannula 1.0 09/08/16 20:57 38.1 108 25 109/61 93 1.0 09/08/16 20:47 98 25 109/61 (77) 93 Nasal Cannula 1.0 09/08/16 20:32 104 24 105/55 (72) 94 Nasal Cannula 1.0 09/08/16 20:17 37.1 103 26 121/68 (85) 94 Nasal Cannula 1.0 09/08/16 20:02 108 26 118/64 (82) 95 Nasal Cannula 1.0 09/08/16 20:00 Nasal Cannula 1.0 09/08/16 19:47 110 27 128/65 (86) 96 Nasal Cannula 1.0 09/08/16 19:32 37.9 107 27 127/62 (83) 97 Nasal Cannula 1.0 17 19:30 107 30 127/62 (83) 97 Nasal Cannula 1.0 /6/17 19:17 106 28 120/56 (77) 95 Nasal Cannula 1.0 17 19:02 109 28 111/55 (73) 94 Nasal Cannula 1.0 /17 18:47 37.6 107 25 108/48 (68) 95 Nasal Cannula 1.0 17 18:45 106 25 94 09/08/17 18:32 109 26 108/49 (68) 95 66/17 18:30 37.4 110 26 93 6/6/17 18:17 108 25 93/44 (60) 94 17 18:15 109 25 93 17 18:02 110 25 103/44 (63) 94 09/08/17 18:00 37.4 110 26 93 09/08/17 17:45 111 25 93 17 17:30 37.2 113 27 94 17 17:15 37.2 113 27 94 09/08/17 17:02 111 28 109/43 (65) 93 17 17:00 37.2 113 27 94 09/08/17 16:02 98 23 101/47 (65) 94 09/08/17 16:00 100 23 95 17 15:02 102 24 106/50 (68) 95 09/08/17 15:00 101 23 94 09/08/17 14:51 93 Nasal Cannula 1.0 09/08/16 14:02 37.2 101 23 100/43 (62) 96 Nasal Cannula 1.0 17 14:00 105 24 95 09/08/17 13:02 99 19 101/38 (59) 97 6/6/17 13:00 101 23 96 09/08/17 12:02 99 22 99/39 (59) 96 09/08/17 12:00 100 24 95 09/08/17 11:02 93 23 90/37 (54) 97 Nasal Cannula 1.0 17 11:00 91 21 95 66/17 10:45 94 21 94 6/17 10:30 95 21 95 09/08/17 10:15 102 21 94 6/6/17 10:02 93 23 91/32 (51) 95 09/08/16 10:00 94 Nasal Cannula 1.0 09/08/16 10:00 102 23 96 09/08/16 09:45 102 23 96 09/08/16 09:40 37.1 96 24 104/45 (64) 95 Nasal Cannula 1.0 09/08/16 09:32 36.9 86 20 96 2.0 09/08/16 09:30 111 09/08/16 09:15 98 09/08/16 09:00 98 09/08/16 08:00 96 Nasal Cannula 2.0 09/08/16 07:11 36.9 86 20 82/44 (57) 99 Nasal Cannula 2.0 Laboratory Results: Last 24 Hours Test 09/08/16 08:10 09/08/16 10:02 09/08/16 12:01 09/08/16 15:56 White Blood Count 2.46 K/uL Red Blood Count 1.99 M/uL Hemoglobin 6.0 g/dL 6.1 g/dL Hematocrit 17.2 % 17.9 % Mean Corpuscular Volume 86.4 fL Mean Corpuscular Hemoglobin 30.2 pg Mean Corpuscular Hemoglobin Concent 34.9 g/dl Platelet Count 5 K/uL Mean Platelet Volume 9.4 fL RDW Standard Deviation 58.4 fL RDW Coefficient of Variation 18.9 % Nucleated RBC Absolute Count (auto) 0.03 K/uL Neutrophils % (Manual) 71.4 % Lymphocytes % (Manual) 21.7 % Monocytes % (Manual) 2.6 % Metamyelocytes % 1.7 % Myelocytes % 2.6 % Nucleated Red Blood Cells % 1.1 % Neutrophils # (Manual) 1.76 K/uL Total Absolute Neutrophils 1.76 K/uL Lymphocytes # (Manual) 0.53 K/uL Total Absolute Lymphocytes 0.53 K/uL Monocytes # (Manual) 0.06 K/uL Metamyelocytes # 0.04 K/uL Myelocytes # 0.06 K/uL Toxic Vacuolation 3+ Polychromasia 1+ Peripheral Blood Smear Path Consult Sodium Level 138 mmol/L Potassium Level 3.7 mmol/L Chloride Level 102 mmol/L Carbon Dioxide Level 23 mmol/L Anion Gap 13.0 mmol/L Blood Urea Nitrogen 19 mg/dl Creatinine 0.78 mg/dl Est Creatinine Clear Calc Drug Dose 60.7 ml/min Estimated GFR () 86.2 Estimated GFR (Non- 74.4 BUN/Creatinine Ratio 24.1 Random Glucose 83 mg/dl Calcium Level 8.3 mg/dl Total Bilirubin 0.9 mg/dl Aspartate Amino Transf (AST/SGOT) 71 U/L Alanine Aminotransferase (ALT/SGPT) 15 U/L Alkaline Phosphatase 77 U/L Total Protein 3.9 gm/dl Albumin 1.9 gm/dl Globulin 2.0 gm/dl Albumin/Globulin Ratio 1.0 Procalcitonin 1.84 ng/ml Fibrinogen 345 mg/dl D-Dimer 630 ug/L FEU Lactate Dehydrogenase 2524 U/L Test 09/08/16 20:58 09/09/16 00:28 09/09/16 00:29 09/09/16 05:33 Bedside Glucose 96 mg/dl 70 mg/dl White Blood Count 2.60 K/uL 2.81 K/uL Red Blood Count 2.91 M/uL 3.52 M/uL Hemoglobin 8.9 g/dL 9.8 g/dL Hematocrit 25.1 % 29.7 % Mean Corpuscular Volume 86.3 fL 84.4 fL Mean Corpuscular Hemoglobin 30.6 pg 27.8 pg Mean Corpuscular Hemoglobin Concent 35.5 g/dl 33.0 g/dl RDW Standard Deviation 50.2 fL 48.8 fL RDW Coefficient of Variation 16.2 % 16.4 % Platelet Count 12 K/uL 10 K/uL Mean Platelet Volume 8.6 fL 8.9 fL Nucleated RBC Absolute Count (auto) 0.03 K/uL 0.04 K/uL Nucleated Red Blood Cells % 1.0 % 1.4 % Platelet Estimate SIGNIFIC DECREASED Neutrophils % (Manual) 88.7 % Lymphocytes % (Manual) 3.5 % Monocytes % (Manual) 2.6 % Eosinophils % (Manual) 0.9 % Metamyelocytes % 1.7 % Myelocytes % 2.6 % Neutrophils # (Manual) 2.49 K/uL Total Absolute Neutrophils 2.49 K/uL Lymphocytes # (Manual) 0.10 K/uL Total Absolute Lymphocytes 0.10 K/uL Monocytes # (Manual) 0.07 K/uL Eosinophils # (Manual) 0.03 K/uL Metamyelocytes # 0.05 K/uL Myelocytes # 0.07 K/uL Sodium Level 137 mmol/L Potassium Level 3.6 mmol/L Chloride Level 102 mmol/L Carbon Dioxide Level 27 mmol/L Anion Gap 8.0 mmol/L Blood Urea Nitrogen 15 mg/dl Creatinine 0.68 mg/dl Est Creatinine Clear Calc Drug Dose 69.6 ml/min Estimated GFR () 99.2 Estimated GFR (Non- 85.6 BUN/Creatinine Ratio 22.4 Random Glucose 66 mg/dl Calcium Level 7.9 mg/dl Phosphorus Level 1.8 mg/dl Magnesium Level 1.6 mg/dl Resident Tracking Resident Involvement: Resident Care Provided Care Provided: Adult Hospital Medicine
[2016-09-09] MEDS ORDERED: SODIUM PHOSPHATE 3 MMOL/1 ML INFUSION IV STA (06:47)
[2016-09-09] MEDS: MAGNESIUM SULFATE 1GM / D5W 1 GM in PREMIXED IN D5W 100 ML IV SCH ×2 (07:26→09:15)
[2016-09-09] MEDS: POTASSIUM CHLR 20 MEQ / WTR 20 MEQ in PREMIXED WATER 100 ML IV SCH ×2 (07:26→09:15)
[2016-09-09] MEDS: IMMUNE GLOBULIN IV SCH ×4 (08:00→14:39)
[2016-09-09] MEDS ORDERED: GAMMAGLOBULIN IV SCH (08:00)
[2016-09-09] MEDS: [UNRECOGNIZED DRUG - OTHER] IV SCH (08:00)
[2016-09-09] MEDS: FLUCONAZOLE SUSP 40 MG/ML 35 ML PO SCH (09:19)
[2016-09-09] MEDS: [UNRECOGNIZED DRUG - OTHER] IV SCH ×3 (09:38→14:39)
[2016-09-09] MEDS ORDERED: SODIUM PHOSPHATE INJ 21 MMOL in SODIUM CHLORIDE 0.9% 500ML 500 ML IV SCH (10:00)
[2016-09-09] MEDS ORDERED: OPTIRAY 320 IV PRN (12:00)
--- NOTE | 2016-09-09 12:46 | DIAGNOSTIC IMAGING REPORT ---
CT ANGIOGRAM OF THE CHEST CLINICAL HISTORY: Chest pain. COMPARISON STUDY: Outside chest CT dated 08/22/2016 TECHNIQUE: Following the IV administration of 93 mL of Optiray-320, CT angiogram of the thorax was performed from the thoracic inlet to the lung bases utilizing the pulmonary embolus protocol. Images are reviewed in the axial, sagittal, and coronal planes. IV contrast was administered without complication. MIP imaging was performed. CT DOSE: 428.50 mGycm FINDINGS: There is upper abdominal ascites. The spleen is partially visualized. It is likely mildly enlarged There are enlarged prevascular lymph nodes similar to the prior study. There is mild subcarinal adenopathy. There are borderline enlarged paratracheal lymph nodes. There is mild supra clavicular adenopathy right greater than left. There was no evidence of thoracic aortic dilatation. There were no pulmonary artery filling defects to indicate acute pulmonary embolism. There are small bilateral pleural effusions left greater than right. There is respiratory artifact. There are dependent atelectatic changes. There is no lobar consolidation. There is persistent tree-in-bud right upper lobe nodularity, likely postinflammatory. There is fluid/edema within the lower lateral chest wall musculature, right greater than left. This finding was described on the recent abdominal CT scan dated 09/07/[address]: [address] evidence of acute pulmonary embolism 2. Small bilateral pleural effusions left greater than right. 3. Stable mediastinal lymphadenopathy 4. Ascites 5. Probable splenomegaly Electronically signed by: Fabricio Long M.D. 09/09/2016 12:45 PM Dictated Date/Time: 09/09/2016 12:38 PM
[2016-09-09] MEDS: AMPICILLIN/SULBACTAM SOD INJ 3,000 MG in SODIUM CHLORIDE 0.9% 100ML 100 ML IV SCH ×3 (13:35→23:47)
[2016-09-09] MEDS ORDERED: VANCOMYCIN TROUGH SCH (14:30)
--- NOTE | 2016-09-09 16:13 | DIAGNOSTIC IMAGING REPORT ---
BILATERAL LOWER EXTREMITY VENOUS DOPPLER CLINICAL HISTORY: Shortness of breath. Thrombocytopenia. COMPARISON STUDY: Bilateral lower extremity venous Doppler September 07, 2016. TECHNIQUE: Sonography of the deep venous system of the bilateral lower extremities was performed. Compression and augmentation were evaluated. FINDINGS: The bilateral common femoral, superficial femoral and popliteal veins were compressible. Augmentation was normal. Flow was shown within the deep calf vessels. Evaluation was difficult due to lower extremity edema. There was a 2.7 x 0.6 x 2.2 cm left popliteal cyst a 4.3 x 0.7 x 1.8 cm right popliteal cyst. IMPRESSION: 1. No evidence of deep venous thrombus within the bilateral lower extremities. 2. Small bilateral popliteal cysts. Electronically signed by: Kelton Garvey M.D. 09/09/2016 4:12 PM Dictated Date/Time: 09/09/2016 4:10 PM
--- NOTE | 2016-09-09 18:09 | Progress Note ---
Internal Med Progress Note Date of Service: Sep 09, 2016. Provider Documentation: SUBJECTIVE: resting comfortably hemodynamics stable says weak and tired sob slightly better no fevers eating some OBJECTIVE: Vital Signs-as noted below Exam: General-alert and awake. Not in distress ENT-Normal hearing Neck-no neck masses, supple Lungs-cta b/l no wheezing or crackles Heart-s1 and s2 heard regular rate and rhythm, no murmurs Abdomen-soft bowel sounds present non tender no distension Extremities-lower extremity edema present no erythema Neuro-alert and awake moves extremities Lab data as noted below. ASSESSMENT & PLAN: 76 yo F with CLL who was recently discharged after treatment for pneumonia and lower platelets who presents with new hypoxia and significant thrombocytopenia 1. SOB with Hypoxia-Hx of CLL. currently saturating ok v/q scan intermediate probability lower extremity Doppler no DVT CXR no acute findings no heparin as platelets are very low Sob could also be from anemia and CLL s/p central line 09/08/16 saturating fine on 2lts close monitor in icu 2. Elevated lactic acid mild temp spike empiric iv zosyn and vanco cx no growth so far hemodynamics stable . Edema- Ct abd/pelvis no obvious lymph or venous obstruction has anasarca low albumin 4. Anemia -multifactorial, chronically low 2/2 bone marrow suppression from chemo and malignancy. Also recently phlebotomized frequently in hospital. No active bleeding at this time. hb dropped to 6.1 s/p two units transfused hb 9.8 today will monitor 4. Thrombocytopenia- s/p three units of platelets transfused so far platelts 10 today managment as per heme/oncology 5. Pancytopenia mostly from chemo and cll heme/onco following if no improvement heme/onco will try to transfer to [place]. 6. Fatigue-25OH checked and she is deficient. TSH, B12, Folate or normal.. 6.Oral Thrush -fluconazole started, sputum culture ordered. 7. CKDIII-at baseline. 8. CLL-denies constitutional symptoms, last chemo was August 12. Oncology consulted and notified 9. Hypothyroidism-TSH normal, . Cont current dose Synthroid. Dvt px scds Disposition Close monitor in ICU Vital Signs: Date Time Temp Pulse Resp B/P (MAP) Pulse Ox O2 Delivery O2 Flow Rate FiO2 09/09/16 16:00 Nasal Cannula 1.0 09/09/16 16:00 36.3 110 26 117/58 (77) 90 1.0 09/09/16 14:00 36.3 107 25 130/54 (79) 91 1.0 09/09/16 12:00 Nasal Cannula 1.0 09/09/16 12:00 36.5 114 28 140/55 (83) 91 1.0 09/09/16 10:00 36.8 107 24 149/76 (100) 97 1.0 09/09/16 08:00 Nasal Cannula 1.0 09/09/16 08:00 36.8 98 24 103/50 (67) 98 1.0 09/09/16 05:47 96 23 113/50 (71) 93 1.0 09/09/16 05:32 98 23 114/47 (69) 95 1.0 09/09/16 05:17 97 20 105/51 (69) 93 1.0 09/09/16 05:02 98 20 110/55 (73) 93 1.0 09/09/16 04:47 99 22 104/51 (68) 93 1.0 09/09/16 04:17 99 19 107/53 (71) 94 1.0 09/09/16 04:02 37.1 99 22 100/45 (63) 93 09/09/16 04:02 37.1 99 22 100/45 (63) 93 1.0 09/09/16 04:00 Nasal Cannula 1.0 09/09/16 03:47 99 22 99/48 (65) 93 09/09/16 03:47 99 22 99/48 (65) 93 1.0 09/09/16 03:32 98 21 100/44 (62) 94 09/09/16 03:32 98 21 100/44 (62) 94 1.0 09/09/16 03:17 90 21 102/42 (62) 94 09/09/16 03:17 90 21 102/42 (62) 94 09/09/16 03:02 91 23 100/44 (62) 94 09/09/16 03:02 91 23 100/44 (62) 94 09/09/16 03:00 89 21 95 09/09/16 02:47 95 22 106/50 (68) 94 09/09/16 02:47 95 22 106/50 (68) 94 09/09/16 02:32 92 23 103/48 (66) 94 09/09/16 02:32 92 23 103/48 (66) 94 09/09/16 02:17 106 22 105/46 (65) 94 09/09/16 02:17 106 22 105/46 (65) 94 09/09/16 02:02 88 22 103/45 (64) 94 09/09/16 02:02 88 22 103/45 (64) 94 09/09/16 02:00 85 22 93 09/09/16 01:47 87 22 104/42 (62) 94 09/09/16 01:32 91 23 102/59 (73) 95 09/09/16 01:32 91 23 102/59 (73) 95 09/09/16 01:17 85 21 103/47 (65) 97 09/09/16 01:17 85 21 103/47 (65) 97 09/09/16 01:05 85 22 136/55 (82) 96 Room Air 09/09/16 01:02 83 20 101/45 (63) 97 09/09/16 01:02 83 20 101/45 (63) 97 Room Air 09/09/16 00:50 37.6 84 21 93 Room Air 09/09/16 00:47 84 20 101/46 (64) 94 09/09/16 00:32 82 21 108/48 (68) 94 09/09/16 00:17 84 21 103/49 (67) 95 09/09/16 00:02 36.5 83 20 102/49 (66) 95 09/08/16 23:59 Nasal Cannula 1.0 09/08/16 23:47 81 20 103/48 (66) 94 09/08/16 23:32 83 20 90/42 (58) 95 09/08/16 23:30 81 20 93 09/08/16 23:17 85 21 100/47 (64) 94 Nasal Cannula 1.0 09/08/16 23:02 36.5 82 19 94/42 (59) 95 Nasal Cannula 1.0 09/08/16 22:47 85 20 106/42 (63) 94 Nasal Cannula 1.0 09/08/16 22:32 36.8 87 20 84/41 (55) 95 Nasal Cannula 1.0 09/08/16 22:17 92 21 105/44 (64) 94 Nasal Cannula 1.0 09/08/16 22:02 36.8 88 20 91/43 (59) 92 Nasal Cannula 1.0 09/08/16 21:47 92 19 96/44 (61) 94 Nasal Cannula 1.0 09/08/16 21:32 37.1 101 20 96/45 (62) 93 Nasal Cannula 1.0 09/08/16 21:18 98 25 95/53 (67) 93 Nasal Cannula 1.0 09/08/16 21:02 38.1 102 24 109/54 (72) 93 Nasal Cannula 1.0 09/08/16 20:57 38.1 108 25 109/61 93 1.0 09/08/16 20:47 98 25 109/61 (77) 93 Nasal Cannula 1.0 09/08/16 20:32 104 24 105/55 (72) 94 Nasal Cannula 1.0 09/08/16 20:17 37.1 103 26 121/68 (85) 94 Nasal Cannula 1.0 09/08/16 20:02 108 26 118/64 (82) 95 Nasal Cannula 1.0 09/08/16 20:00 Nasal Cannula 1.0 09/08/16 19:47 110 27 128/65 (86) 96 Nasal Cannula 1.0 09/08/16 19:32 37.9 107 27 127/62 (83) 97 Nasal Cannula 1.0 09/08/16 19:30 107 30 127/62 (83) 97 Nasal Cannula 1.0 09/08/16 19:17 106 28 120/56 (77) 95 Nasal Cannula 1.0 09/08/16 19:02 109 28 111/55 (73) 94 Nasal Cannula 1.0 09/08/16 18:47 37.6 107 25 108/48 (68) 95 Nasal Cannula 1.0 09/08/16 18:45 106 25 94 09/08/16 18:32 109 26 108/49 (68) 95 09/08/16 18:30 37.4 110 26 93 09/08/16 18:17 108 25 93/44 (60) 94 09/08/16 18:15 109 25 93 Lab Results: Results Past 24 Hours Test 09/08/16 20:58 09/09/16 00:28 09/09/16 00:29 09/09/16 05:33 Range/Units Bedside Glucose 96 70 70-90 mg/dl White Blood Count 2.60 2.81 4.8-10.8 K/uL Red Blood Count 2.91 3.52 4.2-5.4 M/uL Hemoglobin 8.9 9.8 12.0-16.0 g/dL Hematocrit 25.1 29.7 37-47 % Mean Corpuscular Volume 86.3 84.4 80-100 fL Mean Corpuscular Hemoglobin 30.6 27.8 25-34 pg Mean Corpuscular Hemoglobin Concent 35.5 33.0 32-36 g/dl RDW Standard Deviation 50.2 48.8 36.4-46.3 fL RDW Coefficient of Variation 16.2 16.4 11.5-14.5 % Platelet Count 12 10 130-400 K/uL Mean Platelet Volume 8.6 8.9 7.4-10.4 fL Nucleated RBC Absolute Count (auto) 0.03 0.04 0-0 K/uL Nucleated Red Blood Cells % 1.0 1.4 % Platelet Estimate SIGNIFIC DECREASED Neutrophils % (Manual) 88.7 % Lymphocytes % (Manual) 3.5 % Monocytes % (Manual) 2.6 % Eosinophils % (Manual) 0.9 % Metamyelocytes % 1.7 % Myelocytes % 2.6 % Neutrophils # (Manual) 2.49 1.4-6.5 K/uL Total Absolute Neutrophils 2.49 1.4-6.5 K/uL Lymphocytes # (Manual) 0.10 1.2-3.4 K/uL Total Absolute Lymphocytes 0.10 1.2-3.4 K/uL Monocytes # (Manual) 0.07 0.11-0.59 K/uL Eosinophils # (Manual) 0.03 0-0.5 K/uL Metamyelocytes # 0.05 0-0 K/uL Myelocytes # 0.07 0-0 K/uL Sodium Level 137 136-145 mmol/L Potassium Level 3.6 3.5-5.1 mmol/L Chloride Level 102 98-107 mmol/L Carbon Dioxide Level 27 21-32 mmol/L Anion Gap 8.0 3-11 mmol/L Blood Urea Nitrogen 15 7-18 mg/dl Creatinine 0.68 0.60-1.20 mg/dl Est Creatinine Clear Calc Drug Dose 69.6 ml/min Estimated GFR () 99.2 Estimated GFR (Non- 85.6 BUN/Creatinine Ratio 22.4 10-20 Random Glucose 66 70-99 mg/dl Calcium Level 7.9 8.5-10.1 mg/dl Phosphorus Level 1.8 2.5-4.9 mg/dl Magnesium Level 1.6 1.8-2.4 mg/dl Test 09/09/16 09:05 09/09/16 11:29 09/09/16 14:32 09/09/16 17:04 Range/Units Absolute Reticulocyte Count 0.06 0.02-0.10 10^6/uL Percent Reticulocyte Count 2.0 0.5-2.0 % Lactic Acid Level 6.8 0.4-2.0 mmol/L Procalcitonin 1.50 0-0.5 ng/ml Bedside Glucose 76 84 70-90 mg/dl Vancomycin Level Trough 14.1 SEE COMMENT mcg/ml
[2016-09-10] VITALS (31 sets, daily range): BP systolic 95–152; BP diastolic 42–90; PULSE 71–107; TEMP 36.5–37.2; O2SAT 90–98
[2016-09-10] MEDS: VANCOMYCIN INJ 1,000 MG in SODIUM CHLORIDE 0.9% 250ML 250 ML IV SCH ×2 (04:55→20:51)
[2016-09-10] MEDS: AMPICILLIN/SULBACTAM SOD INJ 3,000 MG in SODIUM CHLORIDE 0.9% 100ML 100 ML IV SCH ×3 (05:31→18:29)
[2016-09-10 06:25] LABS: PLATELET COUNT 2 K/uL (130-400)
[2016-09-10 06:35] LABS: HEMATOCRIT 24.5 % (37-47); MEAN CELL VOLUME 84.8 fL (80-100); MEAN CORPUSCULAR HEMOGLOBIN 29.1 pg (25-34); MEAN CORPUSCULAR HGB CONC 34.3 g/dl (32-36); PLT ESTIMATE SIGNIFIC DECREASED; RED BLOOD COUNT 2.89 M/uL (4.2-5.4); WHITE BLOOD COUNT 2.05 K/uL (4.8-10.8)
[2016-09-10 06:53] LABS: BUN/CREATININE RATIO 23.8 (10-20); CALCIUM 7.7 mg/dl (8.5-10.1); CREATININE 0.69 mg/dl (0.60-1.20); MAGNESIUM 1.8 mg/dl (1.8-2.4); POTASSIUM 3.8 mmol/L (3.5-5.1)
[2016-09-10] MEDS ORDERED: METHYLPREDNISOLONE IV 125 MG in SYRINGE 0 ML IV SCH (07:00)
--- NOTE | 2016-09-10 07:44 | Critical Care Progress Note ---
Critical Care Progress Note Date of Service Sep 10, 2016. ICU Day ICU Day Number: [address] Lui Subjective Feels somewhat better, denies any pain. Tachycardia improved, did not receive last dose of immunoglobulin yesterday. Objective General Appearance: other (anasarca) Head: normocephalic Eyes: subconj hemorrhage, other (R sclera hemorrhagic) ENT: normal ear exam Neck: normal range of motion, no stridor, other (R IJ placed 09/08/16) Respiratory: no respiratory distress Cardiovasular: regular rate/rhythm, normal S1S2, no M/G/R, normal peripheral pulses Abdomen: non tender, normal bowel sounds Upper Extremities: edema Lower Extremities: edema Edema: RUE (1+), LUE, Bilateral LE (2+) Neuro: alert, oriented x 3 Current SOFA Score SOFA Score Response (Comments) Value Platelets (x10) < 20 4 Bilirubin (mg/dL) < 1.2 0 [place] Coma Score 15 0 Level of Hypotension No Hypotension 0 Creatinine (mg/dL) < 1.2 0 Total 4 Previous SOFA Scores 4 on 09/10/16 Assessment & Plan 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: GCS 15 Not in any pain RESP: On 2L NC again Repeat procal 1.50 from 1.84 Lactate from 9.3 to 6.8 CVS: CV Drips: None Rhythm: Sinus EKG 09/08/16: 91bpm, sinus rhythm, QTc 445 ECHO: 08/30/16: LV normal size, EF > 70%, Grade I diastolic dysfunction, mild tricuspid regurg, RV systolic pressure elevated at 40-50mmHg RENAL: Cr 0.68, baseline 0.7, eGFR 74.4 I&O's: Yesterday was +800mL, UO 1.08mL/kg/hr Weight 71.5kg, from 70.4kg Prabhakar present GI/NUTRITION: Eating about 50-70% BM: 2 BM yesterday C Diff negative ENDO: 24 hr glc 70-96 No hx of diabetes, not on insulin Continue BSG q6h HEME: Receiving immunoglobulin transfusion per Dr Jordan Hb 8.4 today, was 9.8 after 2 units transfusion Plt count 2 from 10 -> Will transfuse another 1 unit of platelets today - Called [facility] to discuss DVT Prophylaxis: SCDs, chemical prophylaxis not indicated SKIN/MSK: Petechiae to extremities Monitor for wounds ID: R IJ placed 09/08/[address] Lui Cultures - Blood, Urine obtained 09/07, Fungal added 09/08 - All negative so far Downgraded to Vanc, stopped Zosyn Fluconazole 200mg qAM day 4 DISPO: Remains in ICU CODE STATUS: DNR Resident Physician Supervision Note: Dr. Tomas was resident physician during care of patient. I separately evaluated patient and did history and exam. I discussed the case with the resident and generally agree with the findings and plan. Transfusion of platelets to thrombocytopenia, had improved hemodynamics will continue to hold additional packed red blood cells at the present time. We will recheck CBC one hour after platelet transfusion. Attempted to get in touch with Dr. Jordan, I was able to speak briefly with Dr. Hernandez of the hematoma on service, as we discussed the case we will continue the current treatment plan with platelet transfusions continuing the IVIG to assess for a appropriate response. Dr. Hernandez will get in touch with Dr. Jordan so he can formally discuss any interval change and plans with us tomorrow. Procalcitonin elevated today, of unclear significance. Stool culture positive for Lupe albicans transition from Diflucan to caspofungin and converted antibiotics to cefepime, no major risk factors for vancomycin at this time. Blood cultures remain negative. Increased antibiotic coverage due to patient being once again neutropenic. I have personally spent 45 minutes of critical care time in the direct management of this patient. This is a life/limb threatening event. This includes time spent evaluating patient, direct bedside care, chart review, placing orders, interpretation of diagnostic studies, discussion with consultants, patient, and family members, as well as other required patient management activities. This time is exclusive of all separately billable procedures, and teaching time and separate from and in addition to any other critical care service time. Documented By: Lloyd Lui DO [place] Score Date Score Was Generated: Sep 08, 2016 [place] Total: 19 Consults & Procedures Consultants: Hem/Onc - Dr Jordan Procedures: R IJ placed 09/08/[address] Lui Data Medications: Current Inpatient Medications Medications (Trade) Dose Ordered Sig/Shiela Route Start Time Stop Time Status Last Admin Dose Admin Acetaminophen (Tylenol Tab) 650 mg Q4H PRN PO 09/06/16 19:15 10/06/16 19:14 09/08/16 19:25 650 MG Polyethylene (Miralax Powder Packet) 17 gm DAILY PRN PO 09/06/16 19:15 10/06/16 19:14 Fluconazole (Diflucan Susp) 200 mg QAM PO 09/07/16 09:00 09/21/16 08:59 09/09/16 09:19 200 MG Ergocalciferol (Vitamin D Cap) 50,000 interunit Q4D PO 09/06/16 22:00 10/20/16 22:01 09/06/16 23:26 50,000 INTERUNIT Ioversol (Optiray 320) 100 ml UD PRN IV 09/07/16 00:15 09/11/16 00:14 Vancomycin HCl 1000 mg/Sodium Chloride 270 ml @ 125 mls/hr Q14H IV 09/08/16 11:00 09/11/16 10:59 09/10/16 04:55 125 MLS/HR Vancomycin HCl (Consult) 1 ea UD PRN N/A 09/07/16 19:15 10/07/16 19:14 Immune Globulin 10 gm/Empty Bag 100 ml @ 41 mls/hr DAILY@0800 IV 09/09/16 08:00 09/10/16 10:27 09/09/16 08:00 41 MLS/HR Immune Globulin 20 gm/Empty Bag 200 ml @ 41 mls/hr TODAY@0900,1000,1100 IV 09/09/16 09:00 09/10/16 15:53 09/09/16 11:14 41 MLS/HR Ibuprofen (Advil Tab) 400 mg Q6H PRN PO 09/08/16 21:00 10/08/16 20:59 Ampicillin Sodium/ Sulbactam Sodium 3000 mg/Sodium Chloride 108 ml @ 216 mls/hr Q6H IV 09/09/16 12:00 09/11/16 11:59 09/10/16 05:31 216 MLS/HR Ioversol (Optiray 320) 125 ml UD PRN IV 09/09/16 12:00 09/13/16 11:59 Methylprednisolone Sodium Succinate 125 mg/Syringe 2 ml @ 1.5 mls/min PRE-TREAT IV 09/10/16 07:00 09/10/16 16:00 Vital Signs: Date Time Temp Pulse Resp B/P (MAP) Pulse Ox O2 Delivery O2 Flow Rate FiO2 09/10/16 06:02 97 22 100/43 (62) 96 09/10/16 05:02 106 27 123/48 (73) 94 09/10/16 04:02 100 24 111/48 (69) 93 09/10/16 04:00 93 Nasal Cannula 2.0 09/10/16 03:02 107 24 96/45 (62) 93 09/10/16 03:02 36.7 107 24 96/45 (62) 93 Nasal Cannula 2.0 09/10/16 02:02 107 24 102/51 (68) 93 09/10/16 02:02 107 24 102/51 (68) 93 09/10/16 02:00 107 23 92 09/10/16 01:02 102 26 98/49 (65) 94 09/10/16 01:02 102 26 98/49 (65) 94 09/10/16 00:02 103 23 110/49 (69) 94 09/10/16 00:02 103 23 110/49 (69) 94 09/10/16 00:01 37.2 106 24 110/49 (69) 93 Nasal Cannula 2.0 09/10/16 00:00 104 23 93 09/09/16 23:59 93 Nasal Cannula 2.0 09/09/16 22:00 117 29 129/66 (87) 92 Nasal Cannula 2.0 09/09/16 20:00 37.2 113 24 112/59 (76) 93 Nasal Cannula 2.0 09/09/16 20:00 93 Nasal Cannula 2.0 09/09/16 18:00 36.3 108 27 100/56 (71) 94 2.0 09/09/16 16:00 Nasal Cannula 1.0 09/09/16 16:00 36.3 110 26 117/58 (77) 90 1.0 09/09/16 14:00 36.3 107 25 130/54 (79) 91 1.0 09/09/16 12:00 Nasal Cannula 1.0 09/09/16 12:00 36.5 114 28 140/55 (83) 91 1.0 09/09/16 10:00 36.8 107 24 149/76 (100) 97 1.0 09/09/16 08:00 Nasal Cannula 1.0 09/09/16 08:00 36.8 98 24 103/50 (67) 98 1.0 Laboratory Results: Last 24 Hours Test 09/09/16 09:05 09/09/16 11:29 09/09/16 14:32 09/09/16 17:04 Absolute Reticulocyte Count 0.06 10^6/uL Percent Reticulocyte Count 2.0 % Lactic Acid Level 6.8 mmol/L Procalcitonin 1.50 ng/ml Bedside Glucose 76 mg/dl 84 mg/dl Vancomycin Level Trough 14.1 mcg/ml Test 09/09/16 20:47 09/10/16 05:49 Bedside Glucose 96 mg/dl White Blood Count 2.05 K/uL Red Blood Count 2.89 M/uL Hemoglobin 8.4 g/dL Hematocrit 24.5 % Mean Corpuscular Volume 84.8 fL Mean Corpuscular Hemoglobin 29.1 pg Mean Corpuscular Hemoglobin Concent 34.3 g/dl RDW Standard Deviation 51.6 fL RDW Coefficient of Variation 17.2 % Platelet Count 2 K/uL Nucleated RBC Absolute Count (auto) 0.04 K/uL Nucleated Red Blood Cells % 1.8 % Platelet Estimate SIGNIFIC DECREASED Sodium Level 137 mmol/L Potassium Level 3.8 mmol/L Chloride Level 102 mmol/L Carbon Dioxide Level 24 mmol/L Anion Gap 11.0 mmol/L Blood Urea Nitrogen 16 mg/dl Creatinine 0.69 mg/dl Est Creatinine Clear Calc Drug Dose 69.8 ml/min Estimated GFR () 98.7 Estimated GFR (Non- 85.2 BUN/Creatinine Ratio 23.8 Random Glucose 62 mg/dl Calcium Level 7.7 mg/dl Phosphorus Level 2.0 mg/dl Magnesium Level 1.8 mg/dl Resident Tracking Resident Involvement: Resident Care Provided Care Provided: Adult Hospital Medicine (ICU)
[2016-09-10] MEDS: [UNRECOGNIZED DRUG - OTHER] IV SCH (08:05)
[2016-09-10] MEDS: IMMUNE GLOBULIN IV SCH ×4 (08:05→11:41)
[2016-09-10] MEDS ORDERED: METOPROLOL TARTRATE 1 MG/ML VIAL IV SCH (09:00)
[2016-09-10] MEDS ORDERED: POTASSIUM PHOSPHATE INJ 18 MMOL in SODIUM CHLORIDE 0.9% 500ML 500 ML IV SCH (09:00)
[2016-09-10] MEDS: [UNRECOGNIZED DRUG - OTHER] IV SCH ×3 (09:30→11:41)
[2016-09-10] MEDS: MAGNESIUM OXIDE 400 MG TAB PO SCH ×2 (09:30→20:32)
--- NOTE | 2016-09-10 10:11 | Pharmacy Progress Note ---
Pharmacy Abx Dose Short Note Date of Service Sep 10, 2016. Assessment & Plan Assessment 76 year old female receiving vancomycin and ampicillin/sulbactam for empiric treatment. Day # 4 of antimicrobial therapy Cultures are negative to date Procalcitonin trending down and will be repeated later today Afebrile for >24 hours Plan * Continue antibiotics until blood culture FINALIZES since patient is neutropenic and critically ill. Vancomycin: * Trough level of 14.1 mcg/mL is near-therapeutic * drawn prior to steady state, may further increase as steady state is reached * Continue dose of 1000 mg IV every 14 hours and repeat trough * Goal trough level: 15 to 20 mcg/mL * Trough level ordered for: 09/10/16 prior to 19:00 Ampicillin/Sulbactam: * Continue 3000mg IV every 6 hours * no renal dose adjustment needed Pharmacy will continue to follow and will adjust dose/frequency as necessary. Thank you.
[2016-09-10] MEDS ORDERED: ACETAMINOPHEN IV 100 ML IV PRN (16:15)
[2016-09-10] MEDS ORDERED: HYDROmorphone INJ 1 MG/ML SYR IV PRN (16:15)
[2016-09-10] MEDS ORDERED: HYDROmorphone INJ 0.5 MG/0.5 ML SYR IV PRN (16:15)
[2016-09-10] MEDS ORDERED: NURSING VERBAL MED ORDER ONE (16:30)
[2016-09-10 16:51] LABS: HEMATOCRIT 23.3 % (37-47); MEAN CELL VOLUME 85.7 fL (80-100); MEAN CORPUSCULAR HEMOGLOBIN 28.7 pg (25-34); MEAN CORPUSCULAR HGB CONC 33.5 g/dl (32-36); RED BLOOD COUNT 2.72 M/uL (4.2-5.4); WHITE BLOOD COUNT 1.79 K/uL (4.8-10.8)
[2016-09-10 17:32] LABS: ANISOCYTOSIS PRESENT; HYPOCHROMIA PRESENT; SMUDGE CELLS PRESENT; TOXIC GRANULATION 1+; VACUOLIZATION 1+
[2016-09-10 17:38] LABS: PLATELET COUNT 7 K/uL (130-400)
[2016-09-10 17:42] LABS: BASO ABS # 0.06 K/uL (0-0.2); BASOPHIL % 3.4 %; COMPLETE YES; LYMPH ABS # 0.71 K/uL (1.2-3.4); LYMPHOCYTE % 39.7 %; META ABS # 0.03 K/uL (0-0); METAMYELOCYTE % 1.7 %; MYELOCYTE % 1.7 %; NEUTROPHILS % 51.8 %
[2016-09-10] MEDS ORDERED: VANCOMYCIN TROUGH SCH (18:30)
--- NOTE | 2016-09-10 18:30 | Progress Note ---
Internal Med Progress Note Date of Service: Sep 10, 2016. Provider Documentation: SUBJECTIVE: feeling same appetite not great still has diarrhea afebrile sob some what better OBJECTIVE: Vital Signs-as noted below Exam: General-alert and awake. Not in distress ENT-Normal hearing Neck-no neck masses, supple Lungs-cta b/l no wheezing or crackles Heart-s1 and s2 heard regular rate and rhythm, no murmurs Abdomen-soft bowel sounds present non tender no distension Extremities-lower extremity edema present no erythema Neuro-alert and awake moves extremities Lab data as noted below. ASSESSMENT & PLAN: 76 yo F with CLL who was recently discharged after treatment for pneumonia and lower platelets who presents with new hypoxia and significant thrombocytopenia 1. SOB with Hypoxia-Hx of CLL. currently saturating ok v/q scan intermediate probability lower extremity Doppler no DVT CXR no acute findings no heparin as platelets are very low Sob could also be from anemia and CLL s/p central line 09/08/16 saturating fine on 2lts close monitor in icu stable currently 2. Elevated lactic acid mild temp spike empiric iv zosyn and vanco cx no growth so far zosyn changed to unasyn hemodynamics stable . Edema- Ct abd/pelvis no obvious lymph or venous obstruction has anasarca low albumin 4. Anemia -multifactorial, chronically low 2/2 bone marrow suppression from chemo and malignancy. Also recently phlebotomized frequently in hospital. No active bleeding at this time. hb dropped to 6.1 s/p two units transfused hb trending down again will monitor 4. Thrombocytopenia- s/p three units of platelets transfused so far platelts again 2 today and transfused one more unit of platelets and came up to 7 management as per heme/oncology 5. Pancytopenia mostly from chemo and cll heme/onco following if no improvement heme/onco will try to transfer to [place]. 6. Fatigue-25OH checked and she is deficient. TSH, B12, Folate or normal.. 6.Oral Thrush -fluconazole started, sputum culture ordered. 7. CKDIII-at baseline. 8. CLL-denies constitutional symptoms, last chemo was August 12. Oncology consulted and notified 9. Hypothyroidism-TSH normal, . Cont current dose Synthroid. Dvt px scds Disposition Close monitor in ICU Vital Signs: Date Time Temp Pulse Resp B/P (MAP) Pulse Ox O2 Delivery O2 Flow Rate FiO2 09/10/16 18:26 36.5 78 16 106/90 96 09/10/16 17:02 80 22 127/71 (89) 97 Nasal Cannula 2.0 09/10/16 16:02 71 20 98/46 (63) 96 Nasal Cannula 2.0 09/10/16 16:00 Nasal Cannula 2.0 09/10/16 15:02 36.7 74 19 101/48 (65) 96 Nasal Cannula 2.0 09/10/16 14:02 79 21 115/63 (80) 95 Nasal Cannula 2.0 09/10/16 13:02 79 21 98/42 (60) 95 Nasal Cannula 2.0 09/10/16 12:00 36.5 82 22 110/76 (87) 94 Nasal Cannula 2.0 09/10/16 12:00 Nasal Cannula 2.0 09/10/16 11:00 36.5 73 21 100/60 95 2.0 09/10/16 10:15 36.9 80 23 96/58 90 2.0 09/10/16 10:00 36.9 85 24 95/51 95 09/10/16 10:00 36.9 85 24 95/51 (66) 95 Nasal Cannula 2.0 09/10/16 09:38 102 09/10/16 08:00 36.5 107 25 114/67 (83) 94 Nasal Cannula 2.0 09/10/16 08:00 Nasal Cannula 2.0 09/10/16 06:02 97 22 100/43 (62) 96 09/10/16 05:02 106 27 123/48 (73) 94 09/10/16 04:02 100 24 111/48 (69) 93 09/10/16 04:00 93 Nasal Cannula 2.0 09/10/16 03:02 107 24 96/45 (62) 93 09/10/16 03:02 36.7 107 24 96/45 (62) 93 Nasal Cannula 2.0 09/10/16 02:02 107 24 102/51 (68) 93 09/10/16 02:02 107 24 102/51 (68) 93 09/10/16 02:00 107 23 92 09/10/16 01:02 102 26 98/49 (65) 94 09/10/16 01:02 102 26 98/49 (65) 94 09/10/16 00:02 103 23 110/49 (69) 94 09/10/16 00:02 103 23 110/49 (69) 94 09/10/16 00:01 37.2 106 24 110/49 (69) 93 Nasal Cannula 2.0 09/10/16 00:00 104 23 93 09/09/16 23:59 93 Nasal Cannula 2.0 09/09/16 22:00 117 29 129/66 (87) 92 Nasal Cannula 2.0 09/09/16 20:00 37.2 113 24 112/59 (76) 93 Nasal Cannula 2.0 09/09/16 20:00 93 Nasal Cannula 2.0 Lab Results: Results Past 24 Hours Test 09/09/16 20:47 09/10/16 05:49 09/10/16 16:14 Range/Units Bedside Glucose 96 70-90 mg/dl White Blood Count 2.05 1.79 4.8-10.8 K/uL Red Blood Count 2.89 2.72 4.2-5.4 M/uL Hemoglobin 8.4 7.8 12.0-16.0 g/dL Hematocrit 24.5 23.3 37-47 % Mean Corpuscular Volume 84.8 85.7 80-100 fL Mean Corpuscular Hemoglobin 29.1 28.7 25-34 pg Mean Corpuscular Hemoglobin Concent 34.3 33.5 32-36 g/dl RDW Standard Deviation 51.6 54.2 36.4-46.3 fL RDW Coefficient of Variation 17.2 17.6 11.5-14.5 % Platelet Count 2 7 130-400 K/uL Nucleated RBC Absolute Count (auto) 0.04 0.02 0-0 K/uL Nucleated Red Blood Cells % 1.8 1.1 % Platelet Estimate SIGNIFIC DECREASED Sodium Level 137 136-145 mmol/L Potassium Level 3.8 3.5-5.1 mmol/L Chloride Level 102 98-107 mmol/L Carbon Dioxide Level 24 21-32 mmol/L Anion Gap 11.0 3-11 mmol/L Blood Urea Nitrogen 16 7-18 mg/dl Creatinine 0.69 0.60-1.20 mg/dl Est Creatinine Clear Calc Drug Dose 69.8 ml/min Estimated GFR () 98.7 Estimated GFR (Non- 85.2 BUN/Creatinine Ratio 23.8 10-20 Random Glucose 62 70-99 mg/dl Calcium Level 7.7 8.5-10.1 mg/dl Phosphorus Level 2.0 2.5-4.9 mg/dl Magnesium Level 1.8 1.8-2.4 mg/dl Mean Platelet Volume 9.0 7.4-10.4 fL Neutrophils % (Manual) 51.8 % Lymphocytes % (Manual) 39.7 % Monocytes % (Manual) 1.7 % Basophils % (Manual) 3.4 % Metamyelocytes % 1.7 % Myelocytes % 1.7 % Neutrophils # (Manual) 0.93 1.4-6.5 K/uL Total Absolute Neutrophils 0.93 1.4-6.5 K/uL Lymphocytes # (Manual) 0.71 1.2-3.4 K/uL Total Absolute Lymphocytes 0.71 1.2-3.4 K/uL Monocytes # (Manual) 0.03 0.11-0.59 K/uL Basophils # (Manual) 0.06 0-0.2 K/uL Metamyelocytes # 0.03 0-0 K/uL Myelocytes # 0.03 0-0 K/uL [place] Cells PRESENT Toxic Granulation 1+ Toxic Vacuolation 1+ Hypochromasia PRESENT Anisocytosis PRESENT Lactic Acid Level 7.9 0.4-2.0 mmol/L Procalcitonin 2.47 0-0.5 ng/ml
[2016-09-10] MEDS ORDERED: CASPOFUNGIN INJ 70 MG in SODIUM CHLORIDE 0.9% 250ML 250 ML IV ONE (19:40)
[2016-09-10] MEDS: CEFEPIME IV 2,000 MG in DEXTROSE 5% 100ML 100 ML IV SCH (20:02)
[2016-09-10] MEDS: ERGOCALCIFEROL 50,000 INTER.UNIT CAP PO SCH (20:33)
[2016-09-10] MEDS: ACETAMINOPHEN 325 MG TAB PO PRN (20:33)
[2016-09-10 21:11] LABS: PLATELET COUNT 15 K/uL (130-400)
[2016-09-10] MEDS: FAMOTIDINE IV INJ 20 MG in DEXTROSE 5% 100ML 100 ML IV SCH (22:42)
[2016-09-11] VITALS (14 sets, daily range): BP systolic 128–154; BP diastolic 73–102; PULSE 65–93; TEMP 36.4–36.7; O2SAT 92–97
[2016-09-11] MEDS: CEFEPIME IV 2,000 MG in DEXTROSE 5% 100ML 100 ML IV SCH ×2 (03:55→12:20)
[2016-09-11 06:01] LABS: PLATELET COUNT 12 K/uL (130-400)
[2016-09-11 06:02] LABS: MEAN CELL VOLUME 84.7 fL (80-100); MEAN PLATELET VOLUME 10.2 fL (7.4-10.4); RED BLOOD COUNT 3.54 M/uL (4.2-5.4); WHITE BLOOD COUNT 2.88 K/uL (4.8-10.8)
[2016-09-11 06:16] LABS: BUN/CREATININE RATIO 25.4 (10-20); CALCIUM 8.1 mg/dl (8.5-10.1); CREATININE 0.7 mg/dl (0.60-1.20); MAGNESIUM 1.9 mg/dl (1.8-2.4); POTASSIUM 4.1 mmol/L (3.5-5.1)
[2016-09-11 06:21] LABS: PHOSPHORUS 2.2 mg/dl (2.5-4.9)
[2016-09-11 06:35] LABS: COMPLETE YES; EOSINOPHIL % 0.9 %; LARGE GRANULAR LYMPH ABSOLUTE 0.53 K/uL; LARGE GRANULAR LYMPHOCYTE % 18.3 %; LYMPH ABS # 0.28 K/uL (1.2-3.4); LYMPHOCYTE % 9.6 %; META ABS # 0.03 K/uL (0-0); METAMYELOCYTE % 0.9 %; NEUTROPHILS % 70.3 %; PLT ESTIMATE SIGNIFIC DECREASED
[2016-09-11] MEDS ORDERED: SODIUM PHOSPHATE 3 MMOL/1 ML INFUSION IV STA (06:37)
[2016-09-11] MEDS ORDERED: SODIUM PHOSPHATE INJ 15 MMOL in SODIUM CHLORIDE 0.9% 250ML 250 ML IV SCH (07:00)
[2016-09-11] MEDS ORDERED: LEVOTHYROXINE 50 MCG TAB PO SCH (08:30)
[2016-09-11] MEDS ORDERED: VANCOMYCIN INJ 1,000 MG in SODIUM CHLORIDE 0.9% 250ML 250 ML IV SCH (09:00)
[2016-09-11] MEDS: MAGNESIUM OXIDE 400 MG TAB PO SCH (09:07)
--- NOTE | 2016-09-11 09:30 | Pharmacy Progress Note ---
Pharmacy Abx Dose Progress Nt Date of Service Sep 11, 2016. Pharmacy Dosing Scope The patient is currently receiving the following antimicrobial agents: * vancomycin * cefepime * caspofungin Objective Height (Feet): 5 Height (Inches): 5.00 Weight (Kilograms): 72.900 Vital Signs (Past 12Hrs) Vital Signs Past 12 Hours Date Time Temp Pulse Resp B/P (MAP) Pulse Ox O2 Delivery O2 Flow Rate FiO2 09/11/16 08:00 36.7 88 19 136/88 (104) 95 Nasal Cannula 2.0 09/11/16 06:00 77 20 128/84 (99) 95 Nasal Cannula 2.0 09/11/16 05:00 82 21 154/81 (105) 96 Nasal Cannula 2.0 09/11/16 04:00 Nasal Cannula 2.0 09/11/16 04:00 36.7 78 19 153/78 (103) 97 Nasal Cannula 2.0 09/11/16 03:00 73 19 144/84 (104) 97 Nasal Cannula 2.0 09/11/16 02:00 77 20 146/73 (97) 97 Nasal Cannula 2.0 09/11/16 01:00 67 19 152/74 (100) 96 Nasal Cannula 2.0 09/11/16 00:00 Nasal Cannula 2.0 09/11/16 00:00 36.6 80 19 152/74 (100) 96 Nasal Cannula 2.0 09/10/16 23:00 75 21 152/71 (98) 95 Nasal Cannula 2.0 09/10/16 22:00 79 22 144/74 (97) 96 Nasal Cannula 2.0 Lab Results (24Hrs) Test 09/10/16 16:14 09/10/16 19:30 09/10/16 20:50 09/11/16 00:46 White Blood Count 1.79 K/uL (4.8-10.8) Red Blood Count 2.72 M/uL (4.2-5.4) Hemoglobin 7.8 g/dL (12.0-16.0) Hematocrit 23.3 % (37-47) Mean Corpuscular Volume 85.7 fL (80-100) Mean Corpuscular Hemoglobin 28.7 pg (25-34) Mean Corpuscular Hemoglobin Concent 33.5 g/dl (32-36) Platelet Count 7 K/uL (130-400) 15 K/uL (130-400) Mean Platelet Volume 9.0 fL (7.4-10.4) RDW Standard Deviation 54.2 fL (36.4-46.3) RDW Coefficient of Variation 17.6 % (11.5-14.5) Nucleated RBC Absolute Count (auto) 0.02 K/uL (0-0) Neutrophils % (Manual) 51.8 % Lymphocytes % (Manual) 39.7 % Monocytes % (Manual) 1.7 % Basophils % (Manual) 3.4 % Metamyelocytes % 1.7 % Myelocytes % 1.7 % Nucleated Red Blood Cells % 1.1 % Neutrophils # (Manual) 0.93 K/uL (1.4-6.5) Total Absolute Neutrophils 0.93 K/uL (1.4-6.5) Lymphocytes # (Manual) 0.71 K/uL (1.2-3.4) Total Absolute Lymphocytes 0.71 K/uL (1.2-3.4) Monocytes # (Manual) 0.03 K/uL (0.11-0.59) Basophils # (Manual) 0.06 K/uL (0-0.2) Metamyelocytes # 0.03 K/uL (0-0) Myelocytes # 0.03 K/uL (0-0) Smudge Cells PRESENT Toxic Granulation 1+ Toxic Vacuolation 1+ Hypochromasia PRESENT Anisocytosis PRESENT Lactic Acid Level 7.9 mmol/L (0.4-2.0) Procalcitonin 2.47 ng/ml (0-0.5) Stool Occult Blood POSITIVE (NEGATIVE) Vancomycin Level Trough 11.1 mcg/ml (SEE COMMENT) Bedside Glucose 168 mg/dl (70-90) Test 09/11/16 05:25 09/11/16 08:54 White Blood Count 2.88 K/uL (4.8-10.8) Red Blood Count 3.54 M/uL (4.2-5.4) Hemoglobin 9.9 g/dL (12.0-16.0) Hematocrit 30.0 % (37-47) Mean Corpuscular Volume 84.7 fL (80-100) Mean Corpuscular Hemoglobin 28.0 pg (25-34) Mean Corpuscular Hemoglobin Concent 33.0 g/dl (32-36) Platelet Count 12 K/uL (130-400) Mean Platelet Volume 10.2 fL (7.4-10.4) RDW Standard Deviation 52.3 fL (36.4-46.3) RDW Coefficient of Variation 17.3 % (11.5-14.5) Nucleated RBC Absolute Count (auto) 0.04 K/uL (0-0) Neutrophils % (Manual) 70.3 % Lymphocytes % (Manual) 9.6 % Eosinophils % (Manual) 0.9 % Metamyelocytes % 0.9 % Nucleated Red Blood Cells % 1.4 % Neutrophils # (Manual) 2.02 K/uL (1.4-6.5) Total Absolute Neutrophils 2.02 K/uL (1.4-6.5) Lymphocytes # (Manual) 0.28 K/uL (1.2-3.4) Total Absolute Lymphocytes 0.80 K/uL (1.2-3.4) Eosinophils # (Manual) 0.03 K/uL (0-0.5) Metamyelocytes # 0.03 K/uL (0-0) Percent Large Granular Lymphocytes 18.3 % Absolute Large Granular Lymphocytes 0.53 K/uL Platelet Estimate SIGNIFIC DECREASED Sodium Level 137 mmol/L (136-145) Potassium Level 4.1 mmol/L (3.5-5.1) Chloride Level 103 mmol/L (98-107) Carbon Dioxide Level 23 mmol/L (21-32) Anion Gap 11.0 mmol/L (3-11) Blood Urea Nitrogen 18 mg/dl (7-18) Creatinine 0.70 mg/dl (0.60-1.20) Est Creatinine Clear Calc Drug Dose 68.8 ml/min Estimated GFR () 98.2 Estimated GFR (Non- 84.8 BUN/Creatinine Ratio 25.4 (10-20) Random Glucose 147 mg/dl (70-99) Lactic Acid Level 7.2 mmol/L (0.4-2.0) Calcium Level 8.1 mg/dl (8.5-10.1) Phosphorus Level 2.2 mg/dl (2.5-4.9) Magnesium Level 1.9 mg/dl (1.8-2.4) Free Thyroxine 0.79 ng/dl (0.80-1.60) Micro Results Date/Time Source Procedure Growth Status 09/08/16 11:30 Blood Fungal Smear - Final Resulted 09/08/16 11:30 Blood Fungal Culture Pending Resulted 09/07/16 19:03 Blood Blood Culture - Preliminary NO GROWTH TO DATE. Resulted 09/07/16 19:00 Blood Blood Culture - Preliminary NO GROWTH TO DATE. Resulted 09/08/16 09:40 Nasal MRSA DNA Surveillance Screen - Final Specimen Negative for MRSA by DNA Probe Complete 09/08/16 15:20 Stool C.difficile Toxin B Gene (PCR) - Final No C. difficile toxin B gene detected Complete 09/08/16 15:20 Stool Shiga Toxin Test - Final Complete 09/08/16 15:20 Stool Culture - Final Lupe Albicans Complete 09/07/16 20:35 Urine , Clean Catch Urine Culture - Final NO GROWTH - LESS THAN 1,000 COLONIES/ML Complete Risk Factors for Resistance * Hospitalization for 48 hours or more within the past 90 days * Current hospitalization > 5 days * Immunocompromised (recent chemo in August 2016) * Antimicrobial use within the last 90 days: * Levaquin in August for PNA Assessment & Plan Assessment * 76 year old female receiving antibiotics and antifungals for febrile neutropenia (? pneumonia, ? lupe infection) * vancomycin, Zosyn and fluconazole from 09/07-09/09 * vancomycin, Unasyn and fluconazole from 09/09-09/10 * vancomycin, cefepime and caspofungin from 09/10 Plan Vancomycin IV * Trough level of 11.1 mcg/mL is subtherapeutic * drawn 2 hours late (however I suspect that it would have been sub-therapeutic , regardless * Change to Vancomycin 1000 mg IV every 12 hours * Goal trough level for neutropenic fever: 15 to 20 mcg/mL * Trough level ordered for: 09/12/16 prior to the 09:00 dose Cefepime: * 2000mg IV every 8 hours * no renal dose adjustment needed for CrCl above 60mL/min * Broadened coverage (from Unasyn) to provide better gram-negative coverage Caspofungin: * 70mg IV x1 dose (09/10), then 50mg IV daily * no hepatic disease noted in H&P to warrant dose reduction * for treatment of C. albicans in stool Duration: * If at 5 days, the patient has had no growth and remains afebrile, may consider discontinuation of ABX therapy. Pharmacy will continue to follow and will adjust dose/frequency as necessary. Thank you.
--- NOTE | 2016-09-11 10:08 | Critical Care Progress Note ---
Critical Care Progress Note Date of Service Sep 11, 2016. ICU Day ICU Day Number: [address] Lui Subjective [place] well, denied any concerns. Appetite is better. Objective General Appearance: other (anasarca) Head: normocephalic Eyes: Normal Neck: normal range of motion, no stridor, other (R IJ placed 09/08/16) Respiratory: no respiratory distress Cardiovasular: regular rate/rhythm, normal S1S2, no M/G/R, normal peripheral pulses Abdomen: non tender, normal bowel sounds Upper Extremities: edema Lower Extremities: edema Edema: RUE (1+), LUE, Bilateral LE (2+) Neuro: alert, oriented x 3 Current SOFA Score SOFA Score Response (Comments) Value Platelets (x10) < 20 4 Bilirubin (mg/dL) < 1.2 0 Oh[place]man Coma Score 15 0 Level of Hypotension No Hypotension 0 Creatinine (mg/dL) < 1.2 0 Total 4 Previous SOFA Scores 4 on 09/10/16 Assessment & Plan [employer]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 Not in any pain RESP: On 2L NC again Procal had increased from 1.5 to 2.4 Will obtain another today, and daily from now on Lactate 7.2, previously 7.9 CVS: CV Drips: None Rhythm: Sinus EKG 09/08/16: 91bpm, sinus rhythm, QTc 445 ECHO: 08/30/16: LV normal size, EF > 70%, Grade I diastolic dysfunction, mild tricuspid regurg, RV systolic pressure elevated at 40-50mmHg RENAL: Cr 0.68, baseline 0.7, eGFR 74.4 I&O's: Cumulative +4000mL Weight 71.5kg, from 70.4kg Prabhakar present GI/NUTRITION: Appetite improving BM: 1 BM yesterday C Diff negative ENDO: 24 hr glc 70-96 No hx of diabetes, not on insulin Continue BSG q6h HEME: Received last immunoglobulin transfusion per Dr Jordan Hb 9.9 today, was 8.4 yesterday Further plt transfusion yesterday, now 12 DVT Prophylaxis: SCDs, chemical prophylaxis not indicated SKIN/MSK: Petechiae to extremities Monitor for wounds ID: R IJ placed 09/08/[address] Lui Cultures - Blood, Urine obtained 09/07, Fungal added 09/08 Stool has Lupe Albicans Downgraded to Vanc, stopped Zosyn Abx: Vancomycin, Cefepime, Caspofungin DISPO: Remains in ICU CODE STATUS: DNR Resident Physician Supervision Note: Dr. Martini was resident physician during care of patient. I separately evaluated patient and did history and exam. I discussed the case with the resident and generally agree with the findings and plan. Patient initially admitted for febrile neutropenia, no source identified. Started on Zosyn, escalated to Unasyn. However an interim procalcitonin continued increase patient was tachycardic unclear of significance, antibiotics expanded to cefepime, with findings of candidiasis from stool started on Gerardo function over Diflucan. Patient's lactic acid remains elevated, however I do not feel that this is evidence of global hyperperfusion secondary to an infectious etiology, however patient is at risk and I will continue the current antibiotic coverage. I discussed this case briefly with Dr. Jordan who was attempting to secure transfer to [facility] for further evaluation and management. She has been reportedly accepted to [facility] and they are waiting for bed availability. I have personally spent 35 minutes of critical care time in the direct management of this patient. This is a life/limb threatening event. This includes time spent evaluating patient, direct bedside care, chart review, placing orders, interpretation of diagnostic studies, discussion with consultants, patient, and family members, as well as other required patient management activities. This time is exclusive of all separately billable procedures, and teaching time and separate from and in addition to any other critical care service time. Documented By: Lloyd Lui DO [place] Score Date Score Was Generated: Sep 08, 2016 [place] Total: 19 Consults & Procedures Consultants: Hem/Onc - Dr Jordan Procedures: R IJ placed 09/08/[address] Lui Data Medications: Current Inpatient Medications Medications (Trade) Dose Ordered Sig/Shiela Route Start Time Stop Time Status Last Admin Dose Admin Acetaminophen (Tylenol Tab) 650 mg Q4H PRN PO 09/06/16 19:15 10/06/16 19:14 09/10/16 20:33 650 MG Polyethylene (Miralax Powder Packet) 17 gm DAILY PRN PO 09/06/16 19:15 10/06/16 19:14 Ergocalciferol (Vitamin D Cap) 50,000 interunit Q4D PO 09/06/16 22:00 10/20/16 22:01 09/10/16 20:33 50,000 INTERUNIT Vancomycin HCl (Consult) 1 ea UD PRN N/A 09/07/16 19:15 10/07/16 19:14 Ibuprofen (Advil Tab) 400 mg Q6H PRN PO 09/08/16 21:00 10/08/16 20:59 Ioversol (Optiray 320) 125 ml UD PRN IV 09/09/16 12:00 09/13/16 11:59 Magnesium Oxide (Mag-Ox Tab) 400 mg BID PO 09/10/16 09:00 10/10/16 08:59 09/11/16 09:07 400 MG Caspofungin 50 mg/ Sodium Chloride 260 ml @ 250 mls/hr DAILY@1900 IV 09/11/16 19:00 09/23/16 20:03 Cefepime HCl 2000 mg/Dextrose 112.5 ml @ 200 mls/hr Q8H IV 09/10/16 20:00 09/24/16 12:34 09/11/16 03:55 200 MLS/HR Famotidine 20 mg/ Dextrose 102 ml @ 200 mls/hr Q12H IV 09/10/16 23:00 10/10/16 22:59 09/10/16 22:42 200 MLS/HR Vancomycin HCl 1000 mg/Sodium Chloride 270 ml @ 125 mls/hr Q12H IV 09/11/16 09:00 09/20/16 23:59 09/11/16 09:07 125 MLS/HR Levothyroxine Sodium (Synthroid Tab) 50 mcg DAILYBB PO 09/11/16 08:30 10/11/16 08:29 09/11/16 09:07 50 MCG Vital Signs: Date Time Temp Pulse Resp B/P (MAP) Pulse Ox O2 Delivery O2 Flow Rate FiO2 09/11/16 08:00 Nasal Cannula 2.0 09/11/16 08:00 36.7 88 19 136/88 (104) 95 Nasal Cannula 2.0 09/11/16 06:00 77 20 128/84 (99) 95 Nasal Cannula 2.0 09/11/16 05:00 82 21 154/81 (105) 96 Nasal Cannula 2.0 09/11/16 04:00 Nasal Cannula 2.0 09/11/16 04:00 36.7 78 19 153/78 (103) 97 Nasal Cannula 2.0 09/11/16 03:00 73 19 144/84 (104) 97 Nasal Cannula 2.0 09/11/16 02:00 77 20 146/73 (97) 97 Nasal Cannula 2.0 09/11/16 01:00 67 19 152/74 (100) 96 Nasal Cannula 2.0 09/11/16 00:00 Nasal Cannula 2.0 09/11/16 00:00 36.6 80 19 152/74 (100) 96 Nasal Cannula 2.0 09/10/16 23:00 75 21 152/71 (98) 95 Nasal Cannula 2.0 09/10/16 22:00 79 22 144/74 (97) 96 Nasal Cannula 2.0 09/10/16 21:00 82 23 147/78 (101) 96 Nasal Cannula 2.0 09/10/16 20:47 81 27 139/81 (100) 96 Nasal Cannula 2.0 09/10/16 20:32 74 26 132/67 (88) 96 Nasal Cannula 2.0 09/10/16 20:00 84 20 135/69 (91) 92 Nasal Cannula 2.0 09/10/16 20:00 Nasal Cannula 2.0 09/10/16 19:30 36.6 87 22 120/65 98 2.0 09/10/16 19:00 36.6 86 22 142/72 98 2.0 09/10/16 18:40 36.6 74 20 115/64 97 09/10/16 18:26 36.5 78 16 106/90 96 09/10/16 17:02 80 22 127/71 (89) 97 Nasal Cannula 2.0 09/10/16 16:02 71 20 98/46 (63) 96 Nasal Cannula 2.0 09/10/16 16:00 Nasal Cannula 2.0 09/10/16 15:02 36.7 74 19 101/48 (65) 96 Nasal Cannula 2.0 09/10/16 14:02 79 21 115/63 (80) 95 Nasal Cannula 2.0 09/10/16 13:02 79 21 98/42 (60) 95 Nasal Cannula 2.0 09/10/16 12:00 36.5 82 22 110/76 (87) 94 Nasal Cannula 2.0 09/10/16 12:00 Nasal Cannula 2.0 09/10/16 11:00 36.5 73 21 100/60 95 2.0 09/10/16 10:15 36.9 80 23 96/58 90 2.0 09/10/16 10:00 36.9 85 24 95/51 95 09/10/16 10:00 36.9 85 24 95/51 (66) 95 Nasal Cannula 2.0 Laboratory Results: Last 24 Hours Test 09/10/16 16:14 09/10/16 19:30 09/10/16 20:50 09/11/16 00:46 White Blood Count 1.79 K/uL Red Blood Count 2.72 M/uL Hemoglobin 7.8 g/dL Hematocrit 23.3 % Mean Corpuscular Volume 85.7 fL Mean Corpuscular Hemoglobin 28.7 pg Mean Corpuscular Hemoglobin Concent 33.5 g/dl Platelet Count 7 K/uL 15 K/uL Mean Platelet Volume 9.0 fL RDW Standard Deviation 54.2 fL RDW Coefficient of Variation 17.6 % Nucleated RBC Absolute Count (auto) 0.02 K/uL Neutrophils % (Manual) 51.8 % Lymphocytes % (Manual) 39.7 % Monocytes % (Manual) 1.7 % Basophils % (Manual) 3.4 % Metamyelocytes % 1.7 % Myelocytes % 1.7 % Nucleated Red Blood Cells % 1.1 % Neutrophils # (Manual) 0.93 K/uL Total Absolute Neutrophils 0.93 K/uL Lymphocytes # (Manual) 0.71 K/uL Total Absolute Lymphocytes 0.71 K/uL Monocytes # (Manual) 0.03 K/uL Basophils # (Manual) 0.06 K/uL Metamyelocytes # 0.03 K/uL Myelocytes # 0.03 K/uL Smudge Cells PRESENT Toxic Granulation 1+ Toxic Vacuolation 1+ Hypochromasia PRESENT Anisocytosis PRESENT Lactic Acid Level 7.9 mmol/L Procalcitonin 2.47 ng/ml Stool Occult Blood POSITIVE Vancomycin Level Trough 11.1 mcg/ml Bedside Glucose 168 mg/dl Test 09/11/16 05:25 09/11/16 08:54 White Blood Count 2.88 K/uL Red Blood Count 3.54 M/uL Hemoglobin 9.9 g/dL Hematocrit 30.0 % Mean Corpuscular Volume 84.7 fL Mean Corpuscular Hemoglobin 28.0 pg Mean Corpuscular Hemoglobin Concent 33.0 g/dl Platelet Count 12 K/uL Mean Platelet Volume 10.2 fL RDW Standard Deviation 52.3 fL RDW Coefficient of Variation 17.3 % Nucleated RBC Absolute Count (auto) 0.04 K/uL Neutrophils % (Manual) 70.3 % Lymphocytes % (Manual) 9.6 % Eosinophils % (Manual) 0.9 % Metamyelocytes % 0.9 % Nucleated Red Blood Cells % 1.4 % Neutrophils # (Manual) 2.02 K/uL Total Absolute Neutrophils 2.02 K/uL Lymphocytes # (Manual) 0.28 K/uL Total Absolute Lymphocytes 0.80 K/uL Eosinophils # (Manual) 0.03 K/uL Metamyelocytes # 0.03 K/uL Percent Large Granular Lymphocytes 18.3 % Absolute Large Granular Lymphocytes 0.53 K/uL Platelet Estimate SIGNIFIC DECREASED Sodium Level 137 mmol/L Potassium Level 4.1 mmol/L Chloride Level 103 mmol/L Carbon Dioxide Level 23 mmol/L Anion Gap 11.0 mmol/L Blood Urea Nitrogen 18 mg/dl Creatinine 0.70 mg/dl Est Creatinine Clear Calc Drug Dose 68.8 ml/min Estimated GFR () 98.2 Estimated GFR (Non- 84.8 BUN/Creatinine Ratio 25.4 Random Glucose 147 mg/dl Lactic Acid Level 7.2 mmol/L Calcium Level 8.1 mg/dl Phosphorus Level 2.2 mg/dl Magnesium Level 1.9 mg/dl Free Thyroxine 0.79 ng/dl Resident Tracking Resident Involvement: Resident Care Provided Care Provided: Adult Hospital Medicine (ICU)
[2016-09-11] MEDS: FAMOTIDINE IV INJ 20 MG in DEXTROSE 5% 100ML 100 ML IV SCH (11:04)
--- NOTE | 2016-09-11 14:20 | Discharge Instructions ---
Discharge Instructions Date of Service Sep 11, 2016. Admission Reason for Admission: Sob, Thrombocytopenia Discharge Discharge Diagnosis / Problem: sob, pancytopenia, elevated lactic acid Discharge Goals Goal(s): Decrease discomfort Activity Recommendations Activity Level: Assistance Required . Additional Information Patient informed of condition: Yes Advance Directives: Yes DNR: Yes Level of Care: Other (transferring to [facility]) Communicable Disease: No Prognosis: Stable Oxygen at (LPM): 2lts via NC Prabhakar Catheter: Yes Instructions / Follow-Up Instructions / Follow-Up followup as recommended. PLEASE CHECK THE MEDICATION RECONCILIATION FOR ACCURATE MEDICATIONS Current Hospital Diet Patient's current hospital diet: AHA Diet (Heart Healthy) Discharge Diet Recommended Diet: AHA Diet (Heart Healthy) Pending Studies Studies pending at discharge: no Physician Orders On Transfer Special Precautions: FALL AND ASPIRATION PRECAUTIONS IV Therapy: IV ABX Vital Signs: EVERY 8HRS Additional Orders: PLEASE CHECK THE MEDICATION RECONCILIATION FOR ACCURATE MEDICATIONS Medical Emergencies . Who to Call and When: Medical Emergencies: If at any time you feel your situation is an emergency, please call 911 immediately. . Non-Emergent Contact Non-Emergency issues call your: Primary Care Provider . . "Provider Documentation" section prepared by Arnold Gleason. . Core Measure Problem Core Measures: None
--- NOTE | 2016-09-11 16:55 | Progress Note ---
Internal Med Progress Note Date of Service: Sep 11, 2016. Provider Documentation: SUBJECTIVE: sob slightly better feeling tired eating ok diarrhea slightly better ok for transfer to [place] OBJECTIVE: Vital Signs-as noted below Exam: General-alert and awake. Not in distress ENT-Normal hearing Neck-no neck masses, supple Lungs-cta b/l no wheezing or crackles Heart-s1 and s2 heard regular rate and rhythm, no murmurs Abdomen-soft bowel sounds present non tender no distension Extremities- extremity edema present no erythema Neuro-alert and awake moves extremities Lab data as noted below. ASSESSMENT & PLAN: 76 yo F with CLL who was recently discharged after treatment for pneumonia and lower platelets who presents with new hypoxia and significant thrombocytopenia 1. SOB with Hypoxia-Hx of CLL. currently saturating ok v/q scan intermediate probability lower extremity Doppler no DVT CXR no acute findings no heparin as platelets are very low Sob could also be from anemia and CLL s/p central line 09/08/16 saturating fine on 2lts close monitor in icu Transferred to [place] 2. Elevated lactic acid mild temp spike empiric iv zosyn and vanco cx no growth so far zosyn changed to unasyn hemodynamics stable . Edema- Ct abd/pelvis no obvious lymph or venous obstruction has anasarca low albumin 4. Anemia -multifactorial, chronically low 2/2 bone marrow suppression from chemo and malignancy. Also recently phlebotomized frequently in hospital. No active bleeding at this time. hb dropped to 6.1 s/p two units transfused hb 9.9 today will monitor 4. Thrombocytopenia- persistent s/p 5 units of platelets transfused so far platelets 12 today transferring to [facility] today 5. Pancytopenia mostly from chemo and cll heme/onco following if no improvement heme/onco will try to transfer to [place]. Transferring to [place] today 6. Fatigue-25OH checked and she is deficient. TSH, B12, Folate or normal.. 6.Oral Thrush -fluconazole started, sputum culture ordered. 7. CKDIII-at baseline. 8. CLL-denies constitutional symptoms, last chemo was August 12. Oncology consulted and notified 9. Hypothyroidism-TSH normal, . Cont home Synthroid. Transferring to [place] Vital Signs: Date Time Temp Pulse Resp B/P (MAP) Pulse Ox O2 Delivery O2 Flow Rate FiO2 09/11/16 16:00 93 Nasal Cannula 2.0 09/11/16 16:00 36.4 85 27 141/80 (100) 94 Nasal Cannula 2.0 09/11/16 15:00 93 27 135/102 (113) 92 Nasal Cannula 2.0 09/11/16 14:29 36.7 85 26 94 Nasal Cannula 09/11/16 14:00 36.7 85 26 150/86 (107) 94 Nasal Cannula 2.0 09/11/16 12:00 Nasal Cannula 2.0 09/11/16 10:00 36.7 65 19 149/88 (108) 95 Nasal Cannula 2.0 09/11/16 08:00 Nasal Cannula 2.0 09/11/16 08:00 36.7 88 19 136/88 (104) 95 Nasal Cannula 2.0 09/11/16 06:00 77 20 128/84 (99) 95 Nasal Cannula 2.0 09/11/16 05:00 82 21 154/81 (105) 96 Nasal Cannula 2.0 09/11/16 04:00 Nasal Cannula 2.0 09/11/16 04:00 36.7 78 19 153/78 (103) 97 Nasal Cannula 2.0 09/11/16 03:00 73 19 144/84 (104) 97 Nasal Cannula 2.0 09/11/16 02:00 77 20 146/73 (97) 97 Nasal Cannula 2.0 09/11/16 01:00 67 19 152/74 (100) 96 Nasal Cannula 2.0 09/11/16 00:00 Nasal Cannula 2.0 09/11/16 00:00 36.6 80 19 152/74 (100) 96 Nasal Cannula 2.0 09/10/16 23:00 75 21 152/71 (98) 95 Nasal Cannula 2.0 09/10/16 22:00 79 22 144/74 (97) 96 Nasal Cannula 2.0 09/10/16 21:00 82 23 147/78 (101) 96 Nasal Cannula 2.0 09/10/16 20:47 81 27 139/81 (100) 96 Nasal Cannula 2.0 09/10/16 20:32 74 26 132/67 (88) 96 Nasal Cannula 2.0 09/10/16 20:00 84 20 135/69 (91) 92 Nasal Cannula 2.0 09/10/16 20:00 Nasal Cannula 2.0 09/10/16 19:30 36.6 87 22 120/65 98 2.0 09/10/16 19:00 36.6 86 22 142/72 98 2.0 09/10/16 18:40 36.6 74 20 115/64 97 09/10/16 18:26 36.5 78 16 106/90 96 09/10/16 17:02 80 22 127/71 (89) 97 Nasal Cannula 2.0 Lab Results: Results Past 24 Hours Test 09/10/16 19:30 09/10/16 20:50 09/11/16 00:46 09/11/16 05:25 Range/Units Stool Occult Blood POSITIVE NEGATIVE Platelet Count 15 12 130-400 K/uL Vancomycin Level Trough 11.1 SEE COMMENT mcg/ml Bedside Glucose 168 70-90 mg/dl White Blood Count 2.88 4.8-10.8 K/uL Red Blood Count 3.54 4.2-5.4 M/uL Hemoglobin 9.9 12.0-16.0 g/dL Hematocrit 30.0 37-47 % Mean Corpuscular Volume 84.7 80-100 fL Mean Corpuscular Hemoglobin 28.0 25-34 pg Mean Corpuscular Hemoglobin Concent 33.0 32-36 g/dl Mean Platelet Volume 10.2 7.4-10.4 fL RDW Standard Deviation 52.3 36.4-46.3 fL RDW Coefficient of Variation 17.3 11.5-14.5 % Nucleated RBC Absolute Count (auto) 0.04 0-0 K/uL Neutrophils % (Manual) 70.3 % Lymphocytes % (Manual) 9.6 % Eosinophils % (Manual) 0.9 % Metamyelocytes % 0.9 % Nucleated Red Blood Cells % 1.4 % Neutrophils # (Manual) 2.02 1.4-6.5 K/uL Total Absolute Neutrophils 2.02 1.4-6.5 K/uL Lymphocytes # (Manual) 0.28 1.2-3.4 K/uL Total Absolute Lymphocytes 0.80 1.2-3.4 K/uL Eosinophils # (Manual) 0.03 0-0.5 K/uL Metamyelocytes # 0.03 0-0 K/uL Percent Large Granular Lymphocytes 18.3 % Absolute Large Granular Lymphocytes 0.53 K/uL Platelet Estimate SIGNIFIC DECREASED Sodium Level 137 136-145 mmol/L Potassium Level 4.1 3.5-5.1 mmol/L Chloride Level 103 98-107 mmol/L Carbon Dioxide Level 23 21-32 mmol/L Anion Gap 11.0 3-11 mmol/L Blood Urea Nitrogen 18 7-18 mg/dl Creatinine 0.70 0.60-1.20 mg/dl Est Creatinine Clear Calc Drug Dose 68.8 ml/min Estimated GFR () 98.2 Estimated GFR (Non- 84.8 BUN/Creatinine Ratio 25.4 10-20 Random Glucose 147 70-99 mg/dl Lactic Acid Level 7.2 0.4-2.0 mmol/L Calcium Level 8.1 8.5-10.1 mg/dl Phosphorus Level 2.2 2.5-4.9 mg/dl Magnesium Level 1.9 1.8-2.4 mg/dl Free Thyroxine 0.79 0.80-1.60 ng/dl Test 09/11/16 08:54 Range/Units Procalcitonin 1.97 0-0.5 ng/ml
[2016-09-11] MEDS ORDERED: CASPOFUNGIN INJ 50 MG in SODIUM CHLORIDE 0.9% 250ML 250 ML IV SCH (19:00)
[2016-09-12] MEDS ORDERED: VANCOMYCIN TROUGH SCH (08:30)
--- NOTE | 2016-09-13 19:57 | Discharge Summary ---
Discharge Summary Date of Service Sep 13, 2016. Discharge Summary Admission Date: Sep 06, 2016 at 19:13 Discharge Date: Sep 11, 2016 Discharge Disposition: Acute care facility Principal Diagnosis: PANCYTOPENIA CLL SOB Secondary Diagnoses/Problems: (1) Anemia Status: Chronic (2) Chronic lymphocytic leukemia Status: Chronic (3) CKD (chronic kidney disease), stage III Status: Chronic (4) HTN (hypertension) Status: Chronic (5) Hypertension Status: Chronic (6) Hypothyroidism Status: Chronic (7) Lymphoma Status: Chronic (8) Thrombocytopenia Status: Chronic Procedures: VENOUS DOPPLER : No evidence of deep venous thrombus within the bilateral lower extremities. CT HEAD: No acute intracranial findings CT ABD/PELVIS: 1. Extensive abdominal and pelvic lymphadenopathy with moderate improvement since PET/CT of July 08, 2016. Sinus are consistent with history of CLL. 2. Evidence of volume overload, including anasarca, small left pleural effusion and small amount of ascites. 3. Increased size of the bilateral lower lateral chest wall musculature including the latissimus dorsi. This could be due to edema although increased attenuation raise the possibility of intramuscular hematomas. V/Q SCAN: Indeterminate study. The patient was unable to tolerate the ventilatory portion of the examination. CTA CHEST: 1. No CT evidence of acute pulmonary embolism 2. Small bilateral pleural effusions left greater than right. 3. Stable mediastinal lymphadenopathy 4. Ascites 5. Probable splenomegaly Consultations: CRITICAL CARE HEME/ONCO Medication Reconciliation Continued Medications: Albuterol (Ventolin Hfa) 60 Puffs/5400 Mcg Aers 2 PUFF INH Q4H for SOB/Wheezing, #1 Cholecalciferol (Vitamin D) 1,000 Unit Tab 1000 UNITS PO DAILY Lactobacillus Acidophilus (Lactinex) Tab 2 TAB PO BID17, #30 TAB Levothyroxine Sodium (Synthroid) 100 Mcg Tab 100 MCG PO DAILY, TAB Discontinued Medications: Hydrochlorothiazide (Hctz) 12.5 Mg Cap 12.5 MG PO DAILY, TAB Levofloxacin (Levofloxacin) 500 Mg Tab 500 MG PO DAILY@11 for 5 Days, #5 TAB Admission Information HPI (per Admitting provider): 76 yo F with CLL on chemo, last treatment was August 12, who presents with worsening shortness of breath and weight gain with swelling of lower extremities at home. She was recently discharged from the hospital last week and states that she was short of breath with swelling at that time, but had felt improved. She was discharged on levaquin for suspected pneumonia that was seen on CXR and some steroids. She doesn't typically require oxygen and is requiring 2L at this time. She denies any cough, fevers, chills, nausea, vomiting, diarrhea, blood in stool. She denies any pain or new LAD or nodules anywhere. Daughter is at bedside and states that her mother has been very fatigued for the past two months and mostly sleeps all day. Her weight has fluctuated where she was around 150lbs early last year, then most recently in the clinic was noted to be 114lb on 08/24/16. Today, on 09/06/16, her weight is 150lbs. She did have a CT scan in June 2016 that revealed new extensive retroperitoneal and mesenteric LAD. In the ER, she is oxygenating well on 2L via NC. Workup reveals a respiratory alkalosis with metabolic compensation. CXR does not reveal a pneumonia as before, and she was give IVF. Physical Exam (per Admitting): GEN: WNWD, in no acute distress, alert and appropriate but falls asleep easily. Appears pale and very fatigued. No increased work of breathing on 2L NC. HEENT: NC/AT, PERRL, normal sclerae, conjunctival hemorrhage in R eye was noted. MMM, Posterior pharyngeal whitish exudate noted all throughout the posterior pharynx, no cervical LAD CARDIO: reg rate, S1/2 heard without m/g/r LUNGS: CTA bilaterally, no crackles, rales or wheezes, good diaphragmatic excursion ABD: soft, non-tender, non-distended, no rebound or guarding, +BS EXTREMITY: RP and DP palpable 2+ bilat, warm and well-perfused. She has 3+ pitting edema on bother legs up past her knees and some abdominal swelling. She has petechiae on the lower extremities and significant ecchymosis on the LUE posteriorly. NEURO: Limited exam 2/2 significant fatigue, CN 2-12 grossly intact, mentating well MUSC: 5/5 strength throughout, however, she is moving very slowly around in the bed as it appears to take a large amount of energy to move. SKIN: warm and dry and changes as above. Hospital Course 76 yo F with CLL who was recently discharged after treatment for pneumonia and lower platelets who presents with new hypoxia and significant thrombocytopenia 1. SOB with Hypoxia-Hx of CLL. currently saturating ok v/q scan intermediate probability lower extremity Doppler no DVT CXR no acute findings no heparin as platelets are very low Sob could also be from anemia and CLL s/p central line 09/08/16 saturating fine on 2lts close monitor in icu Transferred to [place] 2. Elevated lactic acid mild temp spike empiric iv zosyn and vanco cx no growth so far zosyn changed to unasyn hemodynamics stable . Edema- Ct abd/pelvis no obvious lymph or venous obstruction has anasarca low albumin 4. Anemia -multifactorial, chronically low 2/2 bone marrow suppression from chemo and malignancy. Also recently phlebotomized frequently in hospital. No active bleeding at this time. hb dropped to 6.1 s/p two units transfused hb 9.9 today will monitor 4. Thrombocytopenia- persistent s/p 5 units of platelets transfused so far platelets 12 today transferring to [facility] today 5. Pancytopenia mostly from chemo and cll heme/onco following if no improvement heme/onco will try to transfer to [place]. Transferring to [place] today 6. Fatigue-25OH checked and she is deficient. TSH, B12, Folate or normal.. 6.Oral Thrush -fluconazole started, sputum culture ordered. 7. CKDIII-at baseline. 8. CLL-denies constitutional symptoms, last chemo was August 12. Oncology consulted and notified 9. Hypothyroidism-TSH normal, . Cont home Synthroid. Transferring to [place] Total time spent on discharge = 35MINUTES This includes examination of the patient, discharge planning, medication reconciliation, and communication with other providers. Discharge Instructions Please take this sheet to every appointment for the next month Discharge Instructions Date of Service Sep 11, 2016. Admission Reason for Admission: Sob, Thrombocytopenia Discharge Discharge Diagnosis / Problem: sob, pancytopenia, elevated lactic acid Discharge Goals Goal(s): Decrease discomfort Activity Recommendations Activity Level: Assistance Required . Additional Information Patient informed of condition: Yes Advance Directives: Yes DNR: Yes Level of Care: Other (transferring to [facility]) Communicable Disease: No Prognosis: Stable Oxygen at (LPM): 2lts via NC Prabhakar Catheter: Yes Instructions / Follow-Up Instructions / Follow-Up followup as recommended. PLEASE CHECK THE MEDICATION RECONCILIATION FOR ACCURATE MEDICATIONS Current Hospital Diet Patient's current hospital diet: AHA Diet (Heart Healthy) Discharge Diet Recommended Diet: AHA Diet (Heart Healthy) Pending Studies Studies pending at discharge: no Physician Orders On Transfer Special Precautions: FALL AND ASPIRATION PRECAUTIONS IV Therapy: IV ABX Vital Signs: EVERY 8HRS Additional Orders: PLEASE CHECK THE MEDICATION RECONCILIATION FOR ACCURATE MEDICATIONS Medical Emergencies . Who to Call and When: Medical Emergencies: If at any time you feel your situation is an emergency, please call 911 immediately. . Non-Emergent Contact Non-Emergency issues call your: Primary Care Provider . . "Provider Documentation" section prepared by Arnold Gleason. . Core Measure Problem Core Measures: None
== END 2016-09-11 20:30 | disposition short-term general hospital (02) | DRG 840 ==
LOC: C.EDB 13:07 → C.2T 19:13 → ENRESERV 20:00 → C.MSICU 09-08 09:37
PROVIDERS: ADMIT Hospitalist; ATTEND Internal Medicine
PROC: 05HM33Z Insertion of Infusion Device into Right Internal Jugular Vein, Percutaneous Approach (ICD-10-PCS; principal; 2016-09-08)
DX: C91.10 Chronic lymphocytic leukemia of B-cell type not having achieved remission (principal); D61.810 Antineoplastic chemotherapy induced pancytopenia; B37.0 Candidal stomatitis; Z82.49 Family history of ischemic heart disease and other diseases of the circulatory system; N18.3 Chronic kidney disease, stage 3 (moderate); E03.9 Hypothyroidism, unspecified; I12.9 Hypertensive chronic kidney disease with stage 1 through stage 4 chronic kidney disease, or unspecified chronic kidney disease; D69.6 Thrombocytopenia, unspecified; D63.8 Anemia in other chronic diseases classified elsewhere; Z87.891 Personal history of nicotine dependence; Z66 Do not resuscitate; R60.1 Generalized edema; R53.83 Other fatigue